=== PATIENT | female | born 1955 | race Caucasian/White ===

== ENCOUNTER 2024-11-28 19:37 | Emergency (ER) | payer MEDICARE, SELFPAY ==
--- OUTSIDE RECORDS SUMMARY | 2024-11-08 14:30 | XMS_ITS | Encounter Summary ---
Author Organization [place] Address [facility] [place] [address] Care Team Providers Care Factory Assembler Name Role Phone Clinic, [place] [facility] Primary Care Provider David Nelson MD Unavailable [phone] Reason for Referral * Consultation (Routine: Next available opening) - Pending Review Specialty Diagnoses / Procedures Referred By Anne polanco Referred To Contact Gastroenterology Diagnoses Epigastric pain Therese Harrington PA-C [address] [place] [address] Phone: tel: fax: Referral ID Status Reason Start Date Expiration Date V isits Requested Visits Authorized [id number] Pending Review 11/08/2024 11/08/2025 1 1 Question Answer Service: Upper Endoscopy Upper Endoscopy Type: EGD Sedation Concerns: No medical conditions affecting sedation Sedation Type: Moderate/Conscious Sedation Reason for Upper Endoscopy: severe epigastric pain Preferred Location: [facility] Patient Scheduling Instructions: [facility] will call you to coordinate your care as prescribed by the provider. If you don t hear from a employee representative within 2 business days, please call . Comments Please be aware that coverage of these services is subject to the terms and limitations of your health insurance plan. Call member services at your health plan with any benefit or coverage questions. [employer] will call you to coordinate your care as prescribed by the provider. If you don t hear from a employee representative within 2 business days, please call . Reason for Visit * Reason Comments Gastrointestinal Problem Encounter Details Date Type Department Care Team ([place] st Contact Info) Description 11/08/2024 2:30 PM CDT Office Visit [facility] [id number] [place] [id number] Therese Harrington PA-C [address] [place] [address] Epigastric pain (Primary Dx) Social History Tobacco Use Types Packs/Day Years Used Date Smoking Tobacco: Some Days Cigarettes 0.5 52.5 Started: 1971 Smokeless Tobacco: Never Tobacco Cessation:Ready to Q uit: Not Asked; Counseling Given: Not Answered Comments:09/23/24 have cut back to about 2 cigarettes a day/ Less than half a pack lately Alcohol Use Standard Drinks/Week Comments No 0 (1 standard drink = 0.6 oz pur e alcohol) PHQ-2 Answer Date Recorded PHQ-2 Score 1 07/22/2024 Adolescent Education Answer Date Record ed Getting School Help Needed Not on file 03/08 Food Insecurity Answer Date Recorded Within the past 12 months, d id you worry that your food would run out before you got money to buy more? No 11/08/2024 Within the past 12 months, d id the food you bought just not last and you didn t have money to get more? No 11/08/2024 Housing Stability Answer Date Recorded Do you have housing? (Negarin g is defined as stable permanent housing and does not include staying outside in a car, in a tent, in an abandoned building, in an overnight correction, or couch-surfing.) No 11/08/2024 Are you worried about losing your housing? No 11/08/2024 Financial Resource Strain Answer Date R ecorded Within the past 12 months, h ave you or your family members you live with been unable to get utilities (heat, electricity) when it was really needed? No 11/08/2024 Transportation Needs Answer Date Record ed Within the past 12 months, h as lack of transportation kept you from medical appointments, getting your medicines, non-medical meetings or appointments, work, or from getting things that you need? No 11/08/2024 Interpersonal Safety Answer Date Record ed Do you feel physically and e motionally safe where you currently live? Yes 11/08/2024 Within the past 12 months, h ave you been hit, slapped, kicked or otherwise physically hurt by someone? No 11/08/2024 Within the past 12 months, h ave you been humiliated or emotionally abused in other ways by your partner or ex-partner? 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 Gender Identity Not on file Sexual Orientation Not on file documented as of this encounter Last Filed Vital Signs Vital Sign Reading Time Taken Comments Blood Pressure 102/68 11/08/2024 2:14 PM CDT Pulse 54 11/08/2024 2:14 PM CDT Temperature 36.4 C (97.6 F) 11/08/2024 2:14 PM CDT Respiratory Rate 16 11/08/2024 2:14 PM CDT Oxygen Saturation 95% 11/08/2024 2:14 PM CDT Inhaled Oxygen Concentration - - Weight 62.4 kg (137 lb 9.6 oz) 11/08/2024 2:14 P M CDT Height 156.8 cm (5' 1.75) 11/08/2024 2:14 PM CD T Body Mass Index 25.37 11/08/2024 2:14 PM CDT documented in this encounter Progress Notes * Therese Harrington PA-C - 11/08/2024 2:30 PM CDT Assessment & Plan Will get h pylori and the following labs. Advised omeprazole 40 mg daily Risks, benefits, side effects and intended purposes discussed. Advised upper GI. Will contact patient with results when known and determine plan Epigastric pain - Helicobacter pylori Antigen Stool; Future - omeprazole (PRILOSEC) [address] capsule; Take 1 capsule (40 mg) by mouth daily. - Comprehensive metabolic panel - Lipase - Adult GI Piledriver Carpenter Referral - Procedure Only; Future - Helicobacter pylori Antigen Stool Nicotine/Tobacco Cessation She reports that she has been smoking cigarettes. She started smoking about 52 years ago. She has a26.2 pack-year smoking history. She has never used smokeless tobacco. Nicotine/Tobacco Cessation Plan Information offered: Patient not interested at this time BMI Estimated body mass index is 25.37 kg/m?? as calculated from the following: Height as of this encounter: 1.568 m (5' 1.75). Weight as of this encounter: 62.4 kg (137 lb 9.6 oz). Messi Chu is a 69 year old, presenting for the following health issues: Gastrointestinal Problem 11/08/2024 1:59 PM Additional Questions Roomed by Lance Accompanied by self History of Present Illness Reason for visit: Really bad stomach pain Symptom onset: More than a month Symptoms include: Pain Symptom intensity: Severe Symptom progression: Staying the same Had these symptoms before: No What makes it worse: Eating and walking What makes it better: Not really laying on my side mostly She is taking medications regularly. Stomach pain Onset/Duration: one month Description: pain all the time mid epigastric, harder to breath, after eating if walks stomach feels hard, low appetite Intensity: severe, 9/10 Progression of Symptoms: same Accompanying Signs & Symptoms: Does it feel like food gets stuck or trouble swallowing: YES feels food is stuck Nausea: No Vomiting (bloody?): No Abdominal Pain: YES mid epigastric Black-Tarry stools: No Bloody stools: No History: Previous similar episodes: No Previous ulcers: YES bleeding ulcer around 2018 Precipitating factors: Caffeine use: YES 10 cups a day Alcohol use: No NSAID/Aspirin use: Yes baby Aspirin Tobacco use: YES little now Worse with toast makes stomach feel hard, walking Alleviating factors: lay on her sides Therapies tried and outcome: Lifestyle changes: None Medications: none Review of Systems Constitutional, HEENT, cardiovascular, pulmonary, GI, , musculoskeletal, neuro, skin, endocrine and psych systems are negative, except as otherwise noted. Objective BP 102/68 (BP Location: Right arm, Patient Position: Sitting, Cuff Size: Adult Regular) Pulse 54 Temp 97.6 ??F (36.4 ??C) (Oral) Resp 16 Ht 1.568 m (5' 1.75) Wt 62.4 kg (137 lb 9.6 oz) LMP (LMP Unknown) SpO2 95% BMI 25.37 kg/m?? Body mass index is 25.37 kg/m??. Physical Exam GENERAL: alert and no distress RESP: lungs clear to auscultation - no rales, rhonchi or wheezes CV: regular rate and rhythm, normal S1 S2, no S3 or S4, no murmur, click or rub, no peripheral edema ABDOMEN: tenderness epigastric and no organomegaly or masses Signed Electronically by: Therese Harrington PA-C documented in this encounter Plan of Treatment Upcoming Encounters Date Type Department Care Team (Latest Contact Info) Description 12/22/2024 10:30 AM CDT Hospital Encounter [facility] Endoscopy [address] [phone] Curtis Riggins [facility] [place] [address] 12/22/2024 10:30 AM CDT - 12/22/2024 11:00 AM CDT Surgery [facility] Endoscopy [address] [phone] Curtis Riggins MD [facility] [place] [address] [address] Esophagoscopy, gastroscopy, duodenoscopy (EGD), combined 01/16/2025 Ancillary Procedure [facility] Heart Care [address] [facility] [address] [place] [phone] Montrell Mckinley MD [address] [place] [address] Scheduled Orders Name Type Priority Associated Diagnoses Orde r Schedule Helicobacter pylori Antigen Stool Lab Routine Epigastric pain Expected: 11/08/2024 (Approximate), Expires: 12/08/2024 Scheduled Procedures Name Priority Associated Diagnoses Date/Ti me ESOPHAGOGASTRODUODENOSCOPY Epigastric pain 12/22/2024 10:30 AM CDT Scheduled Referrals Name Type Priority Associated Diagnoses Orde r Schedule Adult GI Piledriver Carpenter Referral - Procedure Only Referral Routine: Next available opening Epigastric pain Expected: 11/08/2024 (Approximate), Expires: 11/08/2025 documented as of this encounter Procedures Procedure Name Priority Date/Time Associated Diagnosis Comments LIPASE Routine 11/08/2024 2:47 PM CDT Epigastric pain COMPREHENSIVE METABOLIC PANEL Routine 11/08/2024 2:47 PM CDT Epigastric pain documented in this encounter Results * Lipase (11/08/2024 2:47 PM CDT) Lipase 21 13 - 60 U/L 11/09/2024 12:43 AM CDT [facility] Blood BLOOD SPECIMEN / Unknown Venipuncture / Unknown 11/08/2024 2:47 PM CDT 11/08/2024 2:47 PM CDT Therese Harrington PA-C LAB - BLOOD MELODY GARCIA Final Result [facility] Core Lab [address] [facility], [address] [place] [address] * (ABNORMAL) Comprehensive metabolic panel (11/08/2024 2:47 PM CDT) Sodium 139 135 - 145 mmol/L 11/09/2024 12:43 AM CDT [facility] Potassium 4.2 3.4 - 5.3 mmol/L 11/09/2024 12:43 AM CDT [facility] Carbon Dioxide (CO2) 24 22 - 29 mmol/L 11/09/2024 12:43 AM CDT [facility] Anion Gap 9 7 - 15 mmol/L 11/09/2024 12:43 AM CDT [facility] Urea Nitrogen 9.3 8.0 - 23.0 mg/dL 11/09/2024 12:43 AM CDT [facility] Creatinine 1.04(H) 0.51 - 0.95 mg/dL 11/09/2024 12:43 AM CDT [facility] GFR Estimate 58(L) >60 mL/min/1.7 3m2 11/09/2024 12:43 AM CDT [facility] Comment:eGFR calculated us2020 CKD-EPI equation. Calcium 9.2 8.8 - 10.4 mg/dL 11/09/2024 12:43 AM CDT [facility] Chloride 106 98 - 107 mmol/L 11/09/2024 12:43 AM CDT [facility] Glucose 98 70 - 99 mg/dL 11/09/2024 12:43 AM CDT [facility] Alkaline Phosphatase 48 40 - 150 U/L 11/09/2024 12:43 AM CDT [facility] AST 15 0 - 45 U/L 11/09/2024 12:43 AM CDT [facility] ALT 8 0 - 50 U/L 11/09/2024 12:43 AM CDT [facility] Protein Total 6.4 6.4 - 8.3 g/dL 11/09/2024 12:43 AM CDT [facility] Albumin 3.8 3.5 - 5.2 g/dL 11/09/2024 12:43 AM CDT [facility] Bilirubin Total 0.7 <=1.2 mg/dL 11/09/2024 12:43 AM CDT [facility] Blood BLOOD SPECIMEN / Unknown Venipuncture / Unknown 11/08/2024 2:47 PM CDT 11/08/2024 2:47 PM CDT Therese Harrington PA-C LAB - BLOOD MELODY GARCIA Final Result [facility] Core Lab [address] [facility], [address] [place] [address] documented in this encounter Visit Diagnoses Diagnosis Epigastric pain- Primary Abdominal pain, epigastric Epigastric pain Abdominal pain, epigastric documented in this encounter Care Teams Factory Assembler Relationship Specialty Start Date End Date Clinic, [place] [facility] [address] [place] [address] PCP - General 04/22/17 David Nelson MD [address] [place] [address] Assigned Heart and Vascular Provider 08/14/24 documented as of this encounter
[2024-11-28] VITALS (12 sets, daily range): BP systolic 101–116; BP diastolic 58–71; PULSE 49–64; RESP 11–32; TEMP 36.8; O2SAT 93–99; BMI 26.5
--- OUTSIDE RECORDS SUMMARY | 2024-11-28 19:39 | XMS_ITS | Encounter Summary ---
Author Organization [place] Address [address] [place] [address] Care Team Providers Care Plate Maker Name Role Phone Hal Wilson MD Primary Care Provider [phone] Aracelis Montgomery MD [facility] Sarah Hdz MD Primary Care Provider + [phone] Bunny Vera MD Primary Care Provider [phone] [facility] Primary Care Provider David Nleson MD Unavailable [phone] Berna Dorantes-C Unavailable David Nelson MD Unavailable [phone] David Nelson MD Unavailable [phone] Therese Harrington-C Unavailable Encounter Details Date Type Department Care Team (Late st Contact Info) Description 07/08/2005 Office Visit-[facility] Clinic [address] [place] [address] Unknown, MD Valentina Social History Tobacco Use Types Packs/Day Years Used Date Smoking Tobacco: Never Assessed Comments Unknown Sex and Gender Information Value Date Recorded Sex Assigned at Not on file 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 - Congestive Heart Failure, 428.0 2. - Cardiomyopathy Ischemic PHASE 3, 414.8 3. NV-Acute Anterior, 410.11 4. - Cardiac Arrest, 427.5 5. - Hyperlipidemia, 272.4 ALLERGIES NKA MEDICATIONS (including any changes made today) 1. Aspirin 81 mg, 1 p.o. q.d. 2. Combivent 103 mcg-18 mcg/inh, Two puffs p.o. QID 3. Coreg 12.5 mg, 1 p.o. b.i.d. 4. Plavix 75 mg, 1 p.o. q.d. 5. Eplerenone 25 mg, 1 p.o. q.d. 6. Nitroglycerin 0.4 mg, Take as Directed 7. Lipitor 20 mg, 1 p.o. q.d. 8. Altace 5 mg, 1 p.o. q.d. CHIEF COMPLAINTS Followup of - Congestive Heart Failure HISTORY OF PRESENT ILLNESS Kimberley is a 50-year-old female who presents today in the [facility] clinic for follow-up regarding cardiomyopathy. You may recall that she had a very complicated course in the hospital. She was admitted at [facility] following a cardiac arrest and was discharged approximately one month later.She underwent emergent angioplasty and stenting to her proximal LAD and was resuscitated from the cardiac arrest. She initially had an EF estimated at 5% but upon discharge this came up to 25%. 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 She had one 4-5 beat run of nonsustained ventricular tachycardia which was noted on incidental monitoring. She underwent hypothermic protocol and was intubated as stated for 24 hours post cardiac catheterization. She also hadan intra-aortic balloon pump placed and seemed to recover quite well. She is currently wearing a Life Vest which she will wear until July when she has her repeat echocardiogram to determine if ICD therapy is necessary. When I last saw Kimberley, she was actually feeling quite well. We went over a lot of education and looked over her medications. Her blood pressure was very low and therefore we were unable to increase any of her cardiomyopathy meds. In reviewing her diet with her today, she has not been very diligentabout watching sodium. She had fish sticks and pizza yesterday. She was unaware of the fact that foods that are prepared would be high in sodium. We did discuss this last time but apparently she didnot recall this. I referred her back to the C.O.R.E. clinic booklet that she was given at our last office visit and discussed with her that everything she eats she must look at the labels prior. I also told her that in general canned foods and frozen prepared dishes are very high in sodium. Kimberley denies any chest discomfort, no neck, jaw or arm pain. She has not had dizziness or light-headedness, no episodes of syncope or presyncope, no PND, orthopnea or pedal edema. PAST HISTORY Past Medical Illnesses: no previous history of significant medical illnesses. Past Cardiac Illnesses: no previous history of cardiac disease. Infectious Diseases: no previous history of significant infectious diseases. Surgical Procedures: no previous surgical procedures. Trauma History: no previous history of significant trauma. Cardiology Procedures-Invasive: no previous interventional or invasive cardiology procedures. Cardiology Procedures-Noninvasive: no previous non-invasive cardiovascular testing. 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, EF 5-10%, cypher stent placed in LAD Left Ventricular Ejection Fraction: EF 30-35% PMHx Echo Results: EF 25-30%, Akinesis of the mid and distal anterior apical mid and distal septal coley, distal inferior wall hypokinetic, trace pericardial effusion, left-sided mod pleural effusion FAMILY HISTORY: Father - Age 87, ; Mother - alive and well; Brother 1 - alive and well; Brother 2 - alive and well; Brother 3 - alive and well; Sister 1 - alive and well; Sister 2 - alive and well; CARDIAC RISK FACTORS Tobacco Abuse: used to smoke, but quit; Family History of Heart Disease: negative; Hyperlipidemia: positive; Diabetes Mellitus: negative; Prior History of Heart Disease: negative; Sedentary Life Style:positive; Menopausal:no hormonal replacement SOCIAL HISTORY Alcohol Use - denies drinking and stopped 05/20/05; Smoking - used to smoke but quit and on 05/20/05; Diet - low sodium (less than 2 grams); Lifestyle - single; Exercise - walking; Seat Belt Use - always; 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 EYES denies diplopia, history of glaucoma or visual field defects. EARS, NOSE, THROAT, MOUTH hoarseness RESPIRATORY snoring CARDIOVASCULAR negative for palpitations, chest pain, orthopnea, PND, peripheral edema, syncope or claudication. ABDOMINAL denies change in bowel habits, dyspepsia, ulcer disease, hematochezia or melena. GENITOURINARY-FEMALE post menopausal without hormonal replacement MUSCULOSKELETAL denies any history of arthritic symptoms or back problems. NEUROLOGICAL denies any history of recurrent headaches, strokes, TIA, or seizure disorder. PSYCHIATRIC denies any history of depression, substance abuse or change in cognitive functions. ENDOCRINE hyperlipidemia HEMATOLOGICAL/IMMUNOLOGIC denies any food allergies, seasonal allergies, bleeding disorders or lymphadenopathy. PHYSICAL EXAMINATION VITAL SIGNS: Blood Pressure: 100/78 Sitting, Left arm, regular cuff 100/76 Sitting, Right arm, regular cuff Pulse- 64.00/min. Weight- 156.00 lbs. Height- 61.00 Temperature- .00 CONSTITUTIONAL cooperative, alert and oriented,well developed, well nourished, in no acute distress. SKIN warm and dry to touch, no apparent skin lesions, or masses noted. HEAD normocephalic, atraumatic EYES Pupils equal and round, conjunctivae and lids unremarkable, sclera white, no xanthalasma ENT no pallor or cyanosis, dentition good NECK carotid pulses are full and equal bilaterally, JVP normal, no carotid bruit, no thyromegaly CHEST clear to auscultation CARDIAC regular rhythm, S1 normal, S2 normal, No S3 or S4, Apical impulse not displaced, no murmurs, gallops or rubs detected., frequent ectopy ABDOMEN abdomen soft, bowel sounds normoactive, no masses, no hepatosplenomegaly, non- tender, no bruits PERIPHERAL PULSES pulses full and equal in all extremities, no bruits auscultated. EXTREMITIES & BACK no deformities, clubbing, cyanosis, erythema or edema observed. There are no spinal abnormalities noted. Normal muscle strength and tone. NEUROLOGICAL no gross motor deficits noted, affect appropriate, oriented to time, person and place. MEDICATIONS UPDATED TODAY: Lipitor 20 mg, 1 p.o. q.d., 0 Altace 5 mg, 1 p.o. q.d., #60 MEDICATION STOPPED TODAY: Altace 2.5 mg IMPRESSIONS/PLAN 1. Cardiomyopathy with her EF last estimated at 25%. She is currently stage C, Class II heart failure patient. She is not optimized on medical therapy and given her blood pressure we are going to have a difficult time getting up to optimal doses. Today I would like to increase her Altace to 5mg. She has a mildly elevated SVR at 1200 and this may help to bring that down. I am hesitant to further increase the Coreg at this time but may consider that next time if her blood pressure allows. She will be following up with Dr. Estrada in July with an echocardiogram and office visit to reevaluate her heart function. At that time, further visits in the C.O.R.E. clinic can be scheduled as necessary. For now, Kimberley will continue to weigh herself daily and call me should her weight go up greater than2 pounds overnight or greater than 5 pounds in a week as well as if she has any symptoms, problems or concerns. Thank you very much for allowing me to participate in her care and I would be happy to see her again in the future. TODAYS ORDERS 1. Basic Metabolic Panel Today 2. Cholesterol Fasting 1 month Isis Vergara documented in this encounter Plan of Treatment Upcoming Encounters Date Type Department Care Team (Latest Contact Info) Description 12/22/2024 10:30 AM CDT Hospital Encounter [facility] Endoscopy [address] [phone] Curtis Riggins MD [facility] [address] [id number] 12/22/2024 10:30 AM CDT - 12/22/2024 11:00 AM CDT Surgery [facility] Endoscopy [address] [phone] Curtis Riggins MD [facility] [address] [id number] Esophagoscopy, gastroscopy, duodenoscopy (EGD), combined 01/16/2025 Ancillary Procedure [facility] Heart Care [address] [facility] [address] [address] [phone] Montrell Mckinley MD [address] [place] [address] Scheduled Procedures Name Priority Associated Diagnoses Date/Ti ia ESOPHAGOGASTRODUODENOSCOPY Epigastric pain 12/22/2024 10:30 AM CDT documented as of this encounter Visit Diagnoses Not on filedocumented in this encounter Care Teams Plate Maker Relationship Specialty Start Date End Date Hal Wilson MD [address] [place] [address] PCP - General 04/19/08 02/22/12 Aracelis Montgomery MD PCP - General 02/23/12 04/27/13 Sarah Isabel MD PCP - General Internal Medicine 04/28/13 10/30/14 Bunny Vera MD PCP - General Internal Medicine 10/31/14 04/21/[address] [address] PCP - General 04/22/17 David Nelson MD [address] [address] [address] Assigned Heart and Vascular Provider 03/16/20 09/15/20 Berna Dorantes PAJaelC [address] [place] [address] Assigned Heart and Vascular Provider 09/16/20 08/10/21 David Nelson MD [address] [address] [address] Assigned Heart and Vascular Provider 08/11/21 05/15/24 David Nelson MD [address] [facility] [address] [address] Assigned Heart and Vascular Provider 08/14/24 Therese Harrington PA-C [address] [place] [address] Assigned PCP 11/14/24 documented as of this encounter
--- OUTSIDE RECORDS SUMMARY | 2024-11-28 19:39 | XMS_ITS | Encounter Summary ---
Author Organization [facility] Address [address] [place] [address] Care Team Providers Care Repair Department Manager Name Role Phone Hal Wilson MD Primary Care Provider [phone] Aracelis Montgomery MD Primary Care Provider [facility] Sarah Hdz MD Primary Care Provider + [phone] Bunny Vera MD Primary Care Provider [phone] [facility] Primary Care Provider David Nelson MD Unavailable [phone] Berna Dorantes-C Unavailable David Nelson MD Unavailable [phone] David Nelson MD Unavailable [phone] Therese Harrington-C Unavailable Encounter Details Date Type Department Care Team (Late st Contact Info) Description 08/22/2005 Office Visit-[facility] [address] [place] [address] Unknown, MD Valentina Social History Tobacco Use Types Packs/Day Years Used Date Smoking Tobacco: Never Assessed Comments Unknown Sex and Gender Information Value Date Recorded Sex Assigned at Not on file 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 DATE: 08/22/2005 KMIBERLEY CONTRERAS DATE OF : 1955 AGE: [age] years old Referring Physician: NONE,NO Referring Clinic: 1 CURRENT DIAGNOSES 1. - Congestive Heart Failure, 428.0 2. - Cardiomyopathy Ischemic PHASE 3, 414.8 3. [place]-Acute Anterior, 410.11 4. - Cardiac Arrest, 427.5 5. - Hyperlipidemia, 272.4 ALLERGIES NKA MEDICATIONS (including any changes made today) 1. Aspirin 81 mg, 1 p.o. q.d. 2. Combivent 103 mcg-18 mcg/inh, Two puffs p.o. QID 3. Coreg 12.5 mg, 1 p.o. b.i.d. 4. Nitroglycerin 0.4 mg, Take as Directed 5. Lipitor 20 mg, 1 p.o. q.d. 6. Inspra 25 mg, 1 p.o. q.d. 7. Prednisone 20 Mg, 1 p.o. bidx4 days,then qd until done 8. Altace 5 Mg, 1 p.o. q.d. 9. Plavix 75 Mg, 1 p.o. q.d. CHIEF COMPLAINTS F/u HISTORY OF PRESENT ILLNESS Mrs. Contreras is here with her daughter present. Her daughter continues to smoke but Kimberley has stopped. Kimberley had an acute anterior myocardial infarction associated with cardiac arrest in May. Herleft ventricular function by echo just done this week shows left ventricular ejection fraction of 25% still with extensive anterior wall infarct. She has had no angina. She has had no clinical heart failure. She denies any arrhythmic sensations but she is wearing a LifeVest because she had a lot ofpost [place] arrhythmias. Today I took this opportunity to talk to her about the indications for prophylactic ICD. She is nowat least 60 days post event. I talked to the patient and her daughter about the MADIT II study which showed a statistically important decrease in mortality with prophylactic ICD therapy. We went overthe procedure itself, talked about the implant, procedural risks including infection, bleeding, pneumothorax, and cardiac perforation at roughly 1% or less. We also talked about ICD testing at the time of the implant. She I think has a good understanding of the rationale for the procedure since she is willing to wear the LifeVest. Today her lipid profile is still a little high, but I chose not to discuss the issue, to try to notconfuse the problems with the ICD therapy. In addition today, she complained of a rash when she was put on spironolactone instead of Inspra. She was seen in the Emergency Room and given 50 mg of prednisone which she said greatly made the rashgo away, but as soon as she ran out of prednisone the rash has returned. She is not really itching but she asked today for more prednisone. Her exam shows that she is not in heart failure. Her lungs are clear. Her blood pressure is a little bit soft, systolic roughly 100. Heart rate is regular. PAST HISTORY Past Medical Illnesses: hyperlipidemia Past Cardiac Illnesses: cardiomyopathy(ischemic), coronary artery disease, S/P myocardial infarction- anterior, resuscitatedcardiac arrest outside of hospital Cardiology Procedures-Invasive: PTCA with intracoronary stent placement of proximal LAD May 2005 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, EF 5-10%, cypher stent placed in LAD Left Ventricular Ejection Fraction: EF 30-35%, 25% by echo 07/28 PMHx Echo Results: EF 25-30%, Akinesis of [...] History of Heart Disease: negative; Hyperlipidemia: positive; Hypertension: negative; Diabetes Mellitus: negative; Prior History of Heart Disease: negative; Obesity:negative; Sedentary Life Style:positive; Age:positive; Menopausal:no hormonal replacement SOCIAL HISTORY Alcohol Use - denies drinking and stopped 05/20/05; Smoking - used to smoke but quit and on 05/20/05; Diet - low sodium (less than 2 grams); Lifestyle - single; Exercise - walking; Seat Belt Use - always; 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 EYES denies diplopia, history of glaucoma or visual field defects. EARS, NOSE, THROAT, MOUTH hoarseness RESPIRATORY snoring, denies dyspnea, snoring, cough, wheezing or hemoptysis. CARDIOVASCULAR negative for palpitations, chest pain, orthopnea, [...] lymphadenopathy. PHYSICAL EXAMINATION VITAL SIGNS: Blood Pressure: 94/62 Sitting, Left arm, regular cuff Pulse- 70.00/min. Weight- 154.00 lbs. Height- 61.00 Temperature- .00 CONSTITUTIONAL in no acute distress, stocky SKIN petchial rash all over body HEAD normocephalic, atraumatic EYES PERRL, EOMS intact without nystagmus ENT no pallor or cyanosis, dentition good NECK carotid pulses are full and equal bilaterally, JVP normal, no carotid bruit, no thyromegaly CHEST clear to auscultation CARDIAC no murmurs, gallops or rubs detected ABDOMEN no hepatosplenomegaly, mildly obese PERIPHERAL PULSES pulses full and equal in all extremities, no bruits auscultated. EXTREMITIES & BACK no clubbing, cyanosis or edema NEUROLOGICAL no gross motor deficits noted, affect appropriate, oriented to time, person and place. MEDICATIONS UPDATED TODAY: Prednisone 20 mg, 1 p.o. q.d., 10 Prednisone 20 Mg, 1 p.o. bidx4 days,then qd until done, 14 Altace 5 Mg, 1 p.o. q.d., #30 Plavix 75 Mg, 1 p.o. q.d., #30 IMPRESSIONS/PLAN 1. Severe ischemic cardiomyopathy now roughly two months post event. 2. Widespread rash throughout her body, likely urticarial rash due to drug reaction. 3. History of smoking. At the current time she is not smoking. RECOMMENDATIONS: 1. She wants to think about having an ICD this weekend. I gave her a pamphlet describing ICD, goingover what we talked about today. I have asked her to call us as soon as she is able to make a decision, in which case we can go ahead and proceed. She just needs to have a prophylactic device put in.2. I gave her another course of prednisone 20 mg b.i.d. for the next four days, then to go to 20 mgq.d. for the next six days, and then stop. I have asked her to see Dr. Phelan if this rash continues. 3. She will continue on all of her current cardiac medications including Plavix. I told her thather risk of superficial bleeding might be a little bit greater since she will be on Plavix when herICD is implanted. 4. I briefly talked about the problems that all of the vendors have had with their ICDs, and at this point in time the patient has not expressed any vendor preference. TODAYS ORDERS 1. ICD Initial Implant HICD anytime she wants 2. F/U with Vanita Ba, MSN, ANP routine, discuss lipids Ba Estrada M.D. cc:Yvette Phelan M.D. documented in this encounter Plan of Treatment Upcoming Encounters Date Type Department Care Team (Latest Contact Info) Description 12/22/2024 10:30 AM CDT Hospital Encounter [facility] [address] [id number] Curtis Riggins MD [facility] [address] [id number] 12/22/2024 10:30 AM CDT - 12/22/2024 11:00 AM CDT Surgery [facility] [address] [id number] Curtis Riggins MD [facility] [place] [address] Esophagoscopy, gastroscopy, duodenoscopy (EGD), combined 01/16/2025 Ancillary Procedure [facility] [address] [facility] [address] [place] [phone] Montrell Mckinley MD [address] [place] [address] Scheduled Procedures Name Priority Associated Diagnoses Date/Ti me ESOPHAGOGASTRODUODENOSCOPY Epigastric pain 12/22/2024 10:30 AM CDT documented as of this encounter Visit Diagnoses Not on filedocumented in this encounter Care Teams Repair Department Manager Relationship Specialty Start Date End Date Hal Wilson MD [address] [place] [address] PCP - General 04/19/08 02/22/12 Aracelis Montgomery MD PCP - General 02/23/12 04/27/13 Sarah Isabel MD PCP - General Internal Medicine 04/28/13 10/30/14 Bunny Vera MD PCP - General Internal Medicine 10/31/14 04/21/[address] [address] PCP - General 04/22/17 David Nelson MD [address] [place] [address] Assigned Heart and Vascular Provider 03/16/20 09/15/20 Berna Dorantes PA-C [address] [place] [address] Assigned Heart and Vascular Provider 09/16/20 08/10/21 David Nelson MD [address] [place] [address] Assigned Heart and Vascular Provider 08/11/21 05/15/24 David Nelson MD [address] [place] [address] Assigned Heart and Vascular Provider 08/14/24 Therese Harrington PA-C [address] [place] [address] Assigned PCP 11/14/24 documented as of this encounter
--- OUTSIDE RECORDS SUMMARY | 2024-11-28 19:39 | XMS_ITS | Encounter Summary ---
Author Organization [facility] Address [address] [place] [address] Care Team Providers Care Fiberglass Quality Technician Name Role Phone Hal Wilson MD Primary Care Provider [phone] Aracelis Montgomery MD Primary Care Provider Unavailabl Sarah Hdz MD Primary Care Provider + [phone] Bunny Vera MD Primary Care Provider [phone] [facility] Primary Care Provider David Nelson MD Unavailable [phone] Berna Dorantes-C Unavailable David Nelson MD Unavailable [phone] David Nelson MD Unavailable [phone] Therese Harrington-C Unavailable Encounter Details Date Type Department Care Team (Late st Contact Info) Description 04/07/2008 Office Visit-[facility] [address] [place] [address] Unknown, DoctorMD Social History Tobacco Use Types Packs/Day Years Used Date Smoking Tobacco: Every Day Comments:less than 1/2 ppd Alcohol Use Standard Drinks/Week Comments Not Asked 0 (1 standard drink = 0.6 oz pur e alcohol) Comments No Sex and Gender Information Value Date Recorded Sex Assigned at Not on file 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 Hepatomegaly, 789.1 2. - Hyperlipidemia, 272.4 3. ICD-[id number], V45.02 4. - Cardiac Arrest, 427.5 5. - Congestive Heart Failure, 428.0 6. - Cardiomyopathy Ischemic PHASE 3, 414.[address]-Acute Anterior, 410.11 ALLERGIES NKA MEDICATIONS (prior to changes made today) 1. Diovan 80 Mg, 1 p.o. q.d. 2. Inspra 25 Mg, 1 p.o. q.d. 3. Coreg 12.5 Mg, 1 p.o. b.i.d. 4. Nitroglycerin 0.4 mg, Take as Directed 5. Aspirin 81 mg, 1 p.o. q.d. 6. Simvastatin 40 Mg, NONE SINCE 2007 CHIEF COMPLAINTS f/u lipids HISTORY OF PRESENT ILLNESS Ms. Contreras is a 52-year-old female coming in for routine follow-up appointment. She had last seen Dr. Gonzalez in the office in June of this year. Her history includes previous anterior myocardial infarction associated with a cardiac arrest in May of 2005. Echo at that time showed ejection fraction of 25% with extensive anterior wall infarct. Patient had been wearing a life vest secondary to post infarct arrhythmias and underwent defibrillator implant in August of 2005 with a Guidant device. The patient unfortunately continues to smoke cigarettes. She does not exercise regularly. She was previously given a prescription for Chantix but never utilized this. She has not had any firings of her ICD. Unfortunately despite recurrent requests she has not established with a primary physician jigar. The patient comes in today and did have a fasting lipid panel. She does tell me, however, her simvastatin was discontinued roughly two months ago when it was not filled secondary to her absence in follow-up. When asked the patient states she has been feeling well without significant issues. However, upon review of lab work below she does admit to belly pain for approximately 4-5 months. She states that she has diarrhea after she eats just about anything. She denies any nausea or vomiting. She states that her appetite is somewhat reduced. She denies any chest pain, dyspnea, or lower extremity edema. She has no syncope though occasional dizziness. She does comment that she admits to a couple of mixeddrinks every night. Lab work today shows triglycerides at 131, total cholesterol 203, HDL 74, LDL 103, ALT 138. Of note, she has had an elevated ALT in the past though only mildly so. In 2005, her ALT peaked at 56. Other checks most recently in June were actually normal with a normal AST at 40. Given the abnormality of her ALT, I did draw a full hepatic panel off this lab work as well as requested amylase and lipase. These labs are pending. Please see below for remaining history and physical exam. PAST HISTORY Past Medical Illnesses: hyperlipidemia Past Cardiac Illnesses: cardiomyopathy(ischemic), coronary artery disease, S/P myocardial infarction- anterior, resuscitatedcardiac arrest outside of hospital Cardiology Procedures-Invasive: PTCA with intracoronary stent placement of proximal LAD May 2005, ICD 09/01/05 Cardiology Procedures-Noninvasive: echocardiogram March 2007 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, EF 5-10%, cypher stent placed in LAD PMHx Echo Results: EF 25-30%, Akinesis of the mid and distal anterior apical mid and distal septal cloey, distal inferior wall hypokinetic, trace pericardial effusion, left-sided mod pleural effusion, 03/31 no significant change Left Ventricular Ejection Fraction: EF 30-35%, 25% by echo 07/28, 03/31 20-25% per echo FAMILY HISTORY: Father - Age 87, ; Mother - alive and well; Brother 1 - alive and well; Brother 2 - alive and well; Brother 3 - alive and well; Sister 1 - alive and well; Sister 2 - alive and well; CARDIAC RISK FACTORS Tobacco Abuse: currently smoking, 6-8 cig's per day; Family History of Heart Disease: negative; Hyperlipidemia: positive; Hypertension: negative; Diabetes Mellitus: negative; Prior History of Heart Disease: negative; Obesity:negative; Sedentary Life Style:positive; Age:positive; Menopausal:no hormonal replacement SOCIAL HISTORY Alcohol Use - drinks daily; Smoking - smokes cigarettes, and 6-8 per day; Diet - low sodium (less than 2 grams) and caffeine use-3-4 per day; Lifestyle - single; Exercise - walking; Seat Belt Use - always; 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 EARS, NOSE, THROAT, MOUTH denies any hearing loss, epistaxis, hoarseness or difficulty speaking. RESPIRATORY cough CARDIOVASCULAR dizziness, light headedness, when getting up ABDOMINAL abdominal disomfort 4-5 month, worse after eating, diarrhea after eating, no N/V. GENITOURINARY-FEMALE post menopausal without hormonal replacement MUSCULOSKELETAL chronic back pain NEUROLOGICAL denies any history of recurrent headaches, strokes, TIA, or seizure disorder. PSYCHIATRIC stress ENDOCRINE hyperlipidemia HEMATOLOGICAL/IMMUNOLOGIC denies any food allergies, seasonal allergies, bleeding disorders or lymphadenopathy. PHYSICAL EXAMINATION VITAL SIGNS: Blood Pressure: 100/60 Sitting, Left arm, large cuff Pulse- 68.00/min. Weight- 176.00 lbs. Height- 61.00 Temperature- .00 CONSTITUTIONAL cooperative, alert, in no acute distress SKIN palmar erythema, spider angiomas HEAD normocephalic EYES conjunctivae and lids unremarkable, Pupils equal and round, EOMS intact ENT ears, nose and throat unremarkable NECK no thyromegaly, carotid pulses are full and equal bilaterally without bruits CHEST clear to auscultation, increased A-P diameter, normal symmetry CARDIAC RRR without murmur/lift/trhill ABDOMEN non-tender, moderately obese PERIPHERAL PULSES pulses full and equal in all extremities EXTREMITIES & BACK no edema PSYCHIATRIC appropriate NEUROLOGICAL moves extremities equally MEDICATIONS UPDATED/STARTED TODAY: Simvastatin 40 Mg, NONE SINCE 2007, #30 MEDICATIONS REFILLED/STOPPED TODAY: Simvastatin 40 Mg 1 p.o. q.d. NONE SINCE 2007 #30 Refill and Simvastatin 40 mg 1 p.o. q.d. #30 Refill IMPRESSION AND PLAN: Ms. Contreras is a 52-year-old female coming in for follow-up with above history. 1. Cardiac status reviewed with patient without a significant abnormality. Of note, she is not on statin but given the abnormal liver function this would not be added at present. We will follow-up toassure that this can be restarted if her liver status stabilizes. 2. ICD will be checked per routine today. 3. Concerning findings given markedly elevated ALT, palmar erythema, spider angiomas, telangiectasias, and alcohol use. Interestingly though she has actually been off of her simvastatin which might have actually been beneficial for her given her liver status. Hepatic panel, amylase, lipase pending.She has been having some other problems with diarrhea after eating and belly pain. Given these symptoms it is of up most importance that she follow-up in the very near future with an drug inspector and may require referral to potentially GI as well. She has been told on multiple occasions to establish with an drug inspector. I did discuss this case with Dr. Benavidez with recommendation to refer her to [facility] for further work-up. She was given the name of the clinic to follow-up and she is encouraged should this does not work with her insurance to follow-up with other general practitioner though again she states she has not routinely followed up with anyone. I did discuss with her the possibility of hepatic failure if this is not dealt with in a timely manner. She is encouraged to discontinue alcohol use. 4. We did discuss the importance of discontinuing tobacco use as well. Thank you for the opportunity to see Kimberley Kvtroy today. I would like her to follow-up again with Dr. Gonzalez. She is encouraged again the importance of following up with an drug inspector. TODAYS ORDERS 1. Lipid profile/ALT 1 day 2. Hepatic Profile Today- please use sample drawn this AM 3. Amylase Today- if possible off sample from this AM 4. (Define) Lipase - if possible off today's blood sample 5. F/U with Jose Alejandro Gonzalez MD 3 months 6. Return Visit 1 week - ESTABLISH WITH GALLEY STRIPPER; recommended JANAY Parada documented in this encounter Plan of Treatment Upcoming Encounters Date Type Department Care Team (Latest Contact Info) Description 12/22/2024 10:30 AM CDT Hospital Encounter [facility] [address] [phone] Curtis Riggins MD [facility] [address] [id number] 12/22/2024 10:30 AM CDT - 12/22/2024 11:00 AM CDT Surgery [facility] [address] [id number] Curtis Riggins MD [facility] [address] [place] [address] Esophagoscopy, gastroscopy, duodenoscopy (EGD), combined 01/16/2025 Ancillary Procedure [facility] [address] [place] [phone] Montrell Mckinley MD [address] [place] [address] Scheduled Procedures Name Priority Associated Diagnoses Date/Ti me ESOPHAGOGASTRODUODENOSCOPY Epigastric pain 12/22/2024 10:30 AM CDT documented as of this encounter Visit Diagnoses Not on filedocumented in this encounter Care Teams Fiberglass Quality Technician Relationship Specialty Start Date End Date Hal Wilson MD [address] [place] [address] PCP - General 04/19/08 02/22/12 Aracelis Montgomery MD PCP - General 02/23/12 04/27/13 Sarah Isabel MD PCP - General Internal Medicine 04/28/13 10/30/14 Bunny Vera MD PCP - General Internal Medicine 10/31/14 04/21/[address] [address] PCP - General 04/22/17 David Nelson MD [address] [place] [address] Assigned Heart and Vascular Provider 03/16/20 09/15/20 Berna Dorantes PA-C [address] [place] [address] Assigned Heart and Vascular Provider 09/16/20 08/10/21 David Nelson MD [address] [place] [address] Assigned Heart and Vascular Provider 08/11/21 05/15/24 David Nelson MD [address] [place] [address] Assigned Heart and Vascular Provider 08/14/24 Therese Harrington PA-C [address] [place] [address] Assigned PCP 11/14/24 documented as of this encounter
--- OUTSIDE RECORDS SUMMARY | 2024-11-28 19:39 | XMS_ITS | Encounter Summary ---
Author Organization [facility] Address [address] [place] [address] Care Team Providers Care Transition Rn Name Role Phone Hal Wilson MD Primary Care Provider [phone] Aracelis Montgomery MD Primary Care Provider [facility] Sarah Hdz MD Primary Care Provider + [phone] Bunny Vera MD Primary Care Provider [phone] [facility] Primary Care Provider David Nelson MD Unavailable [phone] Berna Dorantes-C Unavailable David Nelson MD Unavailable [phone] David Nelson MD Unavailable [phone] Therese Harrington-C Unavailable Encounter Details Date Type Department Care Team (Late st Contact Info) Description 06/17/2005 Office Visit-[facility] [address] [place] [address] Unknown, MD Valentina Social History Tobacco Use Types Packs/Day Years Used Date Smoking Tobacco: Never Assessed Comments Unknown Sex and Gender Information Value Date Recorded Sex Assigned at Not on file 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 - Congestive Heart Failure, 428.0 2. [place]-Acute Anterior, 410.11 3. - Cardiac Arrest, 427.5 4. - Hyperlipidemia, 272.4 ALLERGIES NKA MEDICATIONS (including any changes made today) 1. Aspirin 81 mg, 1 p.o. q.d. 2. Combivent 103 mcg-18 mcg/inh, Two puffs p.o. QID 3. Coreg 12.5 mg, 1 p.o. b.i.d. 4. Plavix 75 mg, 1 p.o. q.d. 5. Eplerenone 25 mg, 1 p.o. q.d. 6. Altace 2.5 mg, 1 p.o. q.d. 7. Nitroglycerin 0.4 mg, Take as Directed CHIEF COMPLAINTS Hospital Follow up HISTORY OF PRESENT ILLNESS Kimberley is a 50-year-old female who presents today as a new patient in the [facility] regarding hercardiomyopathy. You may recall that she had a very complicated course in the hospital. She was admitted at [facility] following a cardiac arrest and discharged about a month later. She underwent emergent angioplasty and stenting to her proximal LAD and was resuscitated out of the cardiac arrest. She had a severe reduction in her left ventricular function estimated at 5% initially, but prior to discharge it had come up to 25%. She also had anoxic encephalopathy, which resolved following the cardiac arrest. She had one 4 to 5 beat run of asymptomatic, nonsustained ventricular tachycardia, which was noted on incidental monitoring. She underwent the hypothermic protocol and was intubated and sedated for 24 hours post cardiac catheterization. She also had an intraaortic balloon pump placed and seemed to recover quite well. She is currently wearing a Life-Vest, which she will wear until her heart function is reevaluated in July of this year. Today, I do not have any lab work to review but I did review her EKG and bioimpedance test with her. The EKG shows sinus rhythm with a heart rate of 67 beats a minute. Her bioimpedance test shows mildly elevated SVR at 1210 standing and 1243 sitting. Thoracic fluid content is low at 22. Cardiac output is 3.6 standing and 4.2 sitting. Blood pressure is very low. It was very difficult to hear her blood pressure. My nurse was unable to hear it. I was able to hear 68/40 and I was able to palpate 70systolic. The patient denies any dizziness or lightheadedness. She did not bring in a medication list, but will call us later today with her medication as she is taking it. She currently feels well. She is not having any symptoms of dyspnea at rest or on exertion. she hasstopped smoking and drinking, although I do note that I smell smoke on her today. She has not had any further chest discomfort. She does report some sternal soreness due to chest compressions. No PND, orthopnea or pedal edema. PAST HISTORY [...] Cardiology Procedures-Noninvasive: no previous non-invasive cardiovascular testing. 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 PHYSICAL EXAMINATION VITAL SIGNS: Blood Pressure: / Sitting, Left arm, regular cuff 70/ Palpated Pulse- 76.00/min. Weight- 157.00 lbs. Height- 61.00 Temperature- .00 CONSTITUTIONAL cooperative, [...] time, person and place. MEDICATIONS UPDATED TODAY: IMPRESSIONS/PLAN 1. Cardiomyopathy with an EF of 25% following cardiac arrest. This is a 50-year-old female who has recovered quite nicely from an anoxic encephalopathy following her cardiac arrest and acute anteriorwall myocardial infarction. She is a Stage C Class 2 heart failure patient, currently not optimizedon medications. Given her blood pressure today or what we think is her blood pressure, we are unable to further titrate medications. I would like to see how she does over the next few weeks and see if it would be possible to at least try going up on the Altace. Ideally, we will switch this to lisinopril due to cost reasons and since her SVR is mildly elevated, we may be able to safely increase the medicine to 7.5 mg of lisinopril. I will obtain a basic metabolic panel today as spironolactone dk new medication for her. In addition, we will check a TSH and ferratin level as those were not done in the hospital. She did have a basic metabolic panel done and that was quite good with renal function of 12 and 0.96. We are currently working on titrating medications to see if she qualifies for device therapy. She does have a Life-Vest in place for the time being. In addition, she will have a follow up echocardiogram done in July and a visit with Dr. Estrada to review those results. Thank you very much for allowing me to participate in her care. I would be happy to see her again in the future. TODAYS ORDERS 1. T3, Thyroxine, TSH Profile Today 2. Ferritin Today 3. Basic Metabolic Panel Today 4. [facility] F/U Isis Vergara documented in this encounter Plan of Treatment Upcoming Encounters Date Type Department Care Team (Latest Contact Info) Description 12/22/2024 10:30 AM CDT Hospital Encounter [facility] [address] [phone] Curtis Riggins MD [facility] [place] [address] [address] [place] [address] 12/22/2024 10:30 AM CDT - 12/22/2024 11:00 AM CDT Surgery [facility] [address] [phone] Curtis Riggins MD [facility] [place] [address] [address] [place] [address] Esophagoscopy, gastroscopy, duodenoscopy (EGD), combined 01/16/2025 Ancillary Procedure [facility] [address] [facility] [address] [place] [phone] Montrell Mckinley MD [address] [place] [address] Scheduled Procedures Name Priority Associated Diagnoses Date/Ti va ESOPHAGOGASTRODUODENOSCOPY Epigastric pain 12/22/2024 10:30 AM CDT documented as of this encounter Visit Diagnoses Not on filedocumented in this encounter Care Teams Transition Rn Relationship Specialty Start Date End Date Hal Wilson MD [address] [address] PCP - General 04/19/08 02/22/12 Aracelis Montgomery, PCP - General 02/23/12 04/27/13 Sarah Isabel MD PCP - General Internal Medicine 04/28/13 10/30/14 Bunny Vera MD PCP - General Internal Medicine 10/31/14 04/21/[address] [address] PCP - General 04/22/17 David Nelson MD [address] [place] [address] Assigned Heart and Vascular Provider 03/16/20 09/15/20 Berna Dorantes PA-C [address] [place] [address] Assigned Heart and Vascular Provider 09/16/20 08/10/21 David Nelson MD [address] [place] [address] Assigned Heart and Vascular Provider 08/11/21 05/15/24 David Nelson MD [address] [place] [address] Assigned Heart and Vascular Provider 08/14/24 Therese Harrington PA-C [address] [place] [address] Assigned PCP 11/14/24 documented as of this encounter
--- OUTSIDE RECORDS SUMMARY | 2024-11-28 19:39 | XMS_ITS | Encounter Summary ---
Author Organization [facility] Address [facility] [place] [address] Care Team Providers Care Multimedia Production Assistant Name Role Phone Hal Wilson MD Primary Care Provider [phone] Aracelis Montgomery MD Primary Care Provider Unavailabl Sarah Isabel MD Primary Care Provider + [phone] Bunny Vera MD Primary Care Provider [phone] [facility] Primary Care Provider David Nelson MD Unavailable [phone] Berna Dorantes PA-C Unavailable David Nelson MD Unavailable [phone] David Nelson MD Unavailable [phone] Therese Harrington PA-C Unavailable Encounter Details Date Type Department Care Team (Late st Contact Info) Description 01/08/2007 Office Visit-[facility] [place] [address] [facility] [address] [place] [phone] Maryse Rodriguez PA-C XXX RESIGNED XXX [address] [facility] [address] [place] [address] Social History Tobacco Use Types Packs/Day Years Used Date Smoking Tobacco: Never Assessed Comments Unknown Sex and Gender Information Value Date Recorded Sex Assigned at Not on file 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 ICD-[id number], V45.02 2. [place]-Acute Anterior, 410.11 3. - Cardiac Arrest, 427.5 4. - Hyperlipidemia, 272.4 5. - Congestive Heart Failure, 428.0 6. Cardiomyopathy, 425.4 7. - Cardiomyopathy Ischemic PHASE 3, 414.8 ALLERGIES NKA MEDICATIONS (prior to changes made today) 1. Inspra 25 Mg, 1 p.o. q.d. 2. Aspirin 81 mg, 1 p.o. q.d. 3. Nitroglycerin 0.4 mg, Take as Directed 4. Altace 5 Mg, 1 p.o. q.d. 5. Coreg 12.5 Mg, 1 p.o. b.i.d. CHIEF COMPLAINTS Annual HISTORY OF PRESENT ILLNESS Ms. Contreras is a pleasant 51-year-old female coming in for follow-up office visit. This patient experienced acute anterior myocardial infarction, associated with cardiac arrest in May of 2005. Echocardiogram in July of 2005 had shown a 25% ejection fraction, with extensive anterior wall infarct.She previously had been wearing a LifeVest, secondary to post myocardial infarction arrhythmias. She underwent defibrillator implant in August of 2005 with a Guidant device. DFT tests had been performed last year. The patient overall has been feeling well recently. She does admit to approximately 15 pound weightgain. She states that her exercise was somewhat limited after fracturing her left ankle last year. She also admits to some dietary indiscretion. She has restarted smoking, and smokes approximately eight cigarettes daily. The patient denies chest pain, pressure. She has had no episodes of dyspnea, presyncope, syncope, palpitations or lower extremity edema, except for some swelling at the end of the day of her left ankle, which was the fractured site. PAST HISTORY Past Medical Illnesses: hyperlipidemia Past Cardiac Illnesses: cardiomyopathy(ischemic), coronary artery disease, S/P myocardial infarction- anterior, resuscitatedcardiac arrest outside of hospital Cardiology Procedures-Invasive: PTCA with intracoronary stent placement of proximal LAD May 2005, ICD 09/01/05 Cardiac Cath Results: single vessel CAD with [...] replacement SOCIAL HISTORY Alcohol Use - drinks occasionally; Smoking - used to smoke but quit and on 05/20/05; Diet - low sodium (less than 2 grams) and caffeine use-3-4 per day; Lifestyle - single; Exercise - walking; Seat Belt Use - always; 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 EYES denies diplopia, history of glaucoma or visual field defects. EARS, NOSE, THROAT, MOUTH hoarseness RESPIRATORY cough CARDIOVASCULAR negative for palpitations, chest pain, orthopnea, [...] Pressure: 100/78 Sitting, Left arm, regular cuff Pulse- 64.00/min. Weight- 171.00 lbs. Height- 61.00 Temperature- .00 CONSTITUTIONAL in no acute distress, stocky SKIN warm and dry to touch, mottled appearance of arms bilaterally HEAD normocephalic, atraumatic EYES conjunctivae and lids unremarkable, Pupils equal and round, EOMS intact ENT no pallor or cyanosis, dentition good NECK carotid pulses are full and equal bilaterally, JVP normal, no carotid bruit, no thyromegaly CHEST expiratory wheezes upper lung carrillo, otherwise clear to auscultation, the ICD incision in the leftinfraclavicular area was well-healed CARDIAC no murmurs, gallops or rubs detected ABDOMEN no hepatosplenomegaly, mildly obese PERIPHERAL PULSES pulses full and equal in all extremities, no bruits auscultated. EXTREMITIES & BACK clubbing of fingers, no edema or cyanosis NEUROLOGICAL no gross motor deficits noted, affect appropriate, oriented to time, person and place. IMPRESSION/PLAN: Ms. Contreras is a 51-year-old female coming in for follow-up, with above history. 1. History of coronary artery disease. Stable. No anginal symptoms. Continuing medical management. 2. Of note, after the patient left today I noted that she is not on a statin. I will contact this patient in regards to this, as it appears she previously was on Lipitor, and I do not see why this medication was discontinued. I will contact the patient and determine course of action with this, as certainly this patient has indication to be on lifelong statin therapy, with aggressive LDL goal less than70. 3. Ischemic cardiomyopathy. We will recheck echocardiogram in the near future to reassess ejection fraction status. 4. Blood pressure is stable. 5. Weight gain. I have encouraged increased exercise and dietary changes for weight loss. 6. She was encouraged to discontinue smoking. 7. The patient is in-between primary providers, and needs to reestablish secondary to insurance change. She was encouraged to do so. Thank you for the opportunity to see this pleasant patient in the office today. She will be scheduled for six-month follow-up with Dr. Estrada or recommended to come in sooner should symptoms dictate. TODAYS ORDERS 1. 2D, color flow, doppler 3 months 2. F/U with Ba Estrada MD 6 months JANAY Moyer documented in this encounter Plan of Treatment Upcoming Encounters Date Type Department Care Team (Latest Contact Info) Description 12/22/2024 10:30 AM CDT Hospital Encounter [facility] [address] [phone] Curtis Riggins MD [facility] [address] [place] [address] 12/22/2024 10:30 AM CDT - 12/22/2024 11:00 AM CDT Surgery [facility] [address] [phone] Curtis [facility]iggins [facility] [place] [address] Esophagoscopy, gastroscopy, duodenoscopy (EGD), combined 01/16/2025 Ancillary Procedure [facility] [address] [facility] [address] [phone] Montrell Mckinley MD [address] [address] Scheduled Procedures Name Priority Associated Diagnoses Date/Ti me ESOPHAGOGASTRODUODENOSCOPY Epigastric pain 12/22/2024 10:30 AM CDT documented as of this encounter Visit Diagnoses Not on filedocumented in this encounter Care Teams Multimedia Production Assistant Relationship Specialty Start Date End Date Hal Wilson MD [address] [address] PCP - General 04/19/08 02/22/12 Aracelis Montgomery MD PCP - General 02/23/12 04/27/13 Sarah Isabel MD PCP - General Internal Medicine 04/28/13 10/30/14 Bunny Vera MD PCP - General Internal Medicine 10/31/14 04/21/17 [facility] [address] [place] [address] PCP - General 04/22/17 David Nelson MD [address] [address] [id number] Assigned Heart and Vascular Provider 03/16/20 09/15/20 Berna Dorantes PA-C [address] [place] [address] Assigned Heart and Vascular Provider 09/16/20 08/10/21 David Nelson MD [address] [place] [address] Assigned Heart and Vascular Provider 08/11/21 05/15/24 David Nelson MD [address] [place] [id number] Assigned Heart and Vascular Provider 08/14/24 Therese Harrington PA-C [address] [place] [address] Assigned PCP 11/14/24 documented as of this encounter
--- OUTSIDE RECORDS SUMMARY | 2024-11-28 19:39 | XMS_ITS | Encounter Summary ---
Author Organization [place] Address [address] [facility] [place] [address] Care Team Providers Care Admission Nurse Coordinator Name Role Phone Doctor, Aracelis ANN Primary Care Provider Unavailabl e Dewayne Miranda MD Primary Care Provider [phone] Bunny Vera MD Primary Care Provider [phone] [facility] Primary Care Provider David Nelson MD Unavailable [phone] Berna Dorantes PA-C Unavailable David Nelson MD Unavailable [phone] David Nelson MD Unavailable [phone] Therese Harrington PA-C Unavailable Encounter Details Date Type Department Care Team (Late st Contact Info) Description 04/19/2013 Office Visit-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 [id number] DATE: 04/19/2013 KIMBERLEY CONTRERAS DATE OF : 1955 AGE: [age] years old Referring Physician: DEWAYNE MIRANDA Referring Clinic: [facility] CURRENT DIAGNOSES 1. AICD in in situ - BS Teligen, V45.02 2. - Hypertension, 401.1 3. - CAD, 414.00 4. - Hyperlipidemia, 272.4 5. [place]-Acute Anterior, 410.11 6. - Congestive Heart Failure, 428.0 7. - Cardiomyopathy Ischemic PHASE 3, 414.8 ALLERGIES NKA MEDICATIONS (prior to changes made today) 1. Aspirin 81 mg Tablet, 1 p.o. daily 2. carvedilol 12.5 mg tablet, 1 p.o. twice daily 3. eplerenone 25 mg tablet, 1 p.o. daily 4. losartan 25 mg tablet, 1 p.o. daily 5. Nitroglycerin 0.4 mg Tablet, Sublingual, Take as Directed 6. pantoprazole 40 mg tablet,delayed release (DR/EC), 1 p.o. daily 7. simvastatin 20 mg tablet, one tablet nightly CHIEF COMPLAINTS Hypertension HISTORY OF PRESENT ILLNESS Thank you for allowing me to participate in the care of this very delightful patient. As you know, Kimberley is a 57-year-old female with a history of premature coronary disease status post acute cardiac arrest in the setting of an ST elevation anterior myocardial infarction. She had a prolonged hospitalization with complications of cardiogenic shock. Her LV function failed to improve with ejection fraction less than 20%, therefore, an ICD was implanted. I last saw her about a year ago. In Februaryof last year she was hospitalized for an episode of chest discomfort, which was somewhat different from her previous myocardial infarction and it was felt due to her acid reflux disease. She has beenon a proton pump inhibitor ever since with resolution of her symptoms. She did undergo a stress test at that time, which showed a large fixed anterior/intraseptal/apical defect consistent with a transmural infarct without significant ischemia. Ejection fraction was estimated to be about 37%. The pat jacobo continues to smoke cigarettes. She has tried to quit in the past and currently she is not motivated at this time. Her simvastatin was discontinued at the last hospitalization because of her insurance. The patient used to have elevated transaminase, but the last check was only in the 50s. The patient otherwise denies any chest pain or chest discomfort, orthopnea or PND. Her device was checkedtoday showing no evidence of any ventricular tachyarrhythmias. EXAMINATION: In general the patient appears friendly and healthy in no acute distress. Blood pressure is 110/60, heart rate 68. Lungs were clear, but diminished breath sounds. Cardiovascular examination: Normal S1 and S2, it was regular without any murmurs. PAST HISTORY Past Medical Illnesses: hyperlipidemia, HTN, smokes Past Cardiac Illnesses: cardiomyopathy(ischemic), coronary artery disease, S/P myocardial infarction- anterior, resuscitatedcardiac arrest outside of hospital 2004 Cardiac and Vascular Surgeries: ICD insertion 2065, generator change Oct 2010 Cardiac/Vasc Procedures-Invasive: PTCA with intracoronary stent placement of proximal LAD May 2005, ICD 09/01/05 Cardiology Procedures-NonInvasive: echocardiogram 04/28, 07/28, 03/31, myocardial perfusion (Nuc) Feb 2012 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, EF 5-10%, cypher stent placed in LAD PMHx Echo Results: Akinesis of the mid and distal anterior apical mid and distal septal coley, distal inferior wall hypokinetic, trace pericardial effusion, left-sided mod pleural effusion, 03/31 no significant change Left Ventricular Ejection Fraction: EF 30-35%, 25% by echo 07/28, 03/31 20-25% per echo, EF 37% by nuc 02/2012 LVEF of 37% documented via on 02/24/2012 PHYSICAL EXAMINATION VITAL SIGNS: Blood Pressure: 110/60Sitting, Left arm, large cuff Pulse- 68.00/min. Weight- 174.80 lbs. Height- 61 BMI Measurement: 33 CONSTITUTIONAL well developed, well nourished, in no acute distress SKIN palmar erythema, spider angiomas HEAD atraumatic EYES Pupils equal and round ENT speech normal NECK no JVD CHEST clear to auscultation CARDIAC normal 1st and 2nd heart sounds without murmur or gallop EXTREMITIES & BACK no edema PSYCHIATRIC appropriate NEUROLOGICAL moves extremities equally MEDICATIONS UPDATED/STARTED TODAY: simvastatin 20 mg tablet, one tablet nightly, #90 (Ninety) MEDICATIONS REFILLED/STOPPED TODAY: Simvastatin 20 Mg Tablet 1 p.o. qHS #30 (Thirty) Patient Terminated IMPRESSIONS/PLAN IMPRESSION: 1. CAD, status post stenting of the LAD in the past, stable. 2. History of cardiac arrest, no evidence of ventricular tachyarrhythmias. 3. Hyperlipidemia, not on statin currently. 4. Hypertension. 5. Tobacco abuse. RECOMMENDATIONS: The patient is doing well from a cardiac perspective. I will have her restart on her simvastatin at 20 mg by mouth at bedtime and have her recheck her fasting lipid profile along ALTin four to six weeks. I would like to obtain an echocardiogram to reassess her LV function as it has been six years since the last echocardiogram. If ejection fraction improved her prognosis overall will also improve as well. I encouraged the patient to consider stopping smoking, but the patient isnot motivated to quit at this time. For convenience and the fact that the patient does not have anyactive cardiac rhythm issues I would like her to see Myran Phipps, who has been the patient in the past in one year and after that see one of our cardiologists down in the [place] area for convenience. TODAYS ORDERS 1. 2D, color flow, doppler Today 2. F/U with Myrna Phipps, MSN, OPERATING ENGINEER 1 year 3. Lipid profile/ALT 1 month in [place] Montrell Mckinley M.D. documented in this encounter Plan of Treatment Upcoming Encounters Date Type Department Care Team (Latest Contact Info) Description 12/22/2024 10:30 AM CDT Hospital Encounter [facility] Endoscopy [address] [phone] Curtis Riggins MD [facility] [address] [id number] 12/22/2024 10:30 AM CDT - 12/22/2024 11:00 AM CDT Surgery [facility] Endoscopy [address] [id number] Curtis Riggins MD [facility] [place] [id number] Esophagoscopy, gastroscopy, duodenoscopy (EGD), combined 01/16/2025 Ancillary Procedure [facility] [address] [facility] [address] [phone] Montrell Mckinley MD [address] [place] [address] Scheduled Procedures Name Priority Associated Diagnoses Date/Ti me ESOPHAGOGASTRODUODENOSCOPY Epigastric pain 12/22/2024 10:30 AM CDT documented as of this encounter Visit Diagnoses Not on filedocumented in this encounter Care Teams Admission Nurse Coordinator Relationship Specialty Start Date End Date Aracelis Montgomery MD PCP - General 10/1/12 12/4/13 Dewayne Miranda MD PCP - General Internal Medicine 04/28/13 10/30/14 Bunny Vera MD PCP - General Internal Medicine 10/31/14 04/21/[address] [id number] PCP - General 04/22/17 David Nelson MD [address] [place] [address] Assigned Heart and Vascular Provider 03/16/20 09/15/20 Berna Dorantes PA-C [address] [place] [address] Assigned Heart and Vascular Provider 09/16/20 08/10/21 David Nelson MD [address] [place] [address] Assigned Heart and Vascular Provider 08/11/21 05/15/24 David Nelson MD [address] [place] [address] Assigned Heart and Vascular Provider 08/14/24 Therese Harrington PA-C [address] [place] [address] Assigned PCP 11/14/24 documented as of this encounter
--- OUTSIDE RECORDS SUMMARY | 2024-11-28 19:39 | XMS_ITS | Encounter Summary ---
Author Organization [place] Address [facility] [place] [address] Care Team Providers Care User Interface Developer Name Role Phone Hal Wilson MD Primary Care Provider [phone] Aracelis Montgomery MD Primary Care Provider Unavailabl Sarah Isabel MD Primary Care Provider + [phone] Bunny Vera MD Primary Care Provider [phone] [facility] Primary Care Provider David Nelson MD Unavailable [phone] Berna Dorantes-C Unavailable David Nelson MD Unavailable [phone] David Nelson MD Unavailable [phone] Therese Harrington-C Unavailable Encounter Details Date Type Department Care Team (Late st Contact Info) Description 07/07/2007 Office Visit-[facility] [place] [address] [facility] [address] [place] [phone] Jose Alejandro Gonzalez MD XXX XXX [address] [facility] [address] [place] [address] Social History Tobacco Use Types Packs/Day Years Used Date Smoking Tobacco: Every Day Comments:less than 1/2 ppd Alcohol Use Standard Drinks/Week Comments Not Asked 0 (1 standard drink = 0.6 oz pur e alcohol) Comments No Sex and Gender Information Value Date Recorded Sex Assigned at Not on file 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 DATE: 07/07/2007 KIMBERLEY CONTRERAS DATE OF : 1955 AGE: [age] years old Referring Physician: GLEN AGUAYO CURRENT DIAGNOSES 1. ICD-[id number], V45.02 2. [place]-Acute Anterior, 410.11 3. - Cardiac Arrest, 427.5 4. - Hyperlipidemia, 272.4 5. - Congestive Heart Failure, 428.0 6. - Cardiomyopathy Ischemic PHASE 3, 414.8 ALLERGIES NKA MEDICATIONS (prior to changes made today) 1. Aspirin 81 mg, 1 p.o. q.d. 2. Chantix 0.5mg, Take as Directed 3. Nitroglycerin 0.4 mg, Take as Directed 4. Diovan 80 Mg, 1 p.o. q.d. 5. Inspra 25 Mg, 1 p.o. q.d. 6. Coreg 12.5 Mg, 1 p.o. b.i.d. 7. Simvastatin 40 mg, 1 p.o. q.d. CHIEF COMPLAINTS ischemic cardiomyopathyt HISTORY OF PRESENT ILLNESS The patient is a 52-year-old female who presented several years ago with an out of hospital cardiacarrest with a large anterior myocardial infarction. She did undergo stenting of the left anterior descending artery and has a large wall motion abnormality but that did not improve to any significantdegree. She subsequently underwent AICD placement and has been followed by Dr. Estrada as well as JANAY Moyer, in our group. The patient comes for followup today. She states that she feels well. She unfortunately has continued to smoke. She has not sought a primary care yet. In the past she was given a prescription for Chantix but did not take it. She apparently has not had any lipid levels drawn recently. Symptomatically, she is doing well without any chest pain, chest pressure, or chest heaviness. She denies any shortness of breath, PND, or orthopnea. There has been no firing of her AICD by history or by interrogation. PAST HISTORY Past Medical Illnesses: hyperlipidemia Past [...] by echo 07/28, 03/31 20-25% per echo PMHx Echo Results: EF 25-30%, Akinesis of the mid and distal anterior apical mid and distal septal coley, distal inferior wall hypokinetic, trace pericardial effusion, left-sided mod pleural effusion, 03/31 no significant change FAMILY HISTORY: Father - Age 87, ; Mother - alive and well; Brother 1 - alive and well; Brother 2 - alive and well; Brother 3 - alive and well; Sister 1 - alive and well; Sister 2 - alive and well; SOCIAL HISTORY Alcohol Use - drinks occasionally; Smoking - smokes cigarettes, and 6-8 per day; Diet - low sodium (less than 2 grams) and caffeine use-3-4 per day; Lifestyle - single; Exercise - walking; Seat Belt Use - always; 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 EYES denies diplopia, history of glaucoma or visual field defects. EARS, NOSE, THROAT, MOUTH denies any hearing loss, epistaxis, hoarseness or difficulty speaking. RESPIRATORY cough CARDIOVASCULAR negative for palpitations, chest [...] lymphadenopathy. PHYSICAL EXAMINATION VITAL SIGNS: Blood Pressure: 100/62 Sitting, Left arm, large cuff Pulse- 66.00/min. Weight- 179.60 lbs. Height- 61.00 Temperature- .00 CONSTITUTIONAL obese, NAD, alert and oriented, ambulates youssef without difficulty SKIN warm and dry to touch HEAD atraumatic EYES Pupils equal and round, EOMS intact ENT tongue midline NECK supple without bruit CHEST clear CARDIAC RRR without murmur/lift/trhill ABDOMEN obese without tenderness PERIPHERAL PULSES good ankle EXTREMITIES & BACK no edema PSYCHIATRIC appropriate NEUROLOGICAL moves extremities equally MEDICATIONS UPDATED/STARTED TODAY: Chantix 0.5mg, Take as Directed, DIRECTED IMPRESSIONS/PLAN 1. The patient has an ischemic cardiomyopathy but is symptomatically class I-II without evidence ofcongestive heart failure by exam or symptoms. Plans are continued medical treatment. 2. I did review her medications and she is on appropriate ARB, beta benson therapy with Coreg, as well as Inspra because of her LV dysfunction. 3. I have ordered lipid levels to be drawn as she has not had this done recently. Currently she is on simvastatin at 40 mg q.d. Adjustment of her simvastatin will be done according to her lipid levels after they return. 4. I strongly encouraged the patient to stop smoking. I have given her a prescription for Chantix starter dose. 5. Although she is not on the maximumdose of Coreg, her blood pressure is low and therefore I will leave her at the current dosing. TODAYS ORDERS 1. F/U with Ba Estrada MD 1 year 2. F/U with ELBA Moyer, PA-C 3 months 3. Lipid profile/ALT 1 week Jose Alejandro Gonzalez M.D. documented in this encounter Plan of Treatment Upcoming Encounters Date Type Department Care Team (Latest Contact Info) Description 12/22/2024 10:30 AM CDT Hospital Encounter [facility] Endoscopy [address] [phone] Curtis Riggins MD [facility] [id number] 12/22/2024 10:30 AM CDT - 12/22/2024 11:00 AM CDT Surgery [facility] Endoscopy [address] [phone] Curtis Riggins MD [facility] [place] [address] [id number] Esophagoscopy, gastroscopy, duodenoscopy (EGD), combined 01/16/2025 Ancillary Procedure [facility] Care [address] [facility] [address] [place] [phone] Montrell Mckinley MD [address] [place] [address] Scheduled Procedures Name Priority Associated Diagnoses Date/Ti me ESOPHAGOGASTRODUODENOSCOPY Epigastric pain 12/22/2024 10:30 AM CDT documented as of this encounter Visit Diagnoses Not on filedocumented in this encounter Care Teams User Interface Developer Relationship Specialty Start Date End Date Hal Wilson MD [address] [address] PCP - General 04/19/08 02/22/12 Aracelis Montgomery MD PCP - General 02/23/12 04/27/13 Sarah Isabel MD PCP - General Internal Medicine 04/28/13 10/30/14 Bunny Vera MD PCP - General Internal Medicine 10/31/14 04/21/[address] [address] PCP - General 04/22/17 David Nelson MD [address] [facility] [address] [place] [address] Assigned Heart and Vascular Provider 03/16/20 09/15/20 Berna Dorantes, PA-C [address] [place] [address] Assigned Heart and Vascular Provider 09/16/20 08/10/21 David Nelson MD [address] [address] Assigned Heart and Vascular Provider 08/11/21 05/15/24 David Nelson MD [address] [id number] Assigned Heart and Vascular Provider 08/14/24 Therese Harrington PA-C [address] [place] [address] Assigned PCP 11/14/24 documented as of this encounter
--- OUTSIDE RECORDS SUMMARY | 2024-11-28 19:39 | XMS_ITS | Encounter Summary ---
Author Organization [place] Address [address] [place] [address] Care Team Providers Care Associate Project Manager Name Role Phone Hal Wilson MD Primary Care Provider [phone] Aracelis Montgomery MD Primary Care Provider [facility] Sarah Hdz MD Primary Care Provider + [phone] Bunny Vera MD Primary Care Provider [phone] [facility] Primary Care Provider David Nelson MD Unavailable [phone] Berna Dorantes-C Unavailable David Nelson MD Unavailable [phone] David Nelson MD Unavailable [phone] Therese Harrington-C Unavailable Encounter Details Date Type Department Care Team (Late st Contact Info) Description 12/11/2005 Office Visit-[facility] Clinic [address] [place] [address] Unknown, MD Valentina Social History Tobacco Use Types Packs/Day Years Used Date Smoking Tobacco: Never Assessed Comments Unknown Sex and Gender Information Value Date Recorded Sex Assigned at Not on file 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 ICD-[id number], V45.02 2. [place]-Acute Anterior, 410.11 3. - Cardiac Arrest, 427.5 4. - Hyperlipidemia, 272.4 5. - Congestive Heart Failure, 428.0 6. - Cardiomyopathy Ischemic PHASE 3, 414.8 ALLERGIES NKA MEDICATIONS (including any changes made today) 1. Nitroglycerin 0.4 mg, Take as Directed 2. Lipitor 20 mg, 1 p.o. q.d. 3. Inspra 25 mg, 1 p.o. q.d. 4. Coreg 12.5 Mg, 1 p.o. b.i.d. 5. Altace 5 Mg, 1 p.o. q.d. 6. Plavix 75 Mg, 1 p.o. q.d. 7. Omeprazole 20mg, 1 p.o. b.i.d. 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 EYES denies diplopia, history of glaucoma or visual field defects. EARS, NOSE, THROAT, MOUTH hoarseness RESPIRATORY cough CARDIOVASCULAR dizziness ABDOMINAL nausea GENITOURINARY-FEMALE post menopausal without hormonal replacement MUSCULOSKELETAL fractured left ankle NEUROLOGICAL denies any history of recurrent headaches, strokes, TIA, or seizure disorder. PSYCHIATRIC denies any history of depression, substance abuse or change in cognitive functions. ENDOCRINE hyperlipidemia HEMATOLOGICAL/IMMUNOLOGIC denies any food allergies, seasonal allergies, bleeding disorders or lymphadenopathy. PHYSICAL EXAMINATION VITAL SIGNS: Blood Pressure: 90/60 Sitting, Left arm, regular cuff Pulse- 82.00/min. Weight- 155.00 lbs. Height- 61.00 Temperature- .00 CONSTITUTIONAL in no acute distress, stocky SKIN warm and dry to touch, no apparent skin lesions HEAD normocephalic, atraumatic EYES conjunctivae and lids [...] extremities, no bruits auscultated. EXTREMITIES & BACK left ankle in support boot, no edema right lower extremity NEUROLOGICAL no gross motor deficits noted, affect appropriate, oriented to time, person and place. MEDICATIONS UPDATED TODAY: Omeprazole 20mg, 1 p.o. b.i.d., DIRECTED MEDICATION STOPPED TODAY: Aspirin 81 mg and Combivent 103 mcg-18 mcg/inh IMPRESSIONS/PLAN (Enter Doctor Dictated Impressions Here) JANAY Burnett documented in this encounter Plan of Treatment Upcoming Encounters Date Type Department Care Team (Latest Contact Info) Description 12/22/2024 10:30 AM CDT Hospital Encounter [facility] Endoscopy [address] [phone] Curtis [facility]iggins [facility] [place] [id number] 12/22/2024 10:30 AM CDT - 12/22/2024 11:00 AM CDT Surgery [facility] Endoscopy [address] [phone] Curtis Riggins MD [facility] [place] [address] [address] [place] [id number] Esophagoscopy, gastroscopy, duodenoscopy (EGD), combined 01/16/[address] [facility] Care [address] [facility] [address] [place] [phone] Montrell Mckinley MD [address] [place] [address] Scheduled Procedures Name Priority Associated Diagnoses Date/Ti me ESOPHAGOGASTRODUODENOSCOPY Epigastric pain 12/22/2024 10:30 AM CDT documented as of this encounter Visit Diagnoses Not on filedocumented in this encounter Care Teams Associate Project Manager Relationship Specialty Start Date End Date Hal Wilson MD [address] [address] PCP - General 04/19/08 02/22/12 Aracelis Montgomery MD PCP - General 02/23/12 04/27/13 Sarah Isabel MD PCP - General Internal Medicine 04/28/13 10/30/14 Bunny Vera MD PCP - General Internal Medicine 10/31/14 04/21/[address] [address] PCP - General 04/22/17 David Nelson MD [address] [place] [address] Assigned Heart and Vascular Provider 03/16/20 09/15/20 Berna Dorantes PA-C [address] [place] [address] Assigned Heart and Vascular Provider 09/16/20 08/10/21 David Nelson MD [address] [place] [address] Assigned Heart and Vascular Provider 08/11/21 05/15/24 David Nelson MD [address] [place] [address] Assigned Heart and Vascular Provider 08/14/24 Therese Harrington PA-C [address] [place] [address] Assigned PCP 11/14/24 documented as of this encounter
--- OUTSIDE RECORDS SUMMARY | 2024-11-28 19:39 | XMS_ITS | Encounter Summary ---
Author Organization [place] Address [id number] [place] [address] Care Team Providers Care Mining Plant Operator Name Role Phone Ines Wilson MD Primary Care Provider [phone] Aracelis Montgomery MD Primary Care Provider Unavailabl Sarah Isabel MD Primary Care Provider + [phone] Bunny Vera MD Primary Care Provider [phone] [facility] Primary Care Provider David Nelson MD Unavailable [phone] Berna Dorantes-C Unavailable David Nelson MD Unavailable [phone] David Nelson MD Unavailable [phone] Therese Harrington-C Unavailable Encounter Details Date Type Department Care Team (Late st Contact Info) Description 07/26/2009 Office Visit-[facility] [place] [address] [facility] [address] [place] [phone] Jose Alejandro Gonzalez MD XXX XXX [address] [facility] [address] [place] [address] Social History Tobacco Use Types Packs/Day Years Used Date Smoking Tobacco: Every Day Comments:less than 1/2 ppd Alcohol Use Standard Drinks/Week Comments Not Asked 0 (1 standard drink = 0.6 oz pur e alcohol) Comments No Sex and Gender Information Value Date Recorded Sex Assigned at Not on file 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 DATE: 07/26/2009 KIMBERLEY CONTRERAS DATE OF : 1955 AGE: [age] years old Referring Physician: INES WILSON Referring Clinic: [facility] CURRENT DIAGNOSES 1. ICD-[id number], V45.02 2. Hepatomegaly, 789.1 3. MT-Acute Anterior, 410.11 4. - Cardiac Arrest, 427.5 5. - Hyperlipidemia, 272.4 6. - Congestive Heart Failure, 428.0 7. - Cardiomyopathy Ischemic PHASE 3, 414.8 ALLERGIES NKA MEDICATIONS (prior to changes made today) 1. Coreg 12.5 Mg Tablet, 1 p.o. twice daily 2. Diovan 80 Mg Tablet, 1 p.o. daily 3. Inspra 25 Mg Tablet, 1 p.o. daily 4. Aspirin 81 mg Tablet, 1 p.o. daily 5. Nitroglycerin 0.4 mg Tablet, Sublingual, Take as Directed CHIEF COMPLAINTS CAD HISTORY OF PRESENT ILLNESS Kimberley Contreras was seen in our office today for followup of her ischemic cardiomyopathy. As you probably remember, the patient is a 54-year-old female who suffered a large anterior myocardial infarction approximately four years ago. At the time of angiography she was found to have single-vessel coronary artery disease. She had a protracted course in the hospital but was able to recover. She did have severe LV dysfunction and does have an AICD placement. The patient had previously been seen by Dr. Ky Estrada in our group. After his the patient has been followed by me. Since her last visit she continues to feel well. She denies any chest pain, chest pressure, or chest heaviness. There has been no PND or orthopnea. She has had no firing of her AICD. She apparently was on Altace in the past but was switched to an ARB for what sounds like a cough. She otherwise has been tolerating her medications. Physical exam is as listed below. PHYSICAL EXAMINATION VITAL SIGNS: Blood Pressure: 92/60Sitting, Right arm, regular cuff Pulse- 66.00/min. Weight- 170.00 lbs. Height- 61.00 Temperature- .00 CONSTITUTIONAL ambulating halls without difiiculty SKIN palmar erythema, spider angiomas HEAD atraumatic EYES EOMI, pupils round and equal ENT speech normal NECK no thyromegaly, carotid pulses are full and equal bilaterally without bruits CHEST supple without bruit CARDIAC RRR without murmur/lift/trhill ABDOMEN no guarding PERIPHERAL PULSES ankle 2- bilateral EXTREMITIES & BACK no edema PSYCHIATRIC appropriate NEUROLOGICAL moves extremities equally MEDICATIONS UPDATED/STARTED TODAY: Aspirin 81 mg Tablet, 1 p.o. daily Coreg 12.5 Mg Tablet, 1 p.o. twice daily, #0 Diovan 80 Mg Tablet, 1 p.o. daily, #30 Inspra 25 Mg Tablet, 1 p.o. daily, #0 MEDICATIONS REFILLED/STOPPED TODAY: Aspirin 81 mg Tablet 1 p.o. q.d. 0 Directions Changed-No Abbrvs, Simvastatin 40 mg Tablet NONE SINCE 2007 #30 Patient Terminated, Aspirin 81 Mg Tablet 1 p.o. daily 0 Substitution, Coreg 12.5 Mg Tablet 1 p.o. twice daily #0 Refill, Diovan 80 Mg Tablet 1 p.o. daily #0 Refill, Inspra 25 Mg Tablet 1 p.o. daily #0 Refill, Inspra 25 Mg Tablet 1 p.o. q.d. #30 Directions Changed-No Abbrvs, Diovan 80 Mg Tablet 1 p.o. q.d. #30 Directions Changed-No Abbrvs and Coreg 12.5 Mg Tablet 1 p.o. b.i.d. #60 Directions Changed-No Abbrvs IMPRESSIONS/PLAN 1. Remote anterior myocardial infarction with residual LV dysfunction requiring AICD placement. 2. Clinically she is doing well with no symptoms of congestive heart failure or angina. 3. I would continue with the Coreg she is taking. She is on Diovan at this time and I suggested we switch her to candesartan as it may have some better indication for LV dysfunction. The patient states that she has been tolerating the Diovan and wishes to remain on Diovan. 4. She has not been taking an aspirin a day and I have asked her to take an aspirin 81 mg q.d. 5. As noted in the past, she is not on any statins. I did advise her that she should have her lipids drawn and treat it accordingly. Basically, the patient was in the office today to get refills and she does not want to have her blood work done today as she is not fasting. She states that she will contact you to have this done [facility] of the [facility]. 6. The patient is hypotensive today but is tolerating this well. As long as she is tolerating it, we will continue with the current medications. 7. The patient will be seen back in approximately one year's time. If she should have problems prior to that, earlier followup could be arranged. As mentioned above, the patient is supposed to contact you to get her lipids drawn. I would aim for an LDL cholesterol of less than 70 if at all possible. TODAYS ORDERS 1. Return Visit 1 year Jose Alejandro Gonzalez M.D. documented in this encounter Plan of Treatment Upcoming Encounters Date Type Department Care Team (Latest Contact Info) Description 12/22/2024 10:30 AM CDT Hospital Encounter [facility] [address] [phone] Curtis Riggins MD [facility] [address] [place] [address] 12/22/2024 10:30 AM CDT - 12/22/2024 11:00 AM CDT Surgery [facility] [address] [id number] Curtis [facility]iggins [facility] [place] [address] Esophagoscopy, gastroscopy, duodenoscopy (EGD), combined 01/16/2025 Ancillary Procedure [facility] [address] [facility] [address] [place] [phone] Montrell Mckinley MD [address] [place] [address] Scheduled Procedures Name Priority Associated Diagnoses Date/Ti me ESOPHAGOGASTRODUODENOSCOPY Epigastric pain 12/22/2024 10:30 AM CDT documented as of this encounter Visit Diagnoses Not on filedocumented in this encounter Care Teams Mining Plant Operator Relationship Specialty Start Date End Date Ines Wilson MD [address] [address] PCP - General 04/19/08 02/22/12 Aracelis Montgomery MD PCP - General 02/23/12 04/27/13 Sarah Isabel MD PCP - General Internal Medicine 04/28/13 10/30/14 Bunny Vera MD PCP - General Internal Medicine 10/31/14 04/21/17 [facility] [address] [place] [address] PCP - General 04/22/17 David Nelson MD [address] [place] [address] Assigned Heart and Vascular Provider 03/16/20 09/15/20 Berna Dorantes PA-C [address] [place] [address] Assigned Heart and Vascular Provider 09/16/20 08/10/21 David Nelson MD [address] [place] [address] Assigned Heart and Vascular Provider 08/11/21 05/15/24 David Nelson MD [address] [place] [address] Assigned Heart and Vascular Provider 08/14/24 Therese Harrington PA-C [address] [place] [address] Assigned PCP 11/14/24 documented as of this encounter
--- OUTSIDE RECORDS SUMMARY | 2024-11-28 19:40 | XMS_ITS | Clinical Summary ---
Author Organization [facility] Address [address] [place] [address] Care Team Providers Care Drawbench Operator Name Role Phone Unavailable Primary Care Provider Unavailabl e Source Comments You are receiving this document as you are listed as the primary care provider,follow-up provider, or the patient has been referred to you for consultation.This is in compliance with the Medicare and[facility] Cent[facility] EHR Incentive Program,which states Providers who transition their patient to another setting of careor provider of care or refers their patient to another provider of care shouldprovide summary care record for each transition of care or referral. [facility] All[facility] No known active allergies Medications eplerenone (AKA INSPRA) 25 MG tablet Take 1 tablet by mouth daily (every 24 hours). 90 3 6 Active carvedilol (AKA COREG) 12.5 MG tablet Take 1 Tablet (12.5 mg) by mouth two times a day. 180 3 6 Active losartan (AKA COZAAR) 25 MG tablet Take 1 Tablet (25 mg) by mouth daily. 90 3 0 Active HYDROcodone-zhane taminophen (VICODIN) 5-500 MG tablet Take 1-2 tablets by mouth every 6 hours as needed. LW Comment:nighttim e use only 20 0 Active Additional Information Patient not taking.Reported on 09/19/2024 unknown medication Indications: PN: 0 Active simvastatin (ZOCOR) 20 MG tablet Take 1 Tablet (20 mg) by mouth daily at bedtime. 5 Active Active Problems Problem Noted Date Diagnosed Date Coronary atherosclerosis 09/19/2024 Nuclear senile cataract of both eyes 12/25/2021 Presbyopia 12/25/2021 Hyperopia of both eyes 12/25/2021 CHF (congestive heart failure) 10/02/2020 Hypertension 10/02/2020 Ischemic cardiomyopathy 10/02/2020 Overview (09/19/2024): Phase 3 04-28-13 ECHO EF 20-25% GIB (gastrointestinal bleeding) 03/02/2018 Hyperlipidemia LDL goal <70 10/10/2012 Acute myocardial infarction 08/27/2006 Overview (09/19/2024): PR in 2004 Tobacco use disorder 08/27/2006 Encounters Date Type Department Care Team Description 09/19/2024 8:10 AM CDT Ancillary Procedure [facility] [address] [place] [address] Bentley Espinal, LUPILLO, MAINTENANCE SUPERVISOR MECHANICAL Cough, unspecified type 09/19/2024 8:00 AM CDT Office Visit [facility] [address] [place] [address] Bentley Espinal, OBSTETRICS GYNECOLOGY PHYSICIAN, MAINTENANCE SUPERVISOR MECHANICAL Cough, unspecified type; SOB (shortness of breath); Pulmonary infiltrate from Last 3 Months Social History Tobacco Use Types Packs/Day Years Used Date Smoking Tobacco: Every Day Cigarettes Tobacco Cessation:Ready to Q uit: Not Asked; Counseling Given: Not Answered Comments Unknown Sex and Gender Information Value Date Recorded Sex Assigned at Not on file Legal Sex Female 10:39 PM CDT Gender Identity Not on file Sexual Orientation Not on file Last Filed Vital Signs Vital Sign Reading Time Taken Comments Blood Pressure 105/72 09/19/2024 8:04 AM CDT Pulse 58 09/19/2024 8:04 AM CDT Temperature 36.4 C (97.6 F) 09/19/2024 8:04 AM CDT Respiratory Rate 18 09/19/2024 8:04 AM CDT Oxygen Saturation 98% 09/19/2024 8:04 AM CDT Inhaled Oxygen Concentration - - Weight - - Height - - Body Mass Index - - Plan of Treatment Health Maintenance Due Date Last Done Comments Colon Cancer Screening Plan Due 1955 Hep C Screening (Preventive Services) 1955 Medicare Welcome Visit 1955 Cholesterol 2001 Zoster/Shingles Vaccine (1 of 2) 2006 Pneumococcal Vaccine 50+ Yrs (2 of 2 - PCV) 04/23/2007 04/23/2006 Mammogram 04/06/2013 04/06/2012 RSV Vaccine (1 - Risk 60-74 years 1-dose series) 2016 DTaP/Tdap/Td Vaccine (2 - Tdap) 06/08/2016 7 Dexa 2021 COVID-19 Vaccine (1 - 2023-2 5 season) 2024 Influenza Vaccine (#1) 2025 04/19/2008 HepA Vaccine Aged Out No longer eligi ble based on patient's age to complete this topic HepB Vaccine Aged Out No longer eligi ble based on patient's age to complete this topic Hib Vaccine Aged Out No longer eligi ble based on patient's age to complete this topic IPV (Polio) Vaccine Aged Out No longe r eligible based on patient's age to complete this topic MCV4 Vaccine Aged Out No longer eligi ble based on patient's age to complete this topic Meningococcal B Vaccine Aged Out No l onger eligible based on patient's age to complete this topic Procedures Procedure Name Priority Date/Time Associated Diagnosis Comments XR CHEST 2 VIEWS STAT 09/19/2024 8:24 AM CDT Cough, unspecified type ECG 12 LEAD OUTPATIENT STAT 09/19/2024 8:11 AM CDT SOB (shortness of breath) from Last 3 Months Results * XR Chest 2 Views (09/19/2024 8:24 AM CDT) Anatomical Region Laterality Modality Chest, Lung Digital Radiogra phy 09/19/2024 8:08 AM CDT Narrative 09/19/2024 8:28 AM CDT COMPARISON: 01/16/2006 FINDINGS: 2 views. Left chest wall cardiac device with single lead. Mild cardiomegaly. No pneumothorax or pleural effusion. Mild bibasilar streaky opacities, differential considerations include mild interstitial edema, infiltrate, and/or atelectasis. No acute bony abnormality. Procedure Note Lizzie Schultz MD - 09/19/2024 COMPARISON: 01/16/2006 FINDINGS: 2 views. Left chest wall cardiac device with single lead. Mildcardiomegaly. No pneumothorax or pleural effusion. Mild bibasilar streakyopacities, differential considerations include mild interstitial edema,infiltrate, and/or atelectasis. No acute bony abnormality. us Bentley Espinal APRN, MAINTENANCE SUPERVISOR MECHANICAL RAD GD Final Re sult * ECG 12-LEAD ROUTINE (Non Lab to perform-Today)-STAT (09/19/2024 8:11 AM CDT) Ventricular Rate 53 BPM MUSE GHP Atrial Rate 53 BPM MUSE GHP P-R Interval 224 ms MUSE GHP QRS Duration 166 ms MUSE GHP QT 508 ms MUSE GHP QTC 476 ms MUSE GHP P [place] 60 degrees MUSE GHP R [place] -61 degrees MUSE GHP T [place] 150 degrees MUSE GHP 09/19/2024 8:11 AM CDT Narrative MUSE GHP - 09/19/2024 8:33 AM CDT Sinus bradycardia with 1st degree A-V block Left axis deviation Non-specific intra-ventricular conduction block Nonspecific ST and T wave abnormality Abnormal ECG No previous ECGs available Confirmed by Nico De Leon ([id number]) on 09/19/2024 8:33:16 AM Procedure Note Nico De Leon MD - 09/19/2024 Sinus bradycardia with 1st degree A-V block Left axis deviation Non-specific intra-ventricular conduction block Nonspecific ST and T wave abnormality Abnormal ECG No previous ECGs available Confirmed by Nico De Leon ([id number]) on 09/19/2024 8:33:16 AM us Bentley Espinal APRN, KATY PN ECG ORDERABLES Final Result MUSE [facility] [address] [place] [address] from Last 3 Months Insurance [facility] MEDICARE ADVANTAGE
--- OUTSIDE RECORDS SUMMARY | 2024-11-28 19:40 | XMS_ITS | Encounter Summary ---
Author Organization [place] Address [address] [facility] [place] [address] Care Team Providers Care Tax Technician Name Role Phone [facility], [facility] Primary Care Provider David Nelson MD Unavailable [phone] Encounter Details Date Type Department Care Team (Late st Contact Info) Description 11/09/2024 Results Follow-Up [facility] [id number] [place] [phone] Therese Harrington PA-C [address] [place] [address] Social History Tobacco Use Types Packs/Day Years Used Date Smoking Tobacco: Some Days Cigarettes 0.5 52.5 Started: 1971 Smokeless Tobacco: Never Comments:09/23/24 have cut lizzy k to about 2 cigarettes a day/ Less [...] Answer Date Recorded Do you have housing? 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 Gender Identity Not on file Sexual Orientation Not on file documented as of this encounter Plan of Treatment Upcoming Encounters Date Type Department Care Team (Latest Contact Info) Description 12/22/2024 10:30 AM CDT Hospital Encounter [facility] Endoscopy [address] [phone] Curtis Riggins MD [facility] [address] [id number] 12/22/2024 10:30 AM CDT - 12/22/2024 11:00 AM CDT Surgery [facility] [address] [id number] GilsonCurtis guadalupe MD [facility] [address] [place] [address] [place] [address] Esophagoscopy, gastroscopy, duodenoscopy (EGD), combined 01/16/2025 Ancillary Procedure [facility] [address] [facility] [place] [phone] Montrell Mckinley MD [address] [place] [address] Scheduled Procedures Name Priority Associated Diagnoses Date/Ti me ESOPHAGOGASTRODUODENOSCOPY Epigastric pain 12/22/2024 10:30 AM CDT documented as of this encounter Visit Diagnoses Not on filedocumented in this encounter Care Teams Tax Technician Relationship Specialty Start Date End Date [facility], [address] [address] PCP - General 04/22/17 David Nelson MD [address] [place] [id number] Assigned Heart and Vascular Provider 08/14/24 documented as of this encounter
--- OUTSIDE RECORDS SUMMARY | 2024-11-28 19:40 | XMS_ITS | Encounter Summary ---
Author Organization [place] Address [address] [facility] [place] [address] Care Team Providers Care Kelp Cutter Name Role Phone Doctor, Aracelis ANN Primary Care Provider Unavailabl e Sarah Isabel MD Primary Care Provider [phone] Bunny Vera MD Primary Care Provider [phone] [facility] Primary Care Provider David Nelson MD Unavailable Berna Dorantes PA-C Unavailable David Nelson MD Unavailable [phone] David Nelson MD Unavailable Therese Harrington PA-C Unavailable Encounter Details Date Type Department Care Team (Late st Contact Info) Description 03/09/2012 Office Visit-[facility] [place] [id number] 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 DATE: 03/09/2012 KIMBERLEY CONTRERAS DATE OF : 1955 AGE: [age] years old Referring Physician: INES DALE Referring Clinic: [facility] CURRENT DIAGNOSES 1. - Cardiomyopathy Ischemic PHASE 3, 414.8 2. AICD in in situ - BS Teligen, V45.02 3. Hepatomegaly, 789.1 4. - Hyperlipidemia, 272.4 5. VA-Acute Anterior, 410.11 6. - Cardiac Arrest, 427.5 7. - Congestive Heart Failure, 428.0 ALLERGIES NKA MEDICATIONS (prior to changes made today) 1. Aspirin 81 mg Tablet, 1 p.o. daily 2. carvedilol 12.5 mg tablet, 1 p.o. twice daily 3. eplerenone 25 mg tablet, 1 p.o. daily 4. losartan 25 mg tablet, 1 p.o. daily 5. Nitroglycerin 0.4 mg Tablet, Sublingual, Take as Directed 6. Protonix 40 mg tablet,delayed release (DR/EC), 1 p.o. daily 7. Simvastatin 20 Mg Tablet, 1 p.o. qHS CHIEF COMPLAINTS HISTORY OF PRESENT ILLNESS Thank you for allowing me to participate in the care of this delightful patient. As you know, Kimberley is a 56-year-old lady with a history of cardiac arrest in the setting of acute anterior myocardialinfarction. She had a protracted hospital course due to cardiogenic shock and was put on oxygen briefly. After revascularization her LV function did improve but was less than 30% and therefore an ICDwas implanted. Fortunately, she has not had any VT or VF over the past several years. Recently she was hospitalized for an episode of sudden onset of chest tightness as if someone was squeezing her heart. Because of her previous episode she did not want to take any chance and therefore came to the ospital. She underwent a stress test which showed no new ischemia. She has a large defect consistent with her prior transmural infarction from the LAD. The ejection fraction was estimated at about 37%. It was felt that her pain was probably due to noncardiac origin. She was given a PPI for acid reflux with improvement in her symptoms. Her device was checked today by me and showed no evidence of ventricular tachyarrhythmia during that episode. The patient otherwise has no concerns at today's visit except for a complaint of gaining weight. She was wondering if any of the medications she is taking could be contributing to it. I reviewed all of them and I told her it is probably unlikely. I told her that unfortunately as we age our metabolism slows down and therefore we can gain weight quite easily. She does admit to eating a lot of frozen ready-made food and therefore has a lot of calories. I encouraged the patient to eat healthier foods and fresh food if possible. On examination, in general the patient appears friendly, healthy, in no acute distress. Blood pressure today was 98/68, heart rate 62. Lungs were clear. Cardiovascular exam: Normal S1 and s2, no S3 or S4. Rhythm was regular. PAST HISTORY Past Medical Illnesses: hyperlipidemia, HTN, 04/01 elevated LFTs Past Cardiac Illnesses: cardiomyopathy(ischemic), coronary artery disease, S/P myocardial infarction- anterior, resuscitatedcardiac arrest outside of hospital Cardiac and Vascular Surgeries: ICD insertion Oct 2010 Cardiac/Vasc Procedures-Invasive: PTCA with intracoronary [...] 02/24/2012 PHYSICAL EXAMINATION VITAL SIGNS: Blood Pressure: 98/68Sitting, Right arm, regular cuff Pulse- 62.00/min. Weight- 177.00 lbs. Height- 61 BMI Measurement: 33 CONSTITUTIONAL well developed, well nourished, in no acute distress SKIN palmar erythema, spider angiomas HEAD atraumatic EYES Pupils equal and round ENT speech normal NECK no JVD CHEST clear to auscultation CARDIAC normal 1st and 2nd heart sounds without murmur or gallop EXTREMITIES & BACK no edema PSYCHIATRIC appropriate NEUROLOGICAL moves extremities equally MEDICATIONS UPDATED/STARTED TODAY: Protonix 40 mg tablet,delayed release (DR/EC), 1 p.o. daily, #0 (Zero) IMPRESSION/RECOMMENDATIONS: Kimberley is a delightful 56-year-old lady with a history of V fib at restin the setting of acute myocardial infarction. She has an AICD implanted and fortunately so far hasnot had any VT or VF for the past several years. She was hospitalized for an episode of atypical chest discomfort, probably due to GI spasm. I would agree with continuation of PPI. I reassured the patient that none of her medications are contributing to her weight gain. I encouraged the patient to eat a healthier diet and increase her exercise level as she can. The patient will continue to followin the [facility]. I will see her back in one year's time, or sooner should circumstances dictate. TODAYS ORDERS 1. Return Visit 1 year Montrell Mciknley M.D. documented in this encounter Plan of Treatment Upcoming Encounters Date Type Department Care Team (Latest Contact Info) Description 12/22/2024 10:30 AM CDT Hospital Encounter [facility] Endoscopy [address] [phone] Curtis Riggins MD [facility] [place] [address] 12/22/2024 10:30 AM CDT - 12/22/2024 11:00 AM CDT Surgery [facility] Endoscopy [address] [address] Curtis Riggins MD [facility] [place] [address] [address] [address] Esophagoscopy, gastroscopy, duodenoscopy (EGD), combined 01/16/2025 Ancillary Procedure [facility] Heart Care [address] [facility] [address] [place] [address] Montrell Mckinley MD [address] [place] [address] Scheduled Procedures Name Priority Associated Diagnoses Date/Ti me ESOPHAGOGASTRODUODENOSCOPY Epigastric pain 12/22/2024 10:30 AM CDT documented as of this encounter Visit Diagnoses Not on filedocumented in this encounter Care Teams Kelp Cutter Relationship Specialty Start Date End Date Aracelis Montgomery MD PCP - General 02/23/12 04/27/13 Sarah Isabel MD PCP - General Internal Medicine 04/28/13 10/30/14 Bunny Vera MD PCP - General Internal Medicine 10/31/14 04/21/[address] [address] PCP - General 04/22/17 David Nelson MD [address] [place] [address] Assigned Heart and Vascular Provider 03/16/20 09/15/20 Berna Dorantes PA-C [address] [place] [address] Assigned Heart and Vascular Provider 09/16/20 08/10/21 David Nelson MD [address] [place] [address] Assigned Heart and Vascular Provider 08/11/21 05/15/24 David Nelson MD [address] [place] [address] Assigned Heart and Vascular Provider 08/14/24 Therese Harrington PA-C [address] [place] [address] Assigned PCP 11/14/24 documented as of this encounter
--- OUTSIDE RECORDS SUMMARY | 2024-11-28 19:40 | XMS_ITS | Encounter Summary ---
Author Organization [place] Address [facility] [address] Care Team Providers Care Roller Shop Supervisor Name Role Phone Ines Wilson MD Primary Care Provider [phone] Aracelis Montgomery MD Primary Care Provider Unavailabl Sarah Isabel MD Primary Care Provider + [phone] Bunny Vera MD Primary Care Provider [phone] [facility] Primary Care Provider David Nelson MD Unavailable [phone] Berna Dorantes-C Unavailable David Nelson MD Unavailable [phone] David Nelson MD Unavailable [phone] Therese Harrington-C Unavailable Encounter Details Date Type Department Care Team (Late st Contact Info) Description 08/15/2010 Office Visit-[facility] Heart Clinic [place] [address] [facility] [address] [place] [address] Montrell Mckinley MD [address] [facility] [address] [place] [id number] Social History Tobacco Use Types Packs/Day Years Used Date Smoking Tobacco: Every Day Comments:less than 1/2 ppd Alcohol Use Standard Drinks/Week Comments Yes 0 (1 standard drink = 0.6 oz pur e alcohol) social Comments No Sex and Gender Information Value Date Recorded Sex Assigned at Not on file 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 DATE: 08/15/2010 KIMBERLEY CONTRERAS DATE OF : 1955 AGE: [age] years old Referring Physician: INES WILSON Referring Clinic: [facility] CURRENT DIAGNOSES 1. - Cardiac Arrest, 427.5 2. - Hyperlipidemia, 272.4 3. ICD-[id number], V45.02 4. Hepatomegaly, 789.1 5. MO-Acute Anterior, 410.11 6. - Congestive Heart Failure, 428.0 7. - Cardiomyopathy Ischemic PHASE 3, 414.8 ALLERGIES NKA MEDICATIONS (prior to changes made today) 1. Aspirin 81 mg Tablet, 1 p.o. daily 2. Coreg 12.5 Mg Tablet, 1 p.o. twice daily 3. Inspra 25 Mg Tablet, 1 p.o. daily 4. Losartan 25 Mg Tablet, 1 p.o. daily 5. Nitroglycerin 0.4 mg Tablet, Sublingual, Take as Directed CHIEF COMPLAINTS HISTORY OF PRESENT ILLNESS Thank you for allowing me to participate in the care of this very delightful patient. As you know, Mrs. Contreras is a 55-year-old lady with a history of severe ischemic cardiomyopathy, cardiac arrest inthe setting of acute anterior myocardial infarction. This took place in April 2005. The patient had a protracted hospital course due to cardiogenic shock and was put on [place] briefly. Unfortunately despite revascularization of her proximal LAD total occlusion, her ejection fraction remains reduced less than 30% therefore an ICD was implanted a few months later. Fortunately since then she has not had any ICD therapy for ventricular tachyarrhythmias. She is continuing well somewhat without any frequent MO since then. The patient has been on excellent medical therapy including Coreg, ARB and Inspra. She has been taking aspirin intermittently and has not been on statin for unclear reason perhaps because of the elevated transaminase that was noted in 2007. She had been followed by Dr. Estrada who unfortunately . Her device was interrogated today that showed no evidence of ventricular tachyarrhythmias. On examination, in general the patient appears friendly, healthy in on acute distress. Her blood pressure is 92/60, which is her baseline. Heart rate 66. Her lungs were clear but diminished. Cardiovascular exam normal S1, S2, no S3, S4 there was no murmur. PAST HISTORY Past Medical Illnesses: hyperlipidemia, HTN, 04/01 elevated LFTs Past Cardiac Illnesses: cardiomyopathy(ischemic), coronary artery disease, S/P myocardial infarction- anterior, resuscitatedcardiac arrest outside of hospital Cardiac/Vasc Procedures-Invasive: PTCA with intracoronary stent placement of proximal LAD May 2005, ICD 09/01/05 Cardiology Procedures-NonInvasive: echocardiogram March 2007 Cardiac Cath Results: single [...] by echo 07/28, 03/31 20-25% per echo PHYSICAL EXAMINATION VITAL SIGNS: Blood Pressure: Pulse- .00/min. Weight- 171.00 lbs. Height- .00 Temperature- .00 CONSTITUTIONAL well developed, well nourished, in no acute distress SKIN palmar erythema, spider angiomas HEAD atraumatic EYES Pupils equal and round ENT speech normal NECK no JVD CHEST clear to auscultation CARDIAC normal 1st and 2nd heart sounds without murmur or gallop ABDOMEN no guarding PERIPHERAL PULSES ankle 2- bilateral EXTREMITIES & BACK no edema PSYCHIATRIC appropriate NEUROLOGICAL moves extremities equally MEDICATIONS UPDATED/STARTED TODAY: Coreg 12.5 Mg Tablet, 1 p.o. twice daily, #60 Inspra 25 Mg Tablet, 1 p.o. daily, #30 (Thirty) Losartan 25 Mg Tablet, 1 p.o. daily, #30 (Thirty) MEDICATIONS REFILLED/STOPPED TODAY: Coreg 12.5 Mg Tablet 1 p.o. twice daily #60 Refill, Losartan 25 Mg Tablet 1 p.o. daily #90 Refill, Inspra 25 Mg Tablet 1 p.o. daily #30 (Thirty) Refill and Losartan 25 mg Tablet 1 p.o. daily #90 Refill IMPRESSIONS/PLAN 1.Severe ischemic cardiomyopathy. 2.Status post [employer] ICD implantation. 3.Hyperlipidemia not treated. 4.Ongoing tobacco use. RECOMMENDATIONS: The patient requested to check her device less frequently which is reasonable given that she is quite stable from the arrhythmia perspective. The ICD generator probably will need to be replaced in the next few years. Her blood pressure is always on the low side at 90-100 with orthostatic hypotension. I suggested the patient to stagger her medications. In the past she would take Coreg, losartan and Inspra in the morning and the Coreg at night. I suggested the patient take the Coreg along with the Inspra in the morning but leave the losartan at night. I would like to obtain a fasting lipid profile today along with an ALT. In the past, it was somewhat elevated for unclear reason. I am hoping that it will not be elevated at this time. If her LDL is above 70 we should have it treated to have it remain less than 70 for her. If for some reason her transaminase is quit elevated further evaluation may be required before starting a statin. Thank you for allowing me to participate in the care of this very delightful patient. I would like to see her back in one year sooner should the circumstance dictate. TODAYS ORDERS 1. ICD Interogation 6 months 2. Lipid profile/ALT Today 3. Return Visit 1 year Montrell Mckinley M.D. documented in this encounter Plan of Treatment Upcoming Encounters Date Type Department Care Team (Latest Contact Info) Description 12/22/2024 10:30 AM CDT Hospital Encounter [facility] Endoscopy [address] [phone] Curtis Riggins MD [facility] [place] [address] 12/22/2024 10:30 AM CDT - 12/22/2024 11:00 AM CDT Surgery [facility] Endoscopy [address] [address] Curtis Riggins MD [facility] [place] [address] Esophagoscopy, gastroscopy, duodenoscopy (EGD), combined 01/16/2025 Ancillary Procedure [facility] Heart Care [address] [facility] [address] [place] [address] Montrell Mckinley MD [address] [place] [address] Scheduled Procedures Name Priority Associated Diagnoses Date/Ti me ESOPHAGOGASTRODUODENOSCOPY Epigastric pain 12/22/2024 10:30 AM CDT documented as of this encounter Visit Diagnoses Not on filedocumented in this encounter Care Teams Roller Shop Supervisor Relationship Specialty Start Date End Date Ines Wilson MD [address] [place] [address] PCP - General 04/19/08 02/22/12 Aracelis Montgomery MD PCP - General 02/23/12 04/27/13 Sarah Isabel MD PCP - General Internal Medicine 04/28/13 10/30/14 Bunny Vera MD PCP - General Internal Medicine 10/31/14 04/21/[address] [address] PCP - General 04/22/17 David Nelson MD [address] [place] [address] Assigned Heart and Vascular Provider 03/16/20 09/15/20 Berna Dorantes PA-C [address] [place] [address] Assigned Heart and Vascular Provider 09/16/20 08/10/21 David Nelson MD [address] [place] [address] Assigned Heart and Vascular Provider 08/11/21 05/15/24 David Nelson MD [address] [place] [address] Assigned Heart and Vascular Provider 08/14/24 Therese Harrington PA-C [address] [place] [address] Assigned PCP 11/14/24 documented as of this encounter
--- OUTSIDE RECORDS SUMMARY | 2024-11-28 19:40 | XMS_ITS | Encounter Summary ---
Author Organization [place] Address [facility] [place] [address] Care Team Providers Care Limousine Rental Clerk Name Role Phone Clinic, [facility] Primary Care Provider David Nelson MD Unavailable [phone] Reason for Visit * Reason Onset Date Comments Procedure 11/09/2024 EGD SCHEDULING Encounter Details Date Type Department Care Team (Late st Contact Info) Description 11/09/2024 Telephone [facility] [address] [place] [address] None Procedure (EGD SCHEDULING) Social History Tobacco Use Types Packs/Day Years [...] Answer Date Recorded Do you have housing? 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 Location SH PACEMAKER/ICD Sedation MAC/Deep Sedation PULMONARY HYPERTENSION Patient Reminders: You will receive a call from a Nurse to review instructions and health history. This assessment must be completed prior to your procedure. Failure to complete the Nurse assessment may result in the procedure being cancelled. On the day of your procedure, please designate an adult(s) who can drive you home stay with you forthe next 24 hours. The medicines used in the exam will make you sleepy. You will not be able to drive. You cannot take public transportation, ride share services, or non-medical taxi service without a responsible caregiver. Medical transport services are allowed with the requirement that a responsiblecaregiver will receive you at your destination. We require that drivers and caregivers are confirmed prior to your procedure. * Telephone Encounter - Juan Carlos Amos - 11/09/2024 12:42 PM CDT Endoscopy Scheduling Screen Caller: patient Have you had any respiratory illness or flu-like symptoms in the last 10 days? No What is your communication preference for Instructions and/or Bowel Prep? Mail/USPS What insurance is in the chart? Other: /MEDICARE Ordering/Referring Provider: CAS DOMINIQUE (If ordering provider performs procedure, schedule with ordering provider unless otherwise instructed. ) BMI: Estimated body mass index is 25.37 kg/m?? as calculated from the following: Height as of 11/08/24: 1.568 m (5' 1.75). Weight as of 11/08/24: 62.4 kg (137 lb 9.6 oz). Sedation Ordered moderate sedation. If patient BMI > 50 do not schedule in [facility]. If patient BMI > 45 do not schedule at [facility]. Are you taking methadone or Suboxone? NO, No commercial review appraiser required. Have you been diagnosed and are being treated for severe PTSD or severe anxiety? NO, No commercial review appraiser required. Are you taking any prescription medications for pain 3 or more times per week? NO, No commercial review appraiser required. Do you have a history of malignant hyperthermia? No (Females) Are you currently ? No Have you been diagnosed or told you have pulmonary hypertension? Yes MAC required in hospital setting only. PAC evaluation required if scheduled at [facility]. - MILD Do you have an LVAD? No Have you been told you have moderate to severe sleep apnea? No. Have you been told you have COPD, asthma, or any other lung disease? No Has your doctor ordered any cardiac tests like echo, angiogram, stress test, ablation, or EKG, thatyou have not completed yet? No Do you have a history of any heart conditions? Yes Have you had any hospitalizations in the last year for heart related issues, for example a stent placement, heart attack, or cardiomyopathy? No Do you have any implantable devices in your body (pacemaker, ICD)? Pacemaker (schedule colonoscopy in Hospital Only) and ICD (schedule colonoscopy in Hospital Only) Do you take nitroglycerine? No Have you ever had or are you waiting for an organ transplant? No. Continue scheduling, no site restrictions. Have you had a stroke or transient ischemic attack (TIA aka mini stroke) in the last 2 years? No. Have you been diagnosed with or been told you have cirrhosis of the liver? No. Are you currently on dialysis? No Do you need assistance transferring? No BMI: Estimated body mass index is 25.37 kg/m?? as calculated from the following: Height as of 11/08/24: 1.568 m (5' 1.75). Weight as of 11/08/24: 62.4 kg (137 lb 9.6 oz). Is patients BMI > 40 and scheduling location [facility]? No Do you take an injectable or oral medication for weight loss or diabetes (excluding insulin)? No Do you take the medication Naltrexone? No Do you take blood thinners? No Prep Are you currently on dialysis or do you have chronic kidney disease? No Do you have a diagnosis of diabetes? No Do you have a diagnosis of cystic fibrosis (CF)? No On a regular basis do you go 3 -5 days between bowel movements? No BMI > 40? No Preferred Pharmacy: [id number] - [place] [address] Final Scheduling Details Procedure scheduled Upper endoscopy (EGD) Verifying slot availability. Will call pt back to schedule once slot is verified. Slot: 12/22/2024 peter LUDWIG documented in this encounter Plan of Treatment Upcoming Encounters Date Type Department Care Team (Latest Contact Info) Description 12/22/2024 10:30 AM CDT Hospital Encounter [facility] Endoscopy [address] [address] Curtis Riggins MD [facility] [address] [address] 12/22/2024 10:30 AM CDT - 12/22/2024 11:00 AM CDT Surgery [facility] Endoscopy [address] [place] [address] Curtis Riggins MD [facility] [place] [address] Esophagoscopy, gastroscopy, duodenoscopy (EGD), combined 01/16/2025 Ancillary Procedure [facility] Heart Care [address] [place] [address] Montrell Mckinley MD [address] [place] [address] Scheduled Procedures Name Priority Associated Diagnoses Date/Ti me ESOPHAGOGASTRODUODENOSCOPY Epigastric pain 12/22/2024 10:30 AM CDT documented as of this encounter Visit Diagnoses Not on filedocumented in this encounter Care Teams Limousine Rental Clerk Relationship Specialty Start Date End Date [facility], [address] [address] PCP - General 04/22/17 David Nelson MD [address] [place] [address] [id number] Assigned Heart and Vascular Provider 08/14/24 documented as of this encounter
--- OUTSIDE RECORDS SUMMARY | 2024-11-28 19:40 | XMS_ITS | Encounter Summary ---
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 Gender Identity Not on file Sexual Orientation Not on file documented as of this encounter Plan of Treatment Upcoming Encounters Date Type Department Care Team (Latest Contact Info) Description 12/22/2024 10:30 AM CDT Hospital Encounter [facility] [address] [phone] Curtis Riggins MD [facility] [place] [address] [id number] 12/22/2024 10:30 AM CDT - 12/22/2024 11:00 AM CDT Surgery [facility] [address] [id number] Curtis Riggins MD [facility] [place] [address] [id number] Esophagoscopy, gastroscopy, duodenoscopy (EGD), combined 01/16/2025 Ancillary Procedure [facility] [address] [facility] [address] [place] [phone] Montrell Mckinley MD [address] [place] [id number] Scheduled Procedures Name Priority Associated Diagnoses Date/Ti me ESOPHAGOGASTRODUODENOSCOPY Epigastric pain 12/22/2024 10:30 AM CDT documented as of this encounter Visit Diagnoses Not on filedocumented in this encounter Care Teams Hat Blocker Relationship Specialty Start Date End Date [facility], [address] [address] PCP - General 04/22/17 David Nelson MD [address] [facility] [address] [place] [address] Assigned Heart and Vascular Provider 08/14/24 documented as of this encounter
--- OUTSIDE RECORDS SUMMARY | 2024-11-28 19:40 | XMS_ITS | Clinical Summary ---
Author Organization [facility] Address [address] [place] [address] Care Team Providers Care Carbon Sequestration Plant Operator Name Role Phone Pcp, No Primary Care Provider Unavailabl e Allergies No known active allergies Medications aspirin (ECOTRIN) 81 mg enteric coated tablet Take 81 mg by mouth. 11/12/2018 Active carvediloL (COREG) 12.5 mg tablet Take 12.5 mg by mouth. 01/24/2020 Active simvastatin (ZOCOR) 20 mg tablet Take 20 mg by mouth. 01/23/2020 Active eplerenone (INSPRA) 25 mg tablet Take 1 Tablet (25 mg) by mouth once daily. 0 10/02/2020 Active predniSONE (DELTASONE) 20 mg tabletIndicatio ns:Lip swelling 2 in the morning for two days, then 1 a day for for 5 days. 9 Tablet 10/02/2020 Active Active Problems Problem Noted Date Diagnosed Date Nuclear senile cataract of both eyes 12/25/2021 Presbyopia 12/25/2021 Hyperopia of both eyes 12/25/2021 CHF (congestive heart failure) 10/02/2020 Hypertension 10/02/2020 Ischemic cardiomyopathy 10/02/2020 Overview (10/02/2020): Phase 3 04-28-13 ECHO EF 20-25% GIB (gastrointestinal bleeding) 03/02/2018 Hyperlipidemia LDL goal <70 10/10/2012 Automatic implantable cardioverter-defibrillator in situ 02/22/2007 Overview (10/02/2020): Placed in September [id number] Problem list name updated by automated process. Provider to review Tobacco use disorder 02/22/2007 Tobacco use disorder 08/27/2006 Acute myocardial infarction, unspecified site, episode of care unspecified 08/27/2006 Overview (08/27/2006): OK in 2005 Immunizations Immunization Administration Dates Next Due Influenza, IIV3 (Age >=3 years) 04/19/2008 Pneumococcal Poly,23-Valent (Pneumovax) 04/23/20 06 Tdap 06/08/2006 Social History Tobacco Use Types Packs/Day Years Used Date Smoking Tobacco: Every Day Cigarettes Smokeless Tobacco: Never Tobacco Cessation:Ready to Q uit: No; Counseling Given: Yes Alcohol Use Standard Drinks/Week Comments Not Asked 0 (1 standard drink = 0.6 oz pur e alcohol) Social Connections Answer Date Recorded Frequency of Communication with Friends and Fami ly Not on file 08/13/2023 Financial Resource Strain Answer Date R ecorded Difficulty of Paying Living Expenses Not on file 2021 Difficulty of Paying Living Expenses Not on file 2021 Comments No Sex and Gender Information Value Date Recorded Sex Assigned at Not on file Legal Sex Female 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 Gender Identity Not on file Sexual Orientation Not on file Obstetrics History Last Filed Vital Signs Vital Sign Reading Time Taken Comments Blood Pressure 110/60 10/02/2020 4:27 PM CDT Pulse 64 10/02/2020 4:27 PM CDT Temperature 36.8 C (98.3 F) 08/27/2006 4:00 PM CDT Respiratory Rate - - Oxygen Saturation - - Inhaled Oxygen Concentration - - Weight 55.8 kg (123 lb) 10/02/2020 4:27 PM CDT Height - - Body Mass Index - - Plan of Treatment Health Maintenance Due Date Last Done Comments Depression screening for age 12+ 1968 BMI (ht and wt on same day) for age 18+ 1974 Hepatitis C screening for ag e 18-79 1974 Colonoscopy through age 75 2001 Lipids for age 45-75 2001 Mammogram for age 45-75 2001 Zoster (shingles) series for age 50+ (1 of 2) 2006 Pneumococcal series for age 50+ (2 of 2 - PCV) 04/23/2007 04/23/2006 RSV vaccine for adults or (1 - Risk 60-74 years 1-dose series) 2016 Tetanus booster 06/08/2016 06/08/2006 DEXA/DXA scan for age 65+ 2021 Medicare Wellness for age 65+ 2021 COVID-19 vaccine series ( - 2023- season) 2024 Influenza Vaccine (#1) 2025 04/19/2008 Hepatitis B series for 19+ Aged Out N o longer eligible based on patient's age to complete this topic Insurance [facility] Care Teams Carbon Sequestration Plant Operator Relationship Specialty Start Date End Date Pcp, No . PCP - General 06/25/16
--- OUTSIDE RECORDS SUMMARY | 2024-11-28 19:40 | XMS_ITS | Encounter Summary ---
Author Organization [place] Address [facility] [address] Care Team Providers Care Service Counter Cashier Name Role Phone Ines Wilson MD Primary Care Provider [phone] Aracelis Montgomery MD Primary Care Provider Unavailabl e Sarah Isabel MD Primary Care Provider + [phone] Bunny Vera MD Primary Care Provider [phone] [facility] Primary Care Provider David Nelson MD Unavailable [phone] Berna Dorantes PA-C Unavailable David Nelson MD Unavailable [phone] David Nelson MD Unavailable [phone] Therese Harrington-C Unavailable Encounter Details Date Type Department Care Team (Late st Contact Info) Description 11/05/2010 Office Visit-[facility] [place] [address] [facility] [address] [place] [phone] Myrna Phipps APRN [facility] [address] [facility] [address] [place] [id number] Social History Tobacco Use Types Packs/Day Years Used Date Smoking Tobacco: Every Day Comments:less than 1/2 ppd Alcohol Use Standard Drinks/Week Comments Yes 0 (1 standard drink = 0.6 oz pur e alcohol) social Comments No Sex and Gender Information Value Date Recorded Sex Assigned at Not on file Legal Sex Female 3:20 AM MATE FIRST Gender Identity Not on file Sexual Orientation Not on file documented as of this encounter Progress Notes * Myrna Phipps NP - 12/24/2011 2:35 PM CDT Progress Note Created by: Myrna Phipps N.P. [id number] DATE: 11/05/2010 KIMBERLEY CONTRERAS DATE OF : 1955 AGE: [age] years old Referring Physician: INES WILSON Referring Clinic: [facility] CURRENT DIAGNOSES 1. - Hyperlipidemia, 272.4 2. - Cardiac Arrest, 427.5 3. [id number], V45.02 4. Hepatomegaly, 789.1 5. - Congestive Heart Failure, 428.0 6. - Cardiomyopathy Ischemic PHASE 3, 414.8 7. PA-Acute Anterior, 410.11 ALLERGIES NKA MEDICATIONS (prior to changes made today) 1. Aspirin 81 mg Tablet, 1 p.o. daily 2. simvastatin 20 mg Tablet, 1 p.o. qHS 3. Nitroglycerin 0.4 mg Tablet, Sublingual, Take as Directed 4. carvedilol 12.5 mg Tablet, 1 p.o. twice daily 5. eplerenone 25 mg Tablet, 1 p.o. daily CHIEF COMPLAINTS Followup of cardiomyopathy HISTORY OF PRESENT ILLNESS: This is a delightful 55-year-old female who presents to the [facility] today for a follow up visit. She is a patient of Dr. Cobian and Dr. May who is seen in our clinic for a past medical history of: 1. Cardiomyopathy. 2. Status post AICD. 3. Coronary artery disease. 4. Hyperlipidemia. 5. Tobacco abuse. Kimberley has a history of coronary artery disease. She suffered a large anterior wall myocardial infarction and cardiac arrest in 2004. She was shown to have an ischemic cardiomyopathy with an initial left ventricular ejection fraction of 25%. Despite beta-blockade and ARB therapy, her left ventricular function remained diminished. She underwent ICD implantation with a Guidant AICD that was implanted in August 2005. She continues to smoke despite our urging to quit. There has been a history of elevated liver enzymes. Therefore, statins had not been started in the past. However recently, her liver enzymes normalized and she was started on simvastatin in July 2010. A follow up lipid panel did reveal an LDL level of less than 70. She was seen in our clinic last week as she heard a beeping fromher device. The Device Clinic did document that the device has reached DIETER. There was no evidence of any ventricular tachycardia or ventricular fibrillation. She was noted to be 100% sensed. She is planning to undergo an upcoming generator change. Kimberley tells me that she has been doing well. She denies any chest discomfort or neck, arm, or jaw pain with activity or at rest. She has not been short of breath. She denies any orthopnea, paroxysmal nocturnal dyspnea, or peripheral edema. She also denies any palpitations, lightheadedness, dizziness, or near syncope. Her blood pressure today was 115/74. Heart rate was 64 beats per minute. Her lungs were clear. There was no evidence of any jugular venous distention or peripheral edema. She denies any muscle aches or darkened urine. Further review of systems and physical exam are as noted below. 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 EYES wears eye glasses/contact lenses, readers EARS, NOSE, THROAT, MOUTH denies any hearing loss, epistaxis, hoarseness or difficulty speaking. RESPIRATORY denies dyspnea, snoring, cough, wheezing or hemoptysis. CARDIOVASCULAR dizziness, somestimes ABDOMINAL denies change in bowel habits, dyspepsia, ulcer disease, hematochezia or melena. GENITOURINARY-FEMALE post menopausal without hormonal replacement MUSCULOSKELETAL body aches NEUROLOGICAL denies any history of recurrent headaches, strokes, TIA, or seizure disorder. PSYCHIATRIC stress, - work ENDOCRINE hyperlipidemia, denies any history of thyroid disease or diabetes mellitus. HEMATOLOGICAL/IMMUNOLOGIC denies any food allergies, seasonal allergies, bleeding disorders or lymphadenopathy. PHYSICAL EXAMINATION VITAL SIGNS: Blood Pressure: 115/74Sitting, Left arm, regular cuff Pulse- 64.00/min. Weight- 168.00 lbs. Height- 61.00 Temperature- .00 CONSTITUTIONAL well developed, well nourished, [...] NEUROLOGICAL moves extremities equally MEDICATIONS UPDATED/STARTED TODAY: carvedilol 12.5 mg Tablet, 1 p.o. twice daily, #-1 eplerenone 25 mg Tablet, 1 p.o. daily, #-1 MEDICATIONS REFILLED/STOPPED TODAY: Coreg 12.5 Mg Tablet 1 p.o. twice daily #60 Substitution, Inspra 25 Mg Tablet 1 p.o. daily #30 (Thirty) Substitution and Losartan 25 Mg Tablet 1 p.o. daily #30 (Thirty) Substitution IMPRESSION/PLAN: 1. Coronary artery disease. She has a history of a large anterior wall myocardial infarction and cardiac arrest in 2004. There have not been any follow up nuclear stress testing. However, she has been free from any anginal symptoms. She continues on aspirin and beta-blockade. 2. Ischemic cardiomyopathy. Left ventricular ejection fraction was estimated at 25%. I see no signs or symptoms of fluid overload on today's examination. She has undergone an AICD implantation in 2005. Her device has reached DIETER. She is awaiting an upcoming generator change. I have discussed this procedure as well as therisks and benefits involved, which are to include (but are not limited to) bleeding, infection, and reaction to sedation. The patient is in agreement and is willing to proceed. Consent has been signed. 3. Hyperlipidemia. LDL level was at goal on simvastatin. 4. Tobacco abuse. I encouraged cessation. However, she is continuing to smoke. Thank you for allowing me to participate in this patient's care. TODAYS ORDERS Myrna Phipps N.P. documented in this encounter Plan of Treatment Upcoming Encounters Date Type Department Care Team (Latest Contact Info) Description 12/22/2024 10:30 AM CDT Hospital Encounter [facility] [address] [id number] Curtis [facility]iggins [facility] [place] [id number] 12/22/2024 10:30 AM CDT - 12/22/2024 11:00 AM CDT Surgery [facility] [address] [id number] Curtis Riggins MD [facility] [address] [id number] Esophagoscopy, gastroscopy, duodenoscopy (EGD), combined 01/16/2025 Ancillary Procedure [facility] [address] [facility] [address] [place] [phone] Montrell Mckinley MD [address] [address] [address] Scheduled Procedures Name Priority Associated Diagnoses Date/Ti me ESOPHAGOGASTRODUODENOSCOPY Epigastric pain 12/22/2024 10:30 AM CDT documented as of this encounter Visit Diagnoses Not on filedocumented in this encounter Care Teams Service Counter Cashier Relationship Specialty Start Date End Date Ines Wilson MD [address] [id number] PCP - General 04/19/08 02/22/12 Aracelis Montgomery MD PCP - General 02/23/12 04/27/13 Sarah Isabel MD PCP - General Internal Medicine 04/28/13 10/30/14 Bunny Vera MD PCP - General Internal Medicine 10/31/14 04/21/[address] [id number] PCP - General 04/22/17 David Nelson MD [address] [place], [place] [id number] Assigned Heart and Vascular Provider 03/16/20 09/15/20 Berna Dorantes PA-C [address] [place], [place] [id number] Assigned Heart and Vascular Provider 09/16/20 08/10/21 David Nelson MD [address] [place] [address] Assigned Heart and Vascular Provider 08/11/21 05/15/24 David Nelson MD [address] [place], [place] [id number] Assigned Heart and Vascular Provider 08/14/24 Therese Harrington PA-C [address] [place] [address] Assigned PCP 11/14/24 documented as of this encounter
--- OUTSIDE RECORDS SUMMARY | 2024-11-28 19:40 | XMS_ITS | Clinical Summary ---
Author Organization [place] Address [facility] [address] [place] [address] Care Team Providers Care Screw Machine Set Up Operator Name Role Phone Clinic, [facility] Primary Care Provider David Nelson MD Unavailable [phone] Therese Harrington PA-C Unavailable Allergies No known active allergies Medications aspirin (ASA) 81 MG EC tablet Take 1 tablet (81 mg) by mouth daily 9 Active simvastatin (ZOCOR) 20 MG tabletIndications:H yperlipidemia LDL goal <70 Take 1 tablet (20 mg) by mouth at bedtime. 90 tablet 3 5 Active carvedilol (COREG) 12.5 MG tabletIndications:I schemic cardiomyopathy Take 1 tablet (12.5 mg) by mouth 2 times daily (with meals). 180 tablet 3 5 Active losartan (COZAAR) 25 MG tabletIndications:C hronic systolic congestive heart failure (H) Take 1 tablet (25 mg) by mouth daily. 90 tablet 3 5 Active omeprazole (PRILOSEC) [address] capsuleIndications: Epigastric pain Take 1 capsule (40 mg) by mouth daily. 90 capsule 1 5 Active Active Problems Problem Noted Date Diagnosed Date GIB (gastrointestinal bleeding) 03/02/2018 Neck pain 06/08/2014 Hyperlipidemia LDL goal <70 10/10/2012 Preventative health care 03/23/2012 Old myocardial infarction 02/22/2007 Overview (02/22/2007): April 2005 Automatic implantable cardioverter-defibrillator in situ 02/22/2007 Overview (02/22/2015): Placed in September 012005 Problem list name updated by automated process. Provider to review Tobacco use disorder 02/22/2007 Encounter for screening for osteoporosis 007 Overview (02/22/2015): Problem list name updated by automated process. Provider to review Hypertension CAD (coronary artery disease) CHF (congestive heart failure) Ischemic cardiomyopathy Overview (05/01/2014): Phase 3 04-28-13 ECHO EF 20-25% Resolved Problems Problem Noted Date Diagnosed Date Resolved Date Unstable angina 09/12/2015 03/02/2018 Advanced directives, counseling/discussion 03/23/2012 03/03/2018 Overview (03/23/2012): Parent voices understanding and acceptance of this advice and will call back if any further questions or concerns. Elevated LFT's (only alt result available) 04/19/2008 03/02/2018 Hyperlipidemia 02/22/2007 05/01/2014 Overview (02/22/2015): Problem list name updated by automated process. Provider to review Essential hypertension 02/22/200705/01 Overview (02/22/2015): Problem list name updated by automated process. Provider to review Encounters Date Type Department Care Team Description 11/09/2024 Results Follow-Up [address] [address] Therese Rowland PA-C 11/09/2024 Telephone [facility] Gastroenterology [address] 4th [place] [address] None Procedure (EGD SCHEDULING) 11/08/2024 2:30 PM CDT Office Visit [address] [place] [phone] Therese Rowland PA-C Epigastric pain (Primary Dx) 11/08/2024 Travel 10/12/2024 8:50 AM CDT Ancillary Procedure [facility] [address] [place] [phone] Andrea Escamilla MD Ischemic cardiomyopathy; ICD (implantable cardioverter-defib rillator) in place 10/12/2024 Travel 10/03/[address] [facility] [address] [place] [address] David Nelson MD Refill Request from Last 3 Months Immunizations Immunization Administration Dates Next Due Influenza (IIV3) PF 04/19/2008 Pneumococcal 23 valent 04/23/2006 TDAP Vaccine (Boostrix) 06/08/2006 Family History Medical History Relation Comments Diabetes Brother 1 Hypertension Brother 1 Suicide Brother 2 No Known Problems Brother 4 No Known Problems Maternal Grandmother Lung Cancer Sister 1 Alcoholism Sister 2 No Known Problems Sister 3 No Known Problems Sister 4 Coronary Artery Disease No family hx of Relation Status Comments Brother 1 Brother 2 Brother 3 Alive Brother 4 Alive Father Maternal Grandmother Mother Sister 1 Sister 2 Sister 3 Alive Sister 4 Alive Social History Tobacco Use Types Packs/Day Years [...] in an abandoned building, in an overnight fci, or couch-surfing.) No 11/08/2024 Are you worried [...] on file Legal Sex Female 3:20 AM PUBLIC RELATIONS PROFESSIONAL Gender Identity Not on file Sexual [...] Mass Index 25.37 11/08/2024 2:14 PM CDT Plan of Treatment Upcoming Encounters Date Type Department Care Team (Latest Contact Info) Description 12/22/2024 10:30 AM CDT Hospital Encounter [facility] Endoscopy [address] [phone] Curtis Riggins MD [facility] [address] [id number] 12/22/2024 10:30 AM CDT - 12/22/2024 11:00 AM CDT Surgery [facility] Endoscopy [address] [phone] Curtis Riggins MD [facility] [address] [address]608 Esophagoscopy, gastroscopy, duodenoscopy (EGD), combined 01/16/2025 Ancillary Procedure [facility] [address] [facility] [address] [place] [phone] Montrell Mckinley MD [address] [place] [address] Scheduled Procedures Name Priority Associated Diagnoses Date/Ti me ESOPHAGOGASTRODUODENOSCOPY Epigastric pain 12/22/2024 10:30 AM CDT Health Maintenance Due Date Last Done Comments CT COLONOGRAPHY 1956 FLEX SIG 1956 HF ACTION PLAN 1956 sDNA (Cologuard) 1956 COLONOSCOPY 1966 DEXA 1974 HEPATITIS C SCREENING 1974 ZOSTER VACCINE (1 of 2) 2006 LUNG CANCER SCREENING 04/10/2007 04/10/2006, 005 PNEUMOCOCCAL VACCINE 50+ YEARS (2 of 2 - PCV) 04/23/2007 04/23/2006 MAMMO SCREENING 04/06/2014 04/06/2012 RSV VACCINE (1 - Risk 60-74 years 1-dose series) 2016 DTAP/TDAP/TD VACCINE (2 - Td or Tdap) 06/08/2016 06/08/2006 COLORECTAL CANCER SCREENING 03/02/2019 FIT 03/02/2019 03/02/2018 CBC 12/04/2019 12/03/2018, 02/22, 03/02/2018, Additional history exists MEDICARE ANNUAL WELLNESS VISIT 2021 LIPID 10/10/2021 10/10/2020, 11/23, 08/31/2017, Additional history exists ADVANCE CARE PLANNING 03/03/2023 03/03/2018, 018 COVID-19 VACCINE ( season) 2024 INFLUENZA VACCINE (#1) 2025 04/19/2008 BMP 05/10/2025 11/08/2024, 07/23, 10/10/2020, Additional history exists ALT 11/08/2025 11/08/2024, 09/22, 12/20/2018, Additional history exists ANNUAL REVIEW OF HM ORDERS 11/08/2025 11/08/2024 FALL RISK ASSESSMENT 11/08/2025 11/08/2024 NICOTINE/TOBACCO CESSATION COUNSELING Q 1 YR 11/08/2025 11/08/2024 DIABETES SCREENING 11/09/2027 11/08/2024, 0 08/06/2021, 10/10/2020, Additional history exists TSH W/FREE T4 REFLEX Completed 06/09/2005, 05/24/20 05 PHQ-2 (once per calendar year) Completed 07/22/2024, 10/21/2022 HPV VACCINE Aged Out No longer eligi ble based on patient's age to complete this topic MENINGITIS VACCINE Aged Out No longer eligible based on patient's age to complete this topic Medical Devices Implanted Type Area Ditch Worker Device Identifier Shelf Expiration Date Model / Serial / Lot Phoenix Scie* E102 Teligen 100 [id number] Implanted:10/24 (Quantity not on file) ICD [employer] E102 TELIGEN 100 / [id number] / Guidant Tracie 0184 Endotak [place] G [id number] Implanted:08/23 (Quantity not on file) Leads [employer] 0184 ENDOTAK RELIANCE G / [id number] / Procedures Procedure Name Priority Date/Time Associated Diagnosis Comments LIPASE Routine 11/08/2024 2:47 PM CDT Epigastric pain COMPREHENSIVE METABOLIC PANEL Routine 11/08/2024 2:47 PM CDT Epigastric pain ICD DEVICE PROGRAMMING EVAL, SINGLE LEAD ICD Routine 10/12/2024 8:49 AM CDT Ischemic cardiomyopathy ICD (implantable cardioverter-defib rillator) in place LIPID PROFILE Routine 10/10/2020 10:31 AM CDT Coronary artery disease involving [place] coronary artery of [place] heart without angina pectoris CBC WITH PLATELETS & DIFFERENTIAL STAT 12/03/2018 9:24 PM CDT OCCULT BLOOD STOOL Routine 03/02/2018 5: 15 PM CDT Upper GI bleed MA SCREENING DIGITAL BILATERAL Routine 04/06/2012 10:14 AM PUBLIC RELATIONS PROFESSIONAL Preventative health care HC CT THORAX W/O CONT Routine 04/10/2006 1:09 PM PUBLIC RELATIONS PROFESSIONAL TSH Routine 06/09/2005 1:20 PM PUBLIC RELATIONS PROFESSIONAL from Last 3 Months or Most Recently Relevant to Health Maintenance Results * Lipase (11/08/2024 2:47 PM CDT) Lipase 21 13 - 60 U/L 11/09/2024 12:43 AM CDT [facility] Blood BLOOD SPECIMEN / Unknown Venipuncture / Unknown 11/08/2024 2:47 PM CDT 11/08/2024 2:47 PM CDT us Therese Harrington PA-C LAB - BLOOD MELODY GARCIA Final Result [facility] [address] [facility] [address], [address] [place] [address] * (ABNORMAL) Comprehensive metabolic panel (11/08/2024 2:47 [...] Therese Harrington PA-C LAB - BLOOD MELODY BRITTONHALLE Final Result [facility] [address] [facility], [address] [phone] * ICD DEVICE PROGRAMMING EVAL, SINGLE LEAD ICD (10/12/2024 8:49 AM CDT) Date Time Interrogation Session [id number] [employer] Implantable Pulse Generator Ditch Worker [employer] Implantable Pulse Generator Model E102 TELIGEN 100 [employer] Implantable Pulse Generator Serial Number [id number] [employer] Type Interrogation Session In Clinic [employer] Clinic Name [facility] [employer] Implantable Pulse Generator Type Defibrillator [employer] Implantable Pulse Generator Implant Date [id number] [employer] Implantable Lead Ditch Worker Guidant [employer]IC Implantable Lead Model 0184 Endotak [place] G [employer] Implantable Lead Serial Number [id number] [employer] Implantable Lead Implant Date 20050901 [employer] Implantable Lead Polarity Type Tripolar Lead [employer] Implantable Lead Location Detail 1 APEX [employer] Implantable Lead Location Right Ventricle [employer] Implantable Lead Connection Status Connected [employer] Magen Setting Mode (NBG Code) VVI [employer] Magen Setting Lower Rate Limit 50 {beats}/ min [employer] Lead Channel Setting Sensing Polarity Bipolar [employer] Lead Channel Setting Sensing Sensitivity 0.6 mV [employer] Lead Channel Setting Sensing Adaptation Mode Adaptive [employer] Lead Channel Setting Pacing Polarity Bipolar [employer] Lead Channel Setting Pacing Pulse Width 0.5 ms [employer] Lead Channel Setting Pacing Amplitude 1.6 V [employer] Zone Setting Type Category VF [employer]IC Zone Setting Vendor Type Category VF [employer] Zone Setting Status Active [employer] Zone Setting Detection Interval 250 ms MEDTRONIC Zone Setting Type Category VT MEDTRONIC Zone Setting Vendor Type Category VT [employer]TR[employer]IC Zone Setting Status Active [employer]IC Zone Setting Detection Interval 333 ms MEDTRONIC Zone Setting Type Category VT [employer]TR[employer]IC Zone Setting Vendor Type Category VT-1 [employer]IC Zone Setting Status Monitor [employer]IC Zone Setting Detection Interval 400 ms [employer] Lead Channel Impedance Value 512 ohm [employer] Lead Channel Pacing Threshold Amplitude 0.8 V [employer] Lead Channel Pacing Threshold Pulse Width 0.5 ms [employer] Battery Date Time of Measurements [id number] [employer] Battery Status Middle of Service MEDTRON IC Battery Remaining Longevity 11 mo [employer] Battery Remaining Percentage 12 % [employer] Capacitor Charge Type Reformation [employer] Capacitor Last Charge Date Time [id number] [employer] Capacitor Charge Time 11.5 s [employer] Magen Statistic Date Time Start [employer] Magen Statistic Date Time End [employer] Magen Statistic RV Percent Paced 14 % [employer] Therapy Statistic Recent Shocks Delivered 0 [employer] Therapy Statistic Recent Shocks Aborted 0 [employer]IC Therapy Statistic Recent ATP Delivered 0 [employer] Therapy Statistic Recent Date Time Start [employer]TR[employer]IC Therapy Statistic Recent Date Time End [employer]TR[employer]IC Therapy Statistic Total Shocks Delivered 0 [employer]IC Therapy Statistic Total Shocks Aborted 0 [employer]IC Therapy Statistic Total ATP Delivered 0 [employer]IC Therapy Statistic Total Date Time Start MEDTRONIC Therapy Statistic Total Date Time End MEDTRONIC Episode Statistic Recent Count 0 MEDTRONIC Episode Statistic Type Category Other MEDTRONIC Episode Statistic Recent Count 6 MEDTRONIC Episode Statistic Type Category VT MEDTRONIC Episode Statistic Vendor Type Category NSVT MEDTRONIC Episode Statistic Recent Count 0 MEDTRONIC Episode Statistic Type Category VT MEDTRONIC Episode Statistic Vendor Type Category VT MEDTRONIC Episode Statistic Recent Count 0 MEDTRONIC Episode Statistic Type Category VT MEDTRONIC Episode Statistic Vendor Type Category VT-1 [employer]TR[employer]IC Episode Statistic Recent Date Time Start [id number] [employer]ONIC Episode Statistic Recent Date Time End [id number] [employer]ONIC Episode Statistic Recent Date Time Start [id number] [employer] Episode Statistic Recent Date Time End [id number] [employer] Episode Statistic Recent Date Time Start [id number] [employer] Episode Statistic Recent Date Time End [id number] [employer] Episode Statistic Recent Date Time Start [id number] [employer] Episode Statistic Recent Date Time End [id number] [employer] Anatomical Region Laterality Modality Other 10/12/2024 8:54 AM CDT Narrative 10/14/2024 3:59 PM CDT [employer] App Teligen (S) ICD Device Check Patient seen in clinic for device evaluation and iterative programming. Mode: VVI 50 Underlying Rhythm: SB 40-50's Pacing/Histogram Data Since: 1/3/24 AP: NA % VOIP NETWORK ENGINEER: 14 % Heart Rate: 50-100 with good variability Sensing: WNL Pacing Threshold: WNL Impedance: WNL Battery Status: estimated at 11 months remaining until DIETER. Discussed what to expect when DIETER is reached. Device Site: well healed Arrhythmia Data Since: 07/18/24 Atrial Arrhythmia: 0 Ventricular Arrhythmia: 1 HVR episode logged. EGM shows 9 beats of NSVT at 155 bpm ATP: - Shocks: - Tachy Therapy History: implanted for primary prevention (history of cardiac arrest in the setting of acute myocardial infarction in May 2005. Unfortunately, LV function remained reduced despite revascularization and optimal medical therapy and, therefore, an ICD was implanted) -- Ozmosis Teligen (10/2010 - present): updated 10/12/24 by SB RN - no therapies logged -- Guidant Vitality (08/2005 - 10/2010): completed 03/26/23 GG RN - no therapies documented in Paceart or Epic - DFTs at implant (shock x2) Setting Change: adjusted amplitude from 2V to 1.6V based on clinic protocol of 2 x safety margin and to conserve battery. Care Plan: follow up with Dr. Nelson 06/2025. Next remote on 01/16/25. SANDIE Sarabia I have reviewed and interpreted the device interrogation, settings, programming and nurse's summary. The device is functioning within normal device parameters, unless otherwise noted above. I agree with the current findings, assessment, and plan. us Andrea Escamilla MD [facility] ORDERABLES F inal Result * Lipid Profile (10/10/2020 10:31 AM CDT) Cholesterol 146 <200 mg/dL 10/10/2020 11:56 AM T [facility] Triglycerides 81 <150 mg/dL 10/10/2020 11:56 AM T [facility] HDL Cholesterol 85 >49 mg/dL 11:56 AM T [facility] LDL Cholesterol Calculated 45 <100 mg/dL 10/10/2020 11:56 AM T [facility] Comment:Desirable: <100 mg/d l Non HDL Cholesterol 61 <130 mg/dL 10/10/2020 11:56 AM [facility] Blood 10/10/2020 10:3 1 AM CDT 10/10/2020 10:36 AM CDT us Berna Dorantes PA-C LAB - BLOOD ORDERABLE S Final Result [facility] [address] [place] [address], [facility] [phone] * (ABNORMAL) CBC with platelets differential (12/03/2018 9:24 PM CDT) WBC 6.2 4.0 - 11.0 10e9/L 12/03/2018 9:31 PM [facility] RBC Count 4.23 3.8 - 5.2 10e12/L 12/03/2018 9:31 PM [facility] Hemoglobin 13.2 11.7 - 15.7 g/dL 12/03/2018 9:31 PM [facility] Hematocrit 40.4 35.0 - 47.0 % 12/03/2018 9:31 PM [facility] MCV 96 78 - 100 fl 12/03/2018 9:31 PM [facility] MCH 31.2 26.5 - 33.0 pg 12/03/2018 9:31 PM [facility] MCHC 32.7 31.5 - 36.5 g/dL 12/03/2018 9:31 PM [facility] RDW 13.6 10.0 - 15.0 % 12/03/2018 9:31 PM [facility] Platelet Count 137(L) 150 - 450 10e9/L 12/03/2018 9:31 PM [facility] Diff Method Automated Method 12/03/2018 9:31 PM [facility] % Neutrophils 46.8 % 12/03/2018 9:31 PM [facility] % Lymphocytes 42.2 % 12/03/2018 9:31 PM [facility] % Monocytes 7.7 % 12/03/2018 9:31 PM [facility] % Eosinophils 2.3 % 12/03/2018 9:[address] [facility] % Basophils 0.8 % 12/03/2018 9:31 PM [facility] % Immature Granulocytes 0.2 % 12/03/2018 9:31 PM [facility] Nucleated RBCs 0 0 /100 12/03/2018 9:[address] [facility] Absolute Neutrophil 2.9 1.6 - 8.3 10e9/L 12/03/2018 9:[address] [facility] Absolute Lymphocytes 2.6 0.8 - 5.3 10e9/L 12/03/2018 9:31 PM [facility] Absolute Monocytes 0.5 0.0 - 1.3 10e9/L 12/03/2018 9:31 PM [facility] Absolute Eosinophils 0.1 0.0 - 0.7 10e9/L 12/03/2018 9:31 PM [facility] Absolute Basophils 0.1 0.0 - 0.2 10e9/L 12/03/2018 9:31 PM [facility] Abs Immature Granulocytes 0.0 0 - 0.4 10e9/L 12/03/2018 9:31 PM [facility] Absolute Nucleated RBC 0.0 12/03/2018 9:31 PM [facility] Blood specimen (specimen) 12/03/2018 9:24 PM CDT 12/03/2018 9:28 PM CDT Ba Kahn MD LAB - BLOOD ORDERABLES Final R esult [facility] [address] [place] [address], [facility] [phone] * (ABNORMAL) Occult blood stool (03/02/2018 5:15 PM CDT) Occult Blood Positive(A ) NEG^Negati ve 03/02/2018 5:[address] [facility] Stool specimen (specimen) 03/02/2018 5:15 PM CDT 03/02/2018 5:44 PM CDT Kvng Roman MD LAB - STOOLS ORDERABLES Edited Result - Final [facility] [place] [address], [facility] [phone] * Mammo Screening digital (bilat) (04/06/2012 10:14 AM PUBLIC RELATIONS PROFESSIONAL) Anatomical Region Laterality Modality Breast Bilateral Mammography 04/06/2012 10:1 4 AM PUBLIC RELATIONS PROFESSIONAL Impressions 04/06/2012 11:35 AM PUBLIC RELATIONS PROFESSIONAL SCREENING MAMMOGRAM, BILATERAL, DIGITAL w/CAD - 04/06/2012 10:14 AM BREAST SYMPTOMS: No current breast complaints. COMPARISON: Baseline. PARENCHYMAL PATTERN: Scattered fibroglandular densities. COMMENTS: No findings of suspicion for malignancy. Evaluation of the left axilla is limited by overlying electronic device. IMPRESSION: BIRADS 1, NEGATIVE. RECOMMENDATION: Recommend annual screening mammography. Exam results letter mailed to patient. Sarah Isabel MD IMG MAMMOGRAPHY ORDERABLES Edited * CT SCAN CHEST (04/10/2006 1:09 PM PUBLIC RELATIONS PROFESSIONAL) Anatomical Region Laterality Modality Other 04/10/2006 1:09 PM PUBLIC RELATIONS PROFESSIONAL Impressions 04/11/2006 8:[address] chest with intravenous contrast 04/10/2006 Clinical Information: Chest pain. Smoker. Evaluate for pulmonary embolism. Comparison: 05/22/2005. Procedure: Following the uneventful administration of 100 cc Optiray-300 intravenous contrast, helical sections were acquired through the lungs according to the pulmonary embolism protocol. Coronal reconstructions were generated. Findings: No visualized pulmonary embolism. This is a good quality study for the detection of pulmonary emboli. The thoracic aorta is normal in caliber without dissection. A stent is present within the left anterior descending coronary artery. Defibrillator device present within the left anterior chest wall with single lead tip within the right ventricle. Moderate dilatation of the left ventricle. Mild upper lobe predominant centrilobular and paraseptal emphysematous changes are present. There is mildly prominent peripheral intralobular septal thickening which could represent interstitial pulmonary edema. The lungs are otherwise clear. No pleural or pericardial effusion. There are a few borderline enlarged mediastinal and hilar lymph nodes. No enlarged lymph nodes within the chest. 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 Scan through the upper abdomen is unremarkable. Impression: 1. No pulmonary embolism. 2. Mild prominence of the peripheral intralobular septa could relate to interstitial pulmonary edema. 3. The lungs are otherwise clear. Findings were conveyed to Dr. Mckeon by Dr. Navarro on 04/10/2006. us Tiffany Mckeon MD SPECIAL IMAGING STUDIES Edite d * TSH (06/09/2005 1:20 PM PUBLIC RELATIONS PROFESSIONAL) TSH 3.23 0.4 - 5.0 mU/L MISYS 06/09/2005 1:20 PM PUBLIC RELATIONS PROFESSIONAL 06/09/2005 12:25 PM PUBLIC RELATIONS PROFESSIONAL us Keturah Watson MD LAB - BLOOD ORDERABLES Final R esult MISYS from Last 3 Months or Most Recently Relevant to Health Maintenance Insurance [employer] [address] [id number] [place] [id number] [employer] Advance Directives For more information, please contact: [phone] * Full Code (Latest Code Status on File) Date Activated Date Inactivated Comments 03/04/2018 8:53 AM 12/03/2018 9:11 PM Question Answer Comments Code status determined by: Discussion with patie nt/legal decision maker * Full Code Date Activated Date Inactivated Comments 03/02/2018 10:59 PM 03/04/2018 8:53 AM Question Answer Comments Code status determined by: Discussion with patie nt/legal decision maker * Full Code Date Activated Date Inactivated Comments 09/13/2015 2:18 PM 03/02/2018 10:59 PM * Full Code Date Activated Date Inactivated Comments 09/12/2015 12:49 AM 09/13/2015 2:18 PM * Full Code Date Activated Date Inactivated Comments 02/24/2012 4:42 PM 09/12/2015 12:49 AM Care Teams Screw Machine Set Up Operator Relationship Specialty Start Date End Date Clinic, [address] [address] PCP - General 04/22/17 David Nelson MD [address] [facility] [address] [place] [address] Assigned Heart and Vascular Provider 08/14/24 Therese Harrington PA-C [address] [place] [address] Assigned PCP 11/14/24
--- NOTE | 2024-11-28 20:22 | ED_ITS ---
HPI - Abdominal Pain General Time Seen by Provider: 20:22 <Zoë Scott MD - Last Filed: 11/29/24 14:36> Date Seen: 11/28/24 <Zoë Scott MD - Last Filed: 11/29/24 14:36> Chief Complaint: Abdominal Pain <Zoë Scott MD - Last Filed: 11/29/24 14:36> Stated Complaint: stomach pain <Zoë Scott MD - Last Filed: 11/29/24 14:36> Time Seen by Provider: 11/28/24 20:22 <Zoë Scott MD - Last Filed: 11/29/24 14:36> Source: patient and RN notes reviewed <Zoë Scott MD - Last Filed: 11/29/24 14:36> Mode of arrival: ambulatory <Zoë Scott MD - Last Filed: 11/29/24 14:36> Limitations: no limitations <Zoë Scott MD - Last Filed: 11/29/24 14:36> History of Present Illness HPI narrative: Kimberley is a very pleasant 69-year-old female with history of coronary artery disease, upper GI bleed, ischemic cardiomyopathy with ICD in place who comes to the emergency room for abdominal pain and shortness of breath after eating. Patient notes increasing abdominal pain over the last 3-4 months after eating. She has actually experienced a 13 lb weight gain in the last few months. She has no changes in her stools and denies any constipation or diarrhea. She has not had fever or chills. She notes over the past day just with walking she has increasing abdominal pain and chest pain with eating or any activity. Notes that she has abdominal pain all the time over the last 3-4 months and has tried omeprazole and has upper endoscopy scheduled for December 22. <Zoë Scott MD - Last Filed: 11/29/24 14:36> Related Data Home Medications: Home Medications ?Medication ?Instructions ?Recorded ?Confirmed aspirin 81 mg tablet,delayed 81 mg PO QDAY 07/09/22 release (Adult Low Dose Aspirin) carvedilol 12.5 mg tablet 12.5 mg PO 07/09/22 03/17/24 eplerenone 25 mg tablet 25 mg PO 07/09/22 03/17/24 losartan 25 mg tablet 25 mg PO 07/09/22 03/17/24 simvastatin 20 mg tablet 20 mg PO 07/09/22 03/17/24 omeprazole 40 mg capsule,delayed 40 mg PO DAILY 11/28/24 release <Zoë Scott MD - Last Filed: 11/29/24 14:36> Allergies/Adverse Reactions: Allergies Allergy/AdvReac Type Severity Reaction Status Date / Time No Known Drug Allergies Allergy Verified 11/28/24 22:27 <Zoë Scott MD - Last Filed: 11/29/24 14:36> Review of Systems Status of ROS Reports: 10 or more systems reviewed and unremarkable except as noted in History and below <Zoë Scott MD - Last Filed: 11/29/24 14:36> Const Reports: change in weight (17 lb weight gain since June); Denies: fever, chills or fatigue <Zoë Scott MD - Last Filed: 11/29/24 14:36> ENMT Denies: throat pain or nasal congestion <Zoë Scott MD - Last Filed: 11/29/24 14:36> Cardio Reports: chest pain and shortness of breath with exertion; Denies: swelling of feet/ankles <Zoë Scott MD - Last Filed: 11/29/24 14:36> Resp Reports: shortness of breath; Denies: cough <Zoë Scott MD - Last Filed: 11/29/24 14:36> GI Reports: abdominal pain, nausea and vomiting; Denies: diarrhea, constipation or blood in stool <Zoë Scott MD - Last Filed: 11/29/24 14:36> Denies: painful urination <Zoë Scott MD - Last Filed: 11/29/24 14:36> Musculo Denies: back pain <Zoë Scott MD - Last Filed: 11/29/24 14:36> Endo Denies: fatigue <Zoë Scott MD - Last Filed: 11/29/24 14:36> [facility] Medical History: Medical History ICD (implantable cardioverter-defibrillator) in place ?Z95.810 - Presence of automatic (implantable) cardiac defibrillator (ICD-10) Shoulder pain, right ?M25.511 - Pain in right shoulder (ICD-10) Upper GI bleed ?K92.2 - Gastrointestinal hemorrhage, unspecified (ICD-10) Coronary artery disease ?I25.10 - Atherosclerotic heart disease of [place] coronary artery without angina pectoris (ICD-10) Ischemic cardiomyopathy ?I25.5 - Ischemic cardiomyopathy (ICD-10) <Zoë Scott MD - Last Filed: 11/29/24 14:36> Social History: Social History Smoking Status: Current some day smoker <Zoë Scott MD - Last Filed: 11/29/24 14:36> Exam Narrative: Exam Narrative: Alert and oriented. Very pleasant woman. Does smell slightly of cigarettes. External ears eyes nose clear. Oral cavity with moist mucous membranes. Neck is supple without lymphadenopathy. Heart with a bradycardic rate normal rhythm. Lungs are clear. Abdomen shows tenderness in the epigastrium right upper quadrant and right lateral abdomen. No masses are palpated. Moving all extremities. No peritoneal signs. <Zoë Scott MD - Last Filed: 11/29/24 14:36> Const: Vital Signs, click to edit/add: Vital Signs - 24 hr 11/28/24 20:12 11/28/24 22:03 11/28/24 22:04 Temperature 98.3 F Pulse Rate Pulse Rate [Pulse Oximeter] 56 L Respiratory Rate 16 17 20 Blood Pressure 107/67 Blood Pressure [Ri ght Upper Arm] 102/71 Pulse Oximetry 99 Oxygen Delivery Me thod Room Air 11/28/24 22:36 11/28/24 22:37 11/28/24 22:45 Temperature Pulse Rate 64 52 L Pulse Rate [Pulse Oximeter] Respiratory Rate 20 11 L 18 Blood Pressure 116/60 Blood Pressure [Ri ght Upper Arm] Pulse Oximetry 93 97 Oxygen Delivery Me thod 11/28/24 23:00 11/28/24 23:02 11/28/24 23:15 Temperature Pulse Rate 50 L 50 L 53 L Pulse Rate [Pulse Oximeter] Respiratory Rate 16 Blood Pressure 115/58 L Blood Pressure [Ri ght Upper Arm] Pulse Oximetry 98 97 98 Oxygen Delivery Pr thod 11/28/24 23:30 11/28/24 23:33 11/28/24 23:45 Temperature Pulse Rate 49 L 55 L 51 L Pulse Rate [Pulse Oximeter] Respiratory Rate 21 32 H 21 Blood Pressure 101/65 Blood Pressure [Ri ght Upper Arm] Pulse Oximetry 96 99 97 Oxygen Delivery Pr thod 11/29/24 00:00 11/29/24 00:02 11/29/24 00:02 Temperature Pulse Rate 56 L 56 L 56 L Pulse Rate [Pulse Oximeter] Respiratory Rate 21 35 H 35 H Blood Pressure 118/72 118/72 Blood Pressure [Ri ght Upper Arm] Pulse Oximetry 96 94 94 [facility] 11/29/24 00:02 11/29/24 00:03 11/29/24 00:10 Temperature Pulse Rate 56 L 56 L Pulse Rate [Pulse Oximeter] Respiratory Rate 35 H 24 21 Blood Pressure 118/72 Blood Pressure [Ri ght Upper Arm] Pulse Oximetry 94 96 94 Oxygen Delivery [facility] 11/29/24 00:15 11/29/24 00:20 11/29/24 00:30 Temperature Pulse Rate 52 L 51 L Pulse Rate [Pulse Oximeter] Respiratory Rate 3 L 18 19 Blood Pressure Blood Pressure [Ri ght Upper Arm] Pulse Oximetry 95 94 Oxygen Delivery [facility] 11/29/24 00:32 11/29/24 00:40 11/29/24 00:45 Temperature Pulse Rate 50 L 50 L Pulse Rate [Pulse Oximeter] Respiratory Rate 23 25 H 12 Blood Pressure 112/62 Blood Pressure [Ri ght Upper Arm] Pulse Oximetry 94 98 96 Oxygen Delivery [facility] 11/29/24 00:50 11/29/24 01:00 11/29/24 01:02 Temperature Pulse Rate 55 L 54 L Pulse Rate [Pulse Oximeter] Respiratory Rate 22 15 17 Blood Pressure 118/73 Blood Pressure [Ri ght Upper Arm] Pulse Oximetry 97 96 97 Oxygen Delivery [facility] 11/29/24 01:02 11/29/24 01:10 11/29/24 01:15 Temperature Pulse Rate 54 L 52 L Pulse Rate [Pulse Oximeter] Respiratory Rate 17 28 H 18 Blood Pressure 118/73 Blood Pressure [Ri ght Upper Arm] Pulse Oximetry 97 96 96 Oxygen Delivery [facility] 11/29/24 01:20 11/29/24 01:30 11/29/24 01:34 Temperature Pulse Rate 53 L 56 L Pulse Rate [Pulse Oximeter] Respiratory Rate 20 21 19 Blood Pressure 110/63 Blood Pressure [Ri ght Upper Arm] Pulse Oximetry 96 95 97 Oxygen Delivery Me thod 11/29/24 01:35 11/29/24 01:40 11/29/24 01:45 Temperature Pulse Rate 57 L 58 L Pulse Rate [Pulse Oximeter] Respiratory Rate 32 H 26 H 34 H Blood Pressure Blood Pressure [Ri ght Upper Arm] Pulse Oximetry 97 98 96 Oxygen Delivery Me thod 11/29/24 01:50 11/29/24 02:00 11/29/24 02:02 Temperature Pulse Rate 56 L 55 L Pulse Rate [Pulse Oximeter] Respiratory Rate 24 22 20 Blood Pressure 122/76 Blood Pressure [Ri ght Upper Arm] Pulse Oximetry 97 97 97 Oxygen Delivery Me thod 11/29/24 02:10 11/29/24 02:15 11/29/24 02:40 Temperature Pulse Rate 66 Pulse Rate [Pulse Oximeter] Respiratory Rate 22 30 H 41 H Blood Pressure Blood Pressure [Ri ght Upper Arm] Pulse Oximetry 97 97 Oxygen Delivery Me thod 11/29/24 02:45 11/29/24 02:50 11/29/24 03:00 Temperature Pulse Rate 67 55 L Pulse Rate [Pulse Oximeter] Respiratory Rate 18 16 18 Blood Pressure Blood Pressure [Ri ght Upper Arm] Pulse Oximetry 97 97 97 Oxygen Delivery Me thod 11/29/24 03:02 11/29/24 03:10 11/29/24 03:15 Temperature Pulse Rate 56 L 53 L Pulse Rate [Pulse Oximeter] Respiratory Rate 12 9 L 22 Blood Pressure 126/75 Blood Pressure [Ri ght Upper Arm] Pulse Oximetry 98 96 97 Oxygen Delivery Me thod 11/29/24 03:20 11/29/24 03:30 11/29/24 03:40 Temperature Pulse Rate 51 L Pulse Rate [Pulse Oximeter] Respiratory Rate 22 22 22 Blood Pressure Blood Pressure [Ri ght Upper Arm] Pulse Oximetry 94 95 95 Oxygen Delivery Me thod 11/29/24 03:45 11/29/24 03:50 11/29/24 04:00 Temperature Pulse Rate 54 L 57 L Pulse Rate [Pulse Oximeter] Respiratory Rate 18 11 L 20 Blood Pressure Blood Pressure [Ri ght Upper Arm] Pulse Oximetry 94 96 96 Oxygen Delivery Me thod 11/29/24 04:10 11/29/24 04:15 11/29/24 04:20 Temperature Pulse Rate 63 Pulse Rate [Pulse Oximeter] Respiratory Rate 23 28 H 22 Blood Pressure Blood Pressure [Ri ght Upper Arm] Pulse Oximetry 97 96 97 Oxygen Delivery Me thod 11/29/24 04:30 11/29/24 04:40 11/29/24 04:50 Temperature Pulse Rate 52 L Pulse Rate [Pulse Oximeter] Respiratory Rate 20 22 Blood Pressure Blood Pressure [Ri ght Upper Arm] Pulse Oximetry 97 94 97 Oxygen Delivery Me thod 11/29/24 05:00 11/29/24 05:05 11/29/24 05:10 Temperature Pulse Rate 52 L 54 L Pulse Rate [Pulse Oximeter] Respiratory Rate 19 19 17 Blood Pressure Blood Pressure [Ri ght Upper Arm] Pulse Oximetry 97 95 97 Oxygen Delivery Me thod 11/29/24 05:15 11/29/24 05:22 11/29/24 05:30 Temperature Pulse Rate 53 L 52 L Pulse Rate [Pulse Oximeter] Respiratory Rate 18 25 H 17 Blood Pressure Blood Pressure [Ri ght Upper Arm] Pulse Oximetry 96 95 Oxygen Delivery Me thod 11/29/24 05:40 11/29/24 05:45 11/29/24 05:50 Temperature Pulse Rate 53 L Pulse Rate [Pulse Oximeter] Respiratory Rate 18 16 33 H Blood Pressure Blood Pressure [Ri ght Upper Arm] Pulse Oximetry 95 95 Oxygen Delivery Me thod 11/29/24 06:00 11/29/24 06:05 11/29/24 06:10 Temperature Pulse Rate 59 L 55 L Pulse Rate [Pulse Oximeter] Respiratory Rate 21 17 12 Blood Pressure Blood Pressure [Ri ght Upper Arm] Pulse Oximetry 96 95 95 Oxygen Delivery Me thod 11/29/24 06:15 11/29/24 06:20 11/29/24 06:30 Temperature Pulse Rate 53 L 61 Pulse Rate [Pulse Oximeter] Respiratory Rate 19 18 18 Blood Pressure Blood Pressure [Ri ght Upper Arm] Pulse Oximetry 96 97 94 Oxygen Delivery Me thod 11/29/24 06:40 11/29/24 06:45 11/29/24 06:50 Temperature Pulse Rate 57 L Pulse Rate [Pulse Oximeter] Respiratory Rate 8 L 16 19 Blood Pressure Blood Pressure [Ri ght Upper Arm] Pulse Oximetry 98 98 96 [facility] Delivery [facility] 11/29/24 07:00 11/29/24 07:05 11/29/24 07:10 Temperature Pulse Rate 63 60 Pulse Rate [Pulse Oximeter] Respiratory Rate 10 L Blood Pressure Blood Pressure [Ri ght Upper Arm] Pulse Oximetry 93 100 Oxygen Delivery [facility] 11/29/24 07:15 11/29/24 07:20 11/29/24 07:30 Temperature Pulse Rate 56 L 58 L Pulse Rate [Pulse Oximeter] Respiratory Rate 17 22 Blood Pressure Blood Pressure [Ri ght Upper Arm] Pulse Oximetry 97 96 Oxygen Delivery [facility] 11/29/24 07:40 11/29/24 07:45 11/29/24 07:50 Temperature Pulse Rate 62 Pulse Rate [Pulse Oximeter] Respiratory Rate 16 23 Blood Pressure Blood Pressure [Ri ght Upper Arm] Pulse Oximetry 96 98 Oxygen Delivery [facility] 11/29/24 08:00 11/29/24 08:04 11/29/24 08:10 Temperature Pulse Rate 55 L 57 L Pulse Rate [Pulse Oximeter] Respiratory Rate 13 Blood Pressure 120/66 Blood Pressure [Ri ght Upper Arm] Pulse Oximetry 98 97 99 Oxygen Delivery [facility] 11/29/24 08:15 11/29/24 08:20 11/29/24 08:30 Temperature Pulse Rate 55 L 54 L Pulse Rate [Pulse Oximeter] Respiratory Rate 11 L 12 Blood Pressure Blood Pressure [Ri ght Upper Arm] Pulse Oximetry 98 95 97 Oxygen Delivery [facility] 11/29/24 08:40 11/29/24 08:45 11/29/24 08:50 Temperature Pulse Rate 58 L Pulse Rate [Pulse Oximeter] Respiratory Rate 24 16 16 Blood Pressure Blood Pressure [Ri ght Upper Arm] Pulse Oximetry 93 96 Oxygen Delivery [facility] 11/29/24 09:00 11/29/24 09:10 11/29/24 09:15 Temperature Pulse Rate 51 L 51 L Pulse Rate [Pulse Oximeter] Respiratory Rate 15 16 14 Blood Pressure Blood Pressure [Ri ght Upper Arm] Pulse Oximetry 95 99 95 Oxygen Delivery [facility] 11/29/24 09:20 11/29/24 09:30 11/29/24 09:40 Temperature Pulse Rate 52 L Pulse Rate [Pulse Oximeter] Respiratory Rate 8 L 18 Blood Pressure Blood Pressure [Ri ght Upper Arm] Pulse Oximetry 96 96 98 Oxygen Delivery Me thod 11/29/24 09:45 11/29/24 09:50 11/29/24 10:12 Temperature Pulse Rate 56 L Pulse Rate [Pulse Oximeter] Respiratory Rate 16 29 H Blood Pressure Blood Pressure [Ri ght Upper Arm] Pulse Oximetry 92 93 Oxygen Delivery Me thod 11/29/24 10:15 11/29/24 10:20 11/29/24 10:30 Temperature Pulse Rate 59 L 52 L Pulse Rate [Pulse Oximeter] Respiratory Rate 24 19 16 Blood Pressure Blood Pressure [Ri ght Upper Arm] Pulse Oximetry 96 97 96 Oxygen Delivery Me thod 11/29/24 10:40 11/29/24 10:45 11/29/24 10:50 Temperature Pulse Rate 58 L Pulse Rate [Pulse Oximeter] Respiratory Rate 19 12 18 Blood Pressure Blood Pressure [Ri ght Upper Arm] Pulse Oximetry 96 96 95 Oxygen Delivery Me thod 11/29/24 11:00 11/29/24 11:10 11/29/24 11:15 Temperature Pulse Rate 53 L 56 L Pulse Rate [Pulse Oximeter] Respiratory Rate 18 15 18 Blood Pressure Blood Pressure [Ri ght Upper Arm] Pulse Oximetry 94 96 96 Oxygen Delivery Me thod 11/29/24 11:20 11/29/24 11:30 11/29/24 11:41 Temperature Pulse Rate Pulse Rate [Pulse Oximeter] Respiratory Rate 18 8 L 21 Blood Pressure Blood Pressure [Ri ght Upper Arm] Pulse Oximetry 94 93 Oxygen Delivery Me thod 11/29/24 11:50 11/29/24 11:55 11/29/24 12:00 Temperature Pulse Rate Pulse Rate [Pulse Oximeter] 56 L Respiratory Rate 20 21 23 Blood Pressure Blood Pressure [Ri ght Upper Arm] 121/79 Pulse Oximetry 96 96 97 Oxygen Delivery Me od Room Air 11/29/24 12:10 Temperature Pulse Rate Pulse Rate [Pulse Oximeter] Respiratory Rate 10 L Blood Pressure Blood Pressure [Ri ght Upper Arm] Pulse Oximetry 97 Oxygen Delivery Me thod <Zoë Scott MD - Last Filed: 11/29/24 14:36> Vital Signs, click to edit/add: Vital Signs - 24 hr 11/28/24 20:12 11/28/24 22:03 11/28/24 22:04 Temperature 98.3 F Pulse Rate Pulse Rate [Pulse Oximeter] 56 L Respiratory Rate 16 17 20 Blood Pressure 107/67 Blood Pressure [Ri ght Upper Arm] 102/71 Pulse Oximetry 99 Oxygen Delivery [facility] Room Air 11/28/24 22:36 11/28/24 22:37 11/28/24 22:45 Temperature Pulse Rate 64 52 L Pulse Rate [Pulse Oximeter] Respiratory Rate 20 11 L 18 Blood Pressure 116/60 Blood Pressure [Ri ght Upper Arm] Pulse Oximetry 93 97 Oxygen Delivery Me thod 11/28/24 23:00 11/28/24 23:02 11/28/24 23:15 Temperature Pulse Rate 50 L 50 L 53 L Pulse Rate [Pulse Oximeter] Respiratory Rate 16 Blood Pressure 115/58 L Blood Pressure [Ri ght Upper Arm] Pulse Oximetry 98 97 98 Oxygen Delivery [facility] 11/28/24 23:30 11/28/24 23:33 11/28/24 23:45 Temperature Pulse Rate 49 L 55 L 51 L Pulse Rate [Pulse Oximeter] Respiratory Rate 21 32 H 21 Blood Pressure 101/65 Blood Pressure [Ri ght Upper Arm] Pulse Oximetry 96 99 97 Oxygen Delivery Me od 11/29/24 00:00 11/29/24 00:02 11/29/24 00:02 Temperature Pulse Rate 56 L 56 L 56 L Pulse Rate [Pulse Oximeter] Respiratory Rate 21 35 H 35 H Blood Pressure 118/72 118/72 Blood Pressure [Ri ght Upper Arm] Pulse Oximetry 96 94 94 Oxygen Delivery [facility] 11/29/24 00:02 11/29/24 00:03 11/29/24 00:10 Temperature Pulse Rate 56 L 56 L Pulse Rate [Pulse Oximeter] Respiratory Rate 35 H 24 21 Blood Pressure 118/72 Blood Pressure [Ri ght Upper Arm] Pulse Oximetry 94 96 94 Oxygen Delivery [facility] 11/29/24 00:15 11/29/24 00:20 11/29/24 00:30 Temperature Pulse Rate 52 L 51 L Pulse Rate [Pulse Oximeter] Respiratory Rate 3 L 18 19 Blood Pressure Blood Pressure [Ri ght Upper Arm] Pulse Oximetry 95 94 Oxygen Delivery [facility] 11/29/24 00:32 11/29/24 00:40 11/29/24 00:45 Temperature Pulse Rate 50 L 50 L Pulse Rate [Pulse Oximeter] Respiratory Rate 23 25 H 12 Blood Pressure 112/62 Blood Pressure [Ri ght Upper Arm] Pulse Oximetry 94 98 96 Oxygen Delivery Me thod 11/29/24 00:50 11/29/24 01:00 11/29/24 01:02 Temperature Pulse Rate 55 L 54 L Pulse Rate [Pulse Oximeter] Respiratory Rate 22 15 17 Blood Pressure 118/73 Blood Pressure [Ri ght Upper Arm] Pulse Oximetry 97 96 97 Oxygen Delivery Me thod 11/29/24 01:02 11/29/24 01:10 11/29/24 01:15 Temperature Pulse Rate 54 L 52 L Pulse Rate [Pulse Oximeter] Respiratory Rate 17 28 H 18 Blood Pressure 118/73 Blood Pressure [Ri ght Upper Arm] Pulse Oximetry 97 96 96 Oxygen Delivery Me thod 11/29/24 01:20 11/29/24 01:30 11/29/24 01:34 Temperature Pulse Rate 53 L 56 L Pulse Rate [Pulse Oximeter] Respiratory Rate 20 21 19 Blood Pressure 110/63 Blood Pressure [Ri ght Upper Arm] Pulse Oximetry 96 95 97 Oxygen Delivery Me thod 11/29/24 01:35 11/29/24 01:40 11/29/24 01:45 Temperature Pulse Rate 57 L 58 L Pulse Rate [Pulse Oximeter] Respiratory Rate 32 H 26 H 34 H Blood Pressure Blood Pressure [Ri ght Upper Arm] Pulse Oximetry 97 98 96 Oxygen Delivery Me thod 11/29/24 01:50 11/29/24 02:00 11/29/24 02:02 Temperature Pulse Rate 56 L 55 L Pulse Rate [Pulse Oximeter] Respiratory Rate 24 22 20 Blood Pressure 122/76 Blood Pressure [Ri ght Upper Arm] Pulse Oximetry 97 97 97 Oxygen Delivery Me thod 11/29/24 02:10 11/29/24 02:15 11/29/24 02:40 Temperature Pulse Rate 66 Pulse Rate [Pulse Oximeter] Respiratory Rate 22 30 H 41 H Blood Pressure Blood Pressure [Ri ght Upper Arm] Pulse Oximetry 97 97 Oxygen Delivery Me thod 11/29/24 02:45 11/29/24 02:50 11/29/24 03:00 Temperature Pulse Rate 67 55 L Pulse Rate [Pulse Oximeter] Respiratory Rate 18 16 18 Blood Pressure Blood Pressure [Ri ght Upper Arm] Pulse Oximetry 97 97 97 Oxygen Delivery Pr thod 11/29/24 03:02 11/29/24 03:10 11/29/24 03:15 Temperature Pulse Rate 56 L 53 L Pulse Rate [Pulse Oximeter] Respiratory Rate 12 9 L 22 Blood Pressure 126/75 Blood Pressure [Ri ght Upper Arm] Pulse Oximetry 98 96 97 Oxygen Delivery Pr thod 11/29/24 03:20 11/29/24 03:30 11/29/24 03:40 Temperature Pulse Rate 51 L Pulse Rate [Pulse Oximeter] Respiratory Rate 22 22 22 Blood Pressure Blood Pressure [Ri ght Upper Arm] Pulse Oximetry 94 95 95 Oxygen Delivery Pr thod 11/29/24 03:45 11/29/24 03:50 11/29/24 04:00 Temperature Pulse Rate 54 L 57 L Pulse Rate [Pulse Oximeter] Respiratory Rate 18 11 L 20 Blood Pressure Blood Pressure [Ri ght Upper Arm] Pulse Oximetry 94 96 96 Oxygen Delivery [facility] 11/29/24 04:10 11/29/24 04:15 11/29/24 04:20 Temperature Pulse Rate 63 Pulse Rate [Pulse Oximeter] Respiratory Rate 23 28 H 22 Blood Pressure Blood Pressure [Ri ght Upper Arm] Pulse Oximetry 97 96 97 Oxygen Delivery [facility] 11/29/24 04:30 11/29/24 04:40 11/29/24 04:50 Temperature Pulse Rate 52 L Pulse Rate [Pulse Oximeter] Respiratory Rate 20 22 Blood Pressure Blood Pressure [Ri ght Upper Arm] Pulse Oximetry 97 94 97 Oxygen Delivery Pr thod 11/29/24 05:00 11/29/24 05:05 11/29/24 05:10 Temperature Pulse Rate 52 L 54 L Pulse Rate [Pulse Oximeter] Respiratory Rate 19 19 17 Blood Pressure Blood Pressure [Ri ght Upper Arm] Pulse Oximetry 97 95 97 Oxygen Delivery Pr thod 11/29/24 05:15 11/29/24 05:22 11/29/24 05:30 Temperature Pulse Rate 53 L 52 L Pulse Rate [Pulse Oximeter] Respiratory Rate 18 25 H 17 Blood Pressure Blood Pressure [Ri ght Upper Arm] Pulse Oximetry 96 95 Oxygen Delivery Pr thod 11/29/24 05:40 11/29/24 05:45 11/29/24 05:50 Temperature Pulse Rate 53 L Pulse Rate [Pulse Oximeter] Respiratory Rate 18 16 33 H Blood Pressure Blood Pressure [Ri ght Upper Arm] Pulse Oximetry 95 95 Oxygen Delivery Pr thod 11/29/24 06:00 11/29/24 06:05 11/29/24 06:10 Temperature Pulse Rate 59 L 55 L Pulse Rate [Pulse Oximeter] Respiratory Rate 21 17 12 Blood Pressure Blood Pressure [Ri ght Upper Arm] Pulse Oximetry 96 95 95 Oxygen Delivery Pr thod 11/29/24 06:15 11/29/24 06:20 11/29/24 06:30 Temperature Pulse Rate 53 L 61 Pulse Rate [Pulse Oximeter] Respiratory Rate 19 18 18 Blood Pressure Blood Pressure [Ri ght Upper Arm] Pulse Oximetry 96 97 94 Oxygen Delivery [facility] 11/29/24 06:40 11/29/24 06:45 11/29/24 06:50 Temperature Pulse Rate 57 L Pulse Rate [Pulse Oximeter] Respiratory Rate 8 L 16 19 Blood Pressure Blood Pressure [Ri ght Upper Arm] Pulse Oximetry 98 98 96 Oxygen Delivery [facility] 11/29/24 07:00 11/29/24 07:05 11/29/24 07:10 Temperature Pulse Rate 63 60 Pulse Rate [Pulse Oximeter] Respiratory Rate 10 L Blood Pressure Blood Pressure [Ri ght Upper Arm] Pulse Oximetry 93 100 Oxygen Delivery [facility] 11/29/24 07:15 11/29/24 07:20 11/29/24 07:30 Temperature Pulse Rate 56 L 58 L Pulse Rate [Pulse Oximeter] Respiratory Rate 17 22 Blood Pressure Blood Pressure [Ri ght Upper Arm] Pulse Oximetry 97 96 Oxygen Delivery [facility] 11/29/24 07:40 11/29/24 07:45 11/29/24 07:50 Temperature Pulse Rate 62 Pulse Rate [Pulse Oximeter] Respiratory Rate 16 23 Blood Pressure Blood Pressure [Ri ght Upper Arm] Pulse Oximetry 96 98 Oxygen Delivery Pr thod 11/29/24 08:00 11/29/24 08:04 11/29/24 08:10 Temperature Pulse Rate 55 L 57 L Pulse Rate [Pulse Oximeter] Respiratory Rate 13 Blood Pressure 120/66 Blood Pressure [Ri ght Upper Arm] Pulse Oximetry 98 97 99 Oxygen Delivery [facility] 11/29/24 08:15 11/29/24 08:20 11/29/24 08:30 Temperature Pulse Rate 55 L 54 L Pulse Rate [Pulse Oximeter] Respiratory Rate 11 L 12 Blood Pressure Blood Pressure [Ri ght Upper Arm] Pulse Oximetry 98 95 97 Oxygen Delivery Pr thod 11/29/24 08:40 11/29/24 08:45 11/29/24 08:50 Temperature Pulse Rate 58 L Pulse Rate [Pulse Oximeter] Respiratory Rate 24 16 16 Blood Pressure Blood Pressure [Ri ght Upper Arm] Pulse Oximetry 93 96 Oxygen Delivery Pr thod 11/29/24 09:00 11/29/24 09:10 11/29/24 09:15 Temperature Pulse Rate 51 L 51 L Pulse Rate [Pulse Oximeter] Respiratory Rate 15 16 14 Blood Pressure Blood Pressure [Ri ght Upper Arm] Pulse Oximetry 95 99 95 Oxygen Delivery Pr thod 11/29/24 09:20 11/29/24 09:30 11/29/24 09:40 Temperature Pulse Rate 52 L Pulse Rate [Pulse Oximeter] Respiratory Rate 8 L 18 Blood Pressure Blood Pressure [Ri ght Upper Arm] Pulse Oximetry 96 96 98 Oxygen Delivery Pr thod 11/29/24 09:45 11/29/24 09:50 11/29/24 10:12 Temperature Pulse Rate 56 L Pulse Rate [Pulse Oximeter] Respiratory Rate 16 29 H Blood Pressure Blood Pressure [Ri ght Upper Arm] Pulse Oximetry 92 93 Oxygen Delivery Pr thod 11/29/24 10:15 11/29/24 10:20 11/29/24 10:30 Temperature Pulse Rate 59 L 52 L Pulse Rate [Pulse Oximeter] Respiratory Rate 24 19 16 Blood Pressure Blood Pressure [Ri ght Upper Arm] Pulse Oximetry 96 97 96 Oxygen Delivery Pr thod 11/29/24 10:40 11/29/24 10:45 11/29/24 10:50 Temperature Pulse Rate 58 L Pulse Rate [Pulse Oximeter] Respiratory Rate 19 12 18 Blood Pressure Blood Pressure [Ri ght Upper Arm] Pulse Oximetry 96 96 95 Oxygen Delivery Pr thod 11/29/24 11:00 11/29/24 11:10 11/29/24 11:15 Temperature Pulse Rate 53 L 56 L Pulse Rate [Pulse Oximeter] Respiratory Rate 18 15 18 Blood Pressure Blood Pressure [Ri ght Upper Arm] Pulse Oximetry 94 96 96 Oxygen Delivery Pr thod 11/29/24 11:20 11/29/24 11:30 11/29/24 11:41 Temperature Pulse Rate Pulse Rate [Pulse Oximeter] Respiratory Rate 18 8 L 21 Blood Pressure Blood Pressure [Ri ght Upper Arm] Pulse Oximetry 94 93 Oxygen Delivery Me thod 11/29/24 11:50 11/29/24 11:55 11/29/24 12:00 Temperature Pulse Rate Pulse Rate [Pulse Oximeter] 56 L Respiratory Rate 20 21 23 Blood Pressure Blood Pressure [Ri ght Upper Arm] 121/79 Pulse Oximetry 96 96 97 Oxygen Delivery Me thod Room Air 11/29/24 12:10 Temperature Pulse Rate Pulse Rate [Pulse Oximeter] Respiratory Rate 10 L Blood Pressure Blood Pressure [Ri ght Upper Arm] Pulse Oximetry 97 Oxygen Delivery Me thod <Alexus Renee MD - Last Filed: 12/04/24 23:55> Documenting provider has reviewed patient's vital signs: yes <Zoë Scott MD - Last Filed: 11/29/24 14:36> Course Course ED Course: Differential diagnosis includes but is not limited to biliary colic, bowel obstruction, H pylori, gastritis, ischemic bowel. Will place patient on electrical accessories assembler and draw CBC, comprehensive, lactate, troponin, CRP, lipase. Plan on CT of the chest abdomen and pelvis with IV contrast. Have also ordered 1 L of normal saline given pending CT. Patient declines any pain medications at this time. <Zoë Scott MD - Last Filed: 11/29/24 14:36> Reevaluation(s) Time of Reevaluation #1: 07:57 <Alexus Renee MD - Last Filed: 12/04/24 23:55> Reevaluation #1: Dr. Renee: No further issues overnight. Morning troponin is trending back to normal. EKG and electrical accessories assembler remained stable. Patient remains on heparin drip. Ending care over to incoming day shift partner. We are anticipating transfer within the next couple of hours. <Alexus Renee MD - Last Filed: 12/04/24 23:55> Vital Signs Vital signs: Initial Vital Signs Temperature 98.3 F 11/28/24 20:12 Temperature Source Temporal Artery Scan 11/28/24 20:12 Pulse Rate 56 L 11/28/24 20:12 Respiratory Rate 16 11/28/24 20:12 Blood Pressure 102/71 11/28/24 20:12 Blood Pressure Mean 81 11/28/24 20:12 Blood Pressure Position Sitting 11/28/24 20:12 Pulse Oximetry 99 11/28/24 20:12 Oxygen Delivery Method Room Air 11/28/24 20:12 Vital Signs Temperature 98.3 F 11/28/24 20:12 Pulse Rate 56 L 11/28/24 20:12 Respiratory Rate 16 11/28/24 20:12 Blood Pressure 102/71 11/28/24 20:12 Pulse Oximetry 99 11/28/24 20:12 Oxygen Delivery Method Room Air 11/28/24 20:12 Temperature 98.3 F 11/28/24 20:12 Pulse Rate 56 L 11/29/24 12:00 Respiratory Rate 10 L 11/29/24 12:10 Blood Pressure 121/79 11/29/24 12:00 Pulse Oximetry 97 11/29/24 12:10 Oxygen Delivery Method Room Air 11/29/24 12:00 <Zoë Scott MD - Last Filed: 11/29/24 14:36> Initial Vital Signs Temperature 98.3 F 11/28/24 20:12 Temperature Source Temporal Artery Scan 11/28/24 20:12 Pulse Rate 56 L 11/28/24 20:12 Respiratory Rate 16 11/28/24 20:12 Blood Pressure 102/71 11/28/24 20:12 Blood Pressure Mean 81 11/28/24 20:12 Blood Pressure Position Sitting 11/28/24 20:12 Pulse Oximetry 99 11/28/24 20:12 Oxygen Delivery Method Room Air 11/28/24 20:12 Vital Signs Temperature 98.3 F 11/28/24 20:12 Pulse Rate 56 L 11/28/24 20:12 Respiratory Rate 16 11/28/24 20:12 Blood Pressure 102/71 11/28/24 20:12 Pulse Oximetry 99 11/28/24 20:12 Oxygen Delivery Method Room Air 11/28/24 20:12 Temperature 98.3 F 11/28/24 20:12 Pulse Rate 56 L 11/29/24 12:00 Respiratory Rate 10 L 11/29/24 12:10 Blood Pressure 121/79 11/29/24 12:00 Pulse Oximetry 97 11/29/24 12:10 Oxygen Delivery Method Room Air 11/29/24 12:00 <Alexus Renee MD - Last Filed: 12/04/24 23:55> Medications Administered Medications: Discontinued Medications Generic Name Dose Route Start Last Admin Trade Name Freq PRN Reason Stop Dose Admin Aspirin 324 mg 11/29/24 02:34 11/29/24 02:40 Aspirin 81 Mg Tab.Chew PO 11/29/24 02:35 324 mg ONCE ONE Administration Cephalexin HCl 500 mg 11/29/24 01:46 11/29/24 01:50 Cephalexin 500 Mg Capsule PO 11/29/24 01:47 500 mg ONCE ONE Administration Cephalexin HCl 500 mg 11/29/24 08:56 11/29/24 08:44 Cephalexin 500 Mg Capsule PO 11/29/24 08:57 500 mg ONCE ONE Administration Furosemide 40 mg 11/29/24 02:48 11/29/24 03:24 Furosemide 10 Mg/Ml Inj IVP 11/29/24 02:49 40 mg ONCE ONE Administration Heparin Sodium (Porcine) 3,800 unit 11/29/24 02:48 11/29/24 03:27 Heparin 5,000 Unit/0.5 Ml Inj 60 unit/kg (3800 unit) 11/29/24 02:49 3,800 unit IVP Administration ONCE ONE Sodium Chloride 1,000 mls @ 1,000 mls/hr 11/28/24 20:32 11/28/24 22:39 0.9 % Sodium Chloride 1000 Ml IV 11/28/24 21:31 Infused .Q1H RANDY Infusion Heparin Sodium/Dextrose 25,000 unit in 500 mls @ 0 mls/hr 11/29/24 03:00 11/29/24 11:50 Heparin IV 500 unit/hr .Q0M RANDY 10 mls/hr Protocol Infusion Per Protocol <Zoë Scott MD - Last Filed: 11/29/24 14:36> Discontinued Medications Generic Name Dose Route Start Last Admin Trade Name Freq PRN Reason Stop Dose Admin Aspirin 324 mg 11/29/24 02:34 11/29/24 02:40 Aspirin 81 Mg Tab.Chew PO 11/29/24 02:35 324 mg ONCE ONE Administration Cephalexin HCl 500 mg 11/29/24 01:46 11/29/24 01:50 Cephalexin 500 Mg Capsule PO 11/29/24 01:47 500 mg ONCE ONE Administration Cephalexin HCl 500 mg 11/29/24 08:56 11/29/24 08:44 Cephalexin 500 Mg Capsule PO 11/29/24 08:57 500 mg ONCE ONE Administration Furosemide 40 mg 11/29/24 02:48 11/29/24 03:24 Furosemide 10 Mg/Ml Inj IVP 11/29/24 02:49 40 mg ONCE ONE Administration Heparin Sodium (Porcine) 3,800 unit 11/29/24 02:48 11/29/24 03:27 Heparin 5,000 Unit/0.5 Ml Inj 60 unit/kg (3800 unit) 11/29/24 02:49 3,800 unit IVP Administration ONCE ONE Sodium Chloride 1,000 mls @ 1,000 mls/hr 11/28/24 20:32 11/28/24 22:39 0.9 % Sodium Chloride 1000 Ml IV 11/28/24 21:31 Infused .Q1H RANDY Infusion Heparin Sodium/Dextrose 25,000 unit in 500 mls @ 0 mls/hr 11/29/24 03:00 11/29/24 11:50 Heparin IV 500 unit/hr .Q0M RANDY 10 mls/hr Protocol Infusion Per Protocol <Alexus Renee MD - Last Filed: 12/04/24 23:55> MDM - Abdominal Pain MDM Narrative Medical decision making narrative: 1. Abdominal pain-thickened gallbladder wall at [address] and ultrasound confirm pericholecystic fluid mild. No evidence of gallstones. White count, liver function tests and CRP within normal limits. Abdominal pain especially postprandial likely secondary to biliary colic. 2. Pericardial effusion with cardiomegaly-likely chronic but proBNP is elevated at 7600. Also noted is a small right-sided pleural effusion. Oxygen saturations within normal limits. Patient is experiencing shortness of breath with activity. Initial troponin negative. Second troponin pending. Patient notes that she still has shortness of breath but states that this is chronic and much improved from earlier this evening. EKG with sinus rhythm with some evidence of an intraventricular block but no acute ST or T-wave changes. Unfortunately do not have EKG for comparison. 3. Pulmonary nodule-measuring 4 mm. Will need repeat CT in 12 months as she is a smoker and at higher risk. 4. Pulmonary hypertension-enlarged pulmonary artery at 3.4 cm. 5. Emphysema -patient smokes approximately 3 cigarettes daily. 6. UTI-patient declines IV Rocephin for treatment. Will treat with Keflex 500 mg b.i.d. 7. Disposition-likely transfer to tertiary care for surgical consult/biliary colic. Addendum: 2nd troponin comes back positive at 0.13. Patient has some baseline shortness of breath but no chest pain at this time. assignment manager has shown a sinus bradycardia in the mid to upper 50s. At this time will contact [facility] for transfer. Update: [facility] does not have any cardiology beds at this time but are willing to place this on their wait list. I stated that I would call them back once I had a chance to talk to the patient. I have spoken to the patient about other tertiary care and she declines. She is hoping that she can go home and then await a phone call from self daily when they have an open bed. Headed explained that unfortunately it does not work like that. Have stated that right now she is stable and certainly we could have her stay overnight, recheck cardiac enzymes and then await transfer in the morning. At this time she wants to get her phone. Prior to her leaving the department-although she plans on returning- I do talk to her about risk of departing the ER which includes worsening symptoms, heart attack, possibly . She states that she does really wants to talk to her brother. She does appear to be able to make her own decisions and is not currently under the influence of alcohol or any drugs. Given the abdominal pain for 3-4 months, worsening after any food intake and now worsened discomfort in the abdomen and shortness of breath 1 May consider that the abdominal pain has actually been angina. 0240: Patient now agrees to stay in the ED. She is given aspirin 324 mg p.o.. He was able to speak to plant electrical engineer Dr. Greenberg. Does agree with heparin and we will be doing a bolus followed by infusion. Does agree with Lasix and thus will be giving 40 mg IV. Will be contacting [facility] in the morning to see if there is any bed availability. I do feel patient is stable to remain in [facility]. Patient will also receive 2nd dose of antibiotic for UTI Keflex tomorrow morning. Will sign this patient out to my colleague Dr. Renee. Kimberley remained stable overnight per report. She has diuresed well. She is noting much improvement in her shortness of breath at rest this morning. Her troponin decreased from 0.13-0.02. She is on heparin at this time. Currently awaiting transfer to [facility]. Her daughter Daphnie is present and had many questions and thus we did discuss reasons for transfer which include cardiac consult, GI consult. We also discussed the fact that Kimberley had a UTI that we are currently treating with Keflex. Both patient and her daughter appear to be understanding of need for transfer. All questions were answered. <Zoë Scott MD - Last Filed: 11/29/24 14:36> Medical Records Attestation: I reviewed the patient's medical records. <Zoë Scott MD - Last Filed: 11/29/24 14:36> Lab Data Attestation: I reviewed the patient's lab results. <Zoë Scott MD - Last Filed: 11/29/24 14:36> Labs: Lab Results 11/28/24 11/28/24 11/28/24 Range/Units 20:30 21:15 21:21 WBC 4.94 (4.50-11.00) K/uL RBC 3.80 L (4.00-5.20) m/uL Hgb 11.2 L (12.0-16.0) gm/dL Hct 35.7 (33.0-51.0) % MCV 94 (80-100) fL MCH 30 (26-34) pg MCHC 31 L (32-36) gm/dL RDW Coeff of Kim 13.9 (11.5-15.5) % Plt Count 129 L (140-440) K/uL Neut % (Auto) 64.4 (42.0-72.0) % Lymph % (Auto) 24.5 (20-44) % [place] % (Auto) 8.7 (0.0-11.0) % Eos % (Auto) 1.6 (0.0-7.0) % Baso % (Auto) 0.6 (0.0-3.0) % Neut # (Auto) 3.18 (1.7-7.0) K/uL Lymph # (Auto) 1.21 (0.90-2.90) K/uL [place] # (Auto) 0.40 (0.00-0.90) K/UL Eos # (Auto) 0.08 (0.00-0.50) K/uL Baso # (Auto) 0.03 (0.00-0.30) K/uL Abs Immat Gran (auto) 0.01 (0.00-0.30) K/uL Imm/Tot Granulo (auto) 0.2 % APTT (23-33) Seconds Sodium 135 (135-149) mmol/L Potassium 4.0 (3.6-5.1) mmol/L Chloride 104 (96-114) mmol/L Carbon Dioxide 24 (20-32) mmol/L Anion Gap 7 (7-15) mEq/L BUN 11 (7-30) mg/dL Creatinine 1.0 (0.5-1.5) mg/dL Estimated Creat Clear 40.63 Estimated GFR 61 ml/min Glucose 110 (60-115) mg/dL Lactate 1.1 (0.5-1.9) mmol/L Calcium 8.9 (8.4-10.6) mg/dL Magnesium 2.0 (1.5-2.6) mg/dL Total Bilirubin 0.7 (0.1-1.5) mg/dL AST 21 (12-35) U/L ALT 11 (4-35) U/L Alkaline Phosphatase 47 (40-150) U/L Troponin I 0.01 (0.01-0.04) ng/mL C-Reactive Protein < 0.5 L (0.5-1.0) mg/dL NT-Pro-B Natriuret Pep 7580 H (See Note) pg/mL Total Protein 6.6 (6.0-8.3) g/dL Albumin 3.9 (3.3-5.0) g/dL Lipase 63 (23-300) U/L Urine Color Yellow (Yellow) Urine Appearance Slightly Cloudy A (Clear) Urine pH 7.0 (5.0-8.5) Ur Specific Beryl 1.010 (1.000-1.030) Urine Protein Negative (Negative) Urine Glucose (UA) Negative (Negative) Urine Ketones Negative (Negative) Urine Blood 2+ A (Negative) Urine Nitrite Positive A (Negative) Urine Bilirubin Negative (Negative) Urine Urobilinogen 1.0 (0.2-1.0) Ur Leukocyte Esterase 1+ A (Negative) Urine RBC 0-2 (0-2) Urine WBC 10-25 A (0-5) Ur Squamous Epith Cells Few (None-Few) Urine Bacteria Moderate A (None) Urine Yeast Few A (None) Lab Acknowledgement POC Creatinine 1.1 (0.6-1.3) mg/dl POC Troponin I (0.01-0.04) ng/ml 11/29/24 11/29/24 11/29/24 Range/Units 00:48 00:59 07:36 WBC (4.50-11.00) K/uL RBC (4.00-5.20) m/uL Hgb (12.0-16.0) gm/dL Hct (33.0-51.0) % MCV (80-100) fL MCH (26-34) pg MCHC (32-36) gm/dL RDW Coeff of Kim (11.5-15.5) % Plt Count (140-440) K/uL Neut % (Auto) (42.0-72.0) % Lymph % (Auto) (20-44) % [place] % (Auto) (0.0-11.0) % Eos % (Auto) (0.0-7.0) % Baso % (Auto) (0.0-3.0) % Neut # (Auto) (1.7-7.0) K/uL Lymph # (Auto) (0.90-2.90) K/uL [place] # (Auto) (0.00-0.90) K/UL Eos # (Auto) (0.00-0.50) K/uL Baso # (Auto) (0.00-0.30) K/uL Abs Immat Gran (auto) (0.00-0.30) K/uL Imm/Tot Granulo (auto) % APTT (23-33) Seconds Sodium (135-149) mmol/L Potassium (3.6-5.1) mmol/L Chloride (96-114) mmol/L Carbon Dioxide (20-32) mmol/L Anion Gap (7-15) mEq/L BUN (7-30) mg/dL Creatinine (0.5-1.5) mg/dL Estimated Creat Clear Estimated GFR ml/min Glucose (60-115) mg/dL Lactate (0.5-1.9) mmol/L Calcium (8.4-10.6) mg/dL Magnesium (1.5-2.6) mg/dL Total Bilirubin (0.1-1.5) mg/dL AST (12-35) U/L ALT (4-35) U/L Alkaline Phosphatase (40-150) U/L Troponin I (0.01-0.04) ng/mL C-Reactive Protein (0.5-1.0) mg/dL NT-Pro-B Natriuret Pep (See Note) pg/mL Total Protein (6.0-8.3) g/dL Albumin (3.3-5.0) g/dL Lipase (23-300) U/L Urine Color (Yellow) Urine Appearance (Clear) Urine pH (5.0-8.5) Ur Specific Beryl (1.000-1.030) Urine Protein (Negative) Urine Glucose (UA) (Negative) Urine Ketones (Negative) Urine Blood (Negative) Urine Nitrite (Negative) Urine Bilirubin (Negative) Urine Urobilinogen (0.2-1.0) Ur Leukocyte Esterase (Negative) Urine RBC (0-2) Urine WBC (0-5) Ur Squamous Epith Cells (None-Few) Urine Bacteria (None) Urine Yeast (None) Lab Acknowledgement Test Added POC Creatinine (0.6-1.3) mg/dl POC Troponin I 0.13 H 0.02 (0.01-0.04) ng/ml 11/29/24 11/29/24 Range/Units 10:05 14:34 WBC (4.50-11.00) K/uL RBC (4.00-5.20) m/uL Hgb (12.0-16.0) gm/dL Hct (33.0-51.0) % MCV (80-100) fL MCH (26-34) pg MCHC (32-36) gm/dL RDW Coeff of Kim (11.5-15.5) % Plt Count (140-440) K/uL Neut % (Auto) (42.0-72.0) % Lymph % (Auto) (20-44) % [place] % (Auto) (0.0-11.0) % Eos % (Auto) (0.0-7.0) % Baso % (Auto) (0.0-3.0) % Neut # (Auto) (1.7-7.0) K/uL Lymph # (Auto) (0.90-2.90) K/uL [place] # (Auto) (0.00-0.90) K/UL Eos # (Auto) (0.00-0.50) K/uL Baso # (Auto) (0.00-0.30) K/uL Abs Immat Gran (auto) (0.00-0.30) K/uL Imm/Tot Granulo (auto) % APTT 108 H* (23-33) Seconds Sodium (135-149) mmol/L Potassium (3.6-5.1) mmol/L Chloride (96-114) mmol/L Carbon Dioxide (20-32) mmol/L Anion Gap (7-15) mEq/L BUN (7-30) mg/dL Creatinine (0.5-1.5) mg/dL Estimated Creat Clear Estimated GFR ml/min Glucose (60-115) mg/dL Lactate (0.5-1.9) mmol/L Calcium (8.4-10.6) mg/dL Magnesium (1.5-2.6) mg/dL Total Bilirubin (0.1-1.5) mg/dL AST (12-35) U/L ALT (4-35) U/L Alkaline Phosphatase (40-150) U/L Troponin I (0.01-0.04) ng/mL C-Reactive Protein (0.5-1.0) mg/dL NT-Pro-B Natriuret Pep (See Note) pg/mL Total Protein (6.0-8.3) g/dL Albumin (3.3-5.0) g/dL Lipase (23-300) U/L Urine Color (Yellow) Urine Appearance (Clear) Urine pH (5.0-8.5) Ur Specific Beryl (1.000-1.030) Urine Protein (Negative) Urine Glucose (UA) (Negative) Urine Ketones (Negative) Urine Blood (Negative) Urine Nitrite (Negative) Urine Bilirubin (Negative) Urine Urobilinogen (0.2-1.0) Ur Leukocyte Esterase (Negative) Urine RBC (0-2) Urine WBC (0-5) Ur Squamous Epith Cells (None-Few) Urine Bacteria (None) Urine Yeast (None) Lab Acknowledgement Test Added POC Creatinine (0.6-1.3) mg/dl POC Troponin I (0.01-0.04) ng/ml <Zoë Scott MD - Last Filed: 11/29/24 14:36> Lab Results 11/28/24 11/28/24 11/28/24 Range/Units 20:30 21:15 21:21 WBC 4.94 (4.50-11.00) K/uL RBC 3.80 L (4.00-5.20) m/uL Hgb 11.2 L (12.0-16.0) gm/dL Hct 35.7 (33.0-51.0) % MCV 94 (80-100) fL MCH 30 (26-34) pg MCHC 31 L (32-36) gm/dL RDW Coeff of Kim 13.9 (11.5-15.5) % Plt Count 129 L (140-440) K/uL Neut % (Auto) 64.4 (42.0-72.0) % Lymph % (Auto) 24.5 (20-44) % [place] % (Auto) 8.7 (0.0-11.0) % Eos % (Auto) 1.6 (0.0-7.0) % Baso % (Auto) 0.6 (0.0-3.0) % Neut # (Auto) 3.18 (1.7-7.0) K/uL Lymph # (Auto) 1.21 (0.90-2.90) K/uL [place] # (Auto) 0.40 (0.00-0.90) K/UL Eos # (Auto) 0.08 (0.00-0.50) K/uL Baso # (Auto) 0.03 (0.00-0.30) K/uL Abs Immat Gran (auto) 0.01 (0.00-0.30) K/uL Imm/Tot Granulo (auto) 0.2 % APTT (23-33) Seconds Sodium 135 (135-149) mmol/L Potassium 4.0 (3.6-5.1) mmol/L Chloride 104 (96-114) mmol/L Carbon Dioxide 24 (20-32) mmol/L Anion Gap 7 (7-15) mEq/L BUN 11 (7-30) mg/dL Creatinine 1.0 (0.5-1.5) mg/dL Estimated Creat Clear 40.63 Estimated GFR 61 ml/min Glucose 110 (60-115) mg/dL Lactate 1.1 (0.5-1.9) mmol/L Calcium 8.9 (8.4-10.6) mg/dL Magnesium 2.0 (1.5-2.6) mg/dL Total Bilirubin 0.7 (0.1-1.5) mg/dL AST 21 (12-35) U/L ALT 11 (4-35) U/L Alkaline Phosphatase 47 (40-150) U/L Troponin I 0.01 (0.01-0.04) ng/mL C-Reactive Protein < 0.5 L (0.5-1.0) mg/dL NT-Pro-B Natriuret Pep 7580 H (See Note) pg/mL Total Protein 6.6 (6.0-8.3) g/dL Albumin 3.9 (3.3-5.0) g/dL Lipase 63 (23-300) U/L Urine Color Yellow (Yellow) Urine Appearance Slightly Cloudy A (Clear) Urine pH 7.0 (5.0-8.5) Ur Specific Beryl 1.010 (1.000-1.030) Urine Protein Negative (Negative) Urine Glucose (UA) Negative (Negative) Urine Ketones Negative (Negative) Urine Blood 2+ A (Negative) Urine Nitrite Positive A (Negative) Urine Bilirubin Negative (Negative) Urine Urobilinogen 1.0 (0.2-1.0) Ur Leukocyte Esterase 1+ A (Negative) Urine RBC 0-2 (0-2) Urine WBC 10-25 A (0-5) Ur Squamous Epith Cells Few (None-Few) Urine Bacteria Moderate A (None) Urine Yeast Few A (None) Lab Acknowledgement POC Creatinine 1.1 (0.6-1.3) mg/dl POC Troponin I (0.01-0.04) ng/ml 11/29/24 11/29/24 11/29/24 Range/Units 00:48 00:59 07:36 WBC (4.50-11.00) K/uL RBC (4.00-5.20) m/uL Hgb (12.0-16.0) gm/dL Hct (33.0-51.0) % MCV (80-100) fL MCH (26-34) pg MCHC (32-36) gm/dL RDW Coeff of Kim (11.5-15.5) % Plt Count (140-440) K/uL Neut % (Auto) (42.0-72.0) % Lymph % (Auto) (20-44) % [place] % (Auto) (0.0-11.0) % Eos % (Auto) (0.0-7.0) % Baso % (Auto) (0.0-3.0) % Neut # (Auto) (1.7-7.0) K/uL Lymph # (Auto) (0.90-2.90) K/uL [place] # (Auto) (0.00-0.90) K/UL Eos # (Auto) (0.00-0.50) K/uL Baso # (Auto) (0.00-0.30) K/uL Abs Immat Gran (auto) (0.00-0.30) K/uL Imm/Tot Granulo (auto) % APTT (23-33) Seconds Sodium (135-149) mmol/L Potassium (3.6-5.1) mmol/L Chloride (96-114) mmol/L Carbon Dioxide (20-32) mmol/L Anion Gap (7-15) mEq/L BUN (7-30) mg/dL Creatinine (0.5-1.5) mg/dL Estimated Creat Clear Estimated GFR ml/min Glucose (60-115) mg/dL Lactate (0.5-1.9) mmol/L Calcium (8.4-10.6) mg/dL Magnesium (1.5-2.6) mg/dL Total Bilirubin (0.1-1.5) mg/dL AST (12-35) U/L ALT (4-35) U/L Alkaline Phosphatase (40-150) U/L Troponin I (0.01-0.04) ng/mL C-Reactive Protein (0.5-1.0) mg/dL NT-Pro-B Natriuret Pep (See Note) pg/mL Total Protein (6.0-8.3) g/dL Albumin (3.3-5.0) g/dL Lipase (23-300) U/L Urine Color (Yellow) Urine Appearance (Clear) Urine pH (5.0-8.5) Ur Specific [place] (1.000-1.030) Urine Protein (Negative) Urine Glucose (UA) (Negative) Urine Ketones (Negative) Urine Blood (Negative) Urine Nitrite (Negative) Urine Bilirubin (Negative) Urine Urobilinogen (0.2-1.0) Ur Leukocyte Esterase (Negative) Urine RBC (0-2) Urine WBC (0-5) Ur Squamous Epith Cells (None-Few) Urine Bacteria (None) Urine Yeast (None) Lab Acknowledgement Test Added POC Creatinine (0.6-1.3) mg/dl POC Troponin I 0.13 H 0.02 (0.01-0.04) ng/ml 11/29/24 11/29/24 Range/Units 10:05 14:34 WBC (4.50-11.00) K/uL RBC (4.00-5.20) m/uL Hgb (12.0-16.0) gm/dL Hct (33.0-51.0) % MCV (80-100) fL MCH (26-34) pg MCHC (32-36) gm/dL RDW Coeff of Kim (11.5-15.5) % Plt Count (140-440) K/uL Neut % (Auto) (42.0-72.0) % Lymph % (Auto) (20-44) % [place] % (Auto) (0.0-11.0) % Eos % (Auto) (0.0-7.0) % Baso % (Auto) (0.0-3.0) % Neut # (Auto) (1.7-7.0) K/uL Lymph # (Auto) (0.90-2.90) K/uL [place] # (Auto) (0.00-0.90) K/UL Eos # (Auto) (0.00-0.50) K/uL Baso # (Auto) (0.00-0.30) K/uL Abs Immat Gran (auto) (0.00-0.30) K/uL Imm/Tot Granulo (auto) % APTT 108 H* (23-33) Seconds Sodium (135-149) mmol/L Potassium (3.6-5.1) mmol/L Chloride (96-114) mmol/L Carbon Dioxide (20-32) mmol/L Anion Gap (7-15) mEq/L BUN (7-30) mg/dL Creatinine (0.5-1.5) mg/dL Estimated Creat Clear Estimated GFR ml/min Glucose (60-115) mg/dL Lactate (0.5-1.9) mmol/L Calcium (8.4-10.6) mg/dL Magnesium (1.5-2.6) mg/dL Total Bilirubin (0.1-1.5) mg/dL AST (12-35) U/L ALT (4-35) U/L Alkaline Phosphatase (40-150) U/L Troponin I (0.01-0.04) ng/mL C-Reactive Protein (0.5-1.0) mg/dL NT-Pro-B Natriuret Pep (See Note) pg/mL Total Protein (6.0-8.3) g/dL Albumin (3.3-5.0) g/dL Lipase (23-300) U/L Urine Color (Yellow) Urine Appearance (Clear) Urine pH (5.0-8.5) Ur Specific [place] (1.000-1.030) Urine Protein (Negative) Urine Glucose (UA) (Negative) Urine Ketones (Negative) Urine Blood (Negative) Urine Nitrite (Negative) Urine Bilirubin (Negative) Urine Urobilinogen (0.2-1.0) Ur Leukocyte Esterase (Negative) Urine RBC (0-2) Urine WBC (0-5) Ur Squamous Epith Cells (None-Few) Urine Bacteria (None) Urine Yeast (None) Lab Acknowledgement Test Added POC Creatinine (0.6-1.3) mg/dl POC Troponin I (0.01-0.04) ng/ml <Alexus Renee MD - Last Filed: 12/04/24 23:55> Imaging Data CT scan - abdomen: Attestation: I have reviewed the pertinent imaging results. <Zoë Scott MD - Last Filed: 11/29/24 14:36> Radiologist's impression: Exam limited by streak artifact and motion artifact. Cardiovascular structures: Moderate cardiomegaly. Normal caliber thoracic aorta. The main pulmonary artery is enlarged measuring 3.4 cm which can be seen with pulmonary hypertension. Evaluation of the pulmonary arteries is limited by motion artifact and mixing artifact. No acute pulmonary embolism identified to the level of the segmental branches. There is reflux of contrast into the IVC. Coronary artery and aortic vascular calcifications. Mediastinum and elli: Enlarged mediastinal and bilateral hilar lymph nodes. Small pericardial effusion. Lungs and pleura: Respiratory motion artifact. Moderate upper lung predominant centrilobular emphysema. Diffuse bronchial wall thickening. Small right pleural effusion. Mild bibasilar atelectasis. No focal consolidation or pneumothorax. 4 mm noncalcified pulmonary nodule along the right major fissure (series 5 image 99). Few other tiny nodules. Chest wall: No mass or adenopathy. Left chest AICD with lead in the right ventricle. This causes streak artifact. Upper abdomen: Please refer to separate report. Bones: Mild degenerative changes of the spine. 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 Old bilateral anterior rib fractures. IMPRESSION: 1. Evaluation of the pulmonary arteries is limited by motion artifact and mixing artifact. No acute pulmonary embolism identified to the level of the segmental branches. Dilated main pulmonary artery which can be seen with pulmonary hypertension. 2. Moderate cardiomegaly with small pericardial effusion and small right pleural effusion. There is reflux of contrast into the IVC likely related to underlying right heart dysfunction. 3. Moderate emphysema with diffuse bronchial wall thickening. 4. Noncalcified pulmonary nodules measuring up to 4 mm. Please see follow-up guidelines below. 5. Mediastinal and bilateral hilar lymphadenopathy may be reactive. Follow-up is recommended. [employer] - SOLID NODULES: : MULTIPLE LOW RISK - nodule less than 6 mm: No routine follow-up. - nodule 6-8 mm: CT at 3-6 months, then consider CT at 18-24 months. - nodule greater than 8 mm: CT at 3-6 months, then consider CT at 18-24 months. MULTIPLE HIGH RISK - nodule less than 6 mm: Optional CT at 12 months. - nodule 6-8 mm: CT at 3-6 months, then at 18-24 months. - nodule greater than 8 mm: CT at 3-6 months, then at 18-24 months. <Zoë Scott MD - Last Filed: 11/29/24 14:36> CT scan - chest: Radiologist's impression: Exam limited by streak artifact and motion artifact. Cardiovascular structures: Moderate cardiomegaly. Normal caliber thoracic aorta. The main pulmonary artery is enlarged measuring 3.4 cm which can be seen with pulmonary hypertension. Evaluation of the pulmonary arteries is limited by motion artifact and mixing artifact. No acute pulmonary embolism identified to the level of the segmental branches. There is reflux of contrast into the IVC. Coronary artery and aortic vascular calcifications. Mediastinum and elli: Enlarged mediastinal and bilateral hilar lymph nodes. Small pericardial effusion. Lungs and pleura: Respiratory motion artifact. Moderate upper lung predominant centrilobular emphysema. Diffuse bronchial wall thickening. Small right pleural effusion. Mild bibasilar atelectasis. No focal consolidation or pneumothorax. 4 mm noncalcified pulmonary nodule along the right major fissure (series 5 image 99). Few other tiny nodules. Chest wall: No mass or adenopathy. Left chest AICD with lead in the right ventricle. This causes streak artifact. Upper abdomen: Please refer to separate report. Bones: Mild degenerative changes of the spine. 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 Old bilateral anterior rib fractures. IMPRESSION: 1. Evaluation of the pulmonary arteries is limited by motion artifact and mixing artifact. No acute pulmonary embolism identified to the level of the segmental branches. Dilated main pulmonary artery which can be seen with pulmonary hypertension. 2. Moderate cardiomegaly with small pericardial effusion and small right pleural effusion. There is reflux of contrast into the IVC likely related to underlying right heart dysfunction. 3. Moderate emphysema with diffuse bronchial wall thickening. 4. Noncalcified pulmonary nodules measuring up to 4 mm. Please see follow-up guidelines below. 5. Mediastinal and bilateral hilar lymphadenopathy may be reactive. Follow-up is recommended. <Zoë Scott MD - Last Filed: 11/29/24 14:36> US - abdomen: Attestation: I have reviewed the pertinent imaging results. <Zoë Scott MD - Last Filed: 11/29/24 14:36> Radiologist's impression: Liver: Cirrhotic liver with heterogeneous echotexture. No suspicious mass identified. Gallbladder: No stones or sludge. Gallbladder wall thickening measuring 6 mm. Very mild pericholecystic fluid negative sonographic Saldana`s sign. Common bile duct: Non-dilated, measuring 4 mm. Pancreas: Unremarkable. Right kidney: Normal in size. Normal cortex. Multiple simple renal cysts largest measuring 2 cm within the inferior pole. No suspicious masses, stones, or hydronephrosis. Vasculature: Proximal abdominal aorta and IVC are unremarkable. Patent main portal vein. IMPRESSION: 1. Cirrhotic liver. 2. Thickened gallbladder wall and very mild pericholecystic fluid, likely secondary to cirrhosis. No convincing evidence for cholecystitis. <Zoë Scott MD - Last Filed: 11/29/24 14:36> ECG Data Attestation: I personally reviewed and interpreted this ECG as follows: <Zoë Scott MD - Last Filed: 11/29/24 14:36> ECG interpretation date: 11/28/24 <Zoë Scott MD - Last Filed: 11/29/24 14:36> Interpretation: EKG by my read shows sinus bradycardia at a rate of 56. Prolonged VT interval it 0.214 seconds thus 1st degree block. Widened QRS complex / intraventricular block noted. Unfortunately do not have any old EKGs for comparison. <Zoë Scott MD - Last Filed: 11/29/24 14:36> Discharge Plan Discharge Clinical Impression: Elevated troponin, Pericardial effusion Abdominal pain Qualifiers: Abdominal location: right upper quadrant Qualified Code(s): R10.11 - Right upper quadrant pain Cirrhosis Qualifiers: Ascites presence: with ascites <Zoë Scott MD - Last Filed: 11/29/24 14:36> Patient Disposition: [facility] <Zoë Scott MD - Last Filed: 11/29/24 14:36> Discharge Location: [facility] <Zoë Scott MD - Last Filed: 11/29/24 14:36> Condition: Improved <Zoë Scott MD - Last Filed: 11/29/24 14:36> Additional Instructions: Proceed to [facility]. At a later visit with your physician you will need to address pulmonary nodules, cirrhosis of the liver, pulmonary hypertension, pericardial effusion. You also have a UTI and we will treat this with Keflex twice daily for 7 days. He received your 1st dose tonight. A hand written prescription is available for you to take. <Zoë Scott MD - Last Filed: 11/29/24 14:36>
--- NOTE | 2024-11-28 20:31 | CRLHL7_ITS ---
For Patients: As a result of the 21st Century Cures Act, medical imaging exams and procedure reports are released immediately into your electronic medical record. You may view this report before your referring provider. If you have questions, please contact your health care provider. INDICATION: Chest pain and abdominal pain. TECHNIQUE: CT of the abdomen and pelvis acquired with 95 cc Isovue 370 IV contrast. Coronal and sagittal reconstructions. COMPARISON: None. FINDINGS: Evaluation of the solid organs is limited by arterial phase acquisition. Lower chest: Please refer to separate report. Liver: Nodular liver contour suggesting cirrhosis. Recanalized umbilical vein with apparent periportal edema. No discrete suspicious mass. Gallbladder and bile ducts: The gallbladder is mildly distended with wall thickening and pericholecystic edema. No calcified gallstones are seen. No definite biliary dilation. Spleen: Unremarkable. Pancreas: Unremarkable. Adrenal glands: Unremarkable. Kidneys, Ureters, and Bladder: Symmetric enhancement. Multiple right renal cysts, the largest of which measures 2.0 cm in the lower pole. No hydronephrosis. No obstructing urinary calculi. Circumferential bladder wall thickening. Reproductive organs: Unremarkable. GI tract/Peritoneum: No small bowel dilation. Mild to moderate stool burden. Colonic diverticulosis without evidence of diverticulitis. Negative appendix. No intraperitoneal free air. Small amount of free fluid in the pelvis and adjacent to the liver. Vasculature: Abdominal aorta is normal in caliber. Aortoiliac vascular calcifications. Mesenteric arteries appear patent. Hepatic veins appear grossly patent. The portal veins are not well opacified likely due to phase of contrast. Lymph nodes: Multiple mildly prominent gastrohepatic, molly hepatis, and periaortic lymph nodes may be reactive. Abdominal Wall: Small umbilical hernia containing fat and vessels. Bones: Degenerative changes of the spine. IMPRESSION: 1. Cirrhotic liver morphology with findings of portal hypertension including recanalized umbilical vein and small volume abdominopelvic ascites. There appears to be periportal edema. Correlate with LFTs. 2. The gallbladder is mildly distended with wall thickening and pericholecystic edema. Findings could be due to inflammation or underlying liver disease. Consider further evaluation with right upper quadrant ultrasound. 3. Bladder wall thickening. Correlate with urinalysis. Please note that all CT scans at this facility use dose modulation, iterative reconstruction, and/or weight-based dosing when appropriate to reduce radiation dose to as low as reasonably achievable. Dictated by Kimberlee Colón MD @ 11/28/2024 11:49:53 PM (Electronically Signed)
--- NOTE | 2024-11-28 20:59 | CRLHL7_ITS ---
For Patients: As a result of the 21st Century Cures Act, medical imaging exams and procedure reports are released immediately into your electronic medical record. You may view this report before your referring provider. If you have questions, please contact your health care provider. INDICATION: Shortness of breath, chest pain. TECHNIQUE: CT chest angiogram acquired with 95 cc Isovue 370 IV contrast according to the PE protocol. Coronal and sagittal reconstructions. 3D MIPS post-processing was performed. COMPARISON: None. FINDINGS: Exam limited by streak artifact and motion artifact. Cardiovascular structures: Moderate cardiomegaly. Normal caliber thoracic aorta. The main pulmonary artery is enlarged measuring 3.4 cm which can be seen with pulmonary hypertension. Evaluation of the pulmonary arteries is limited by motion artifact and mixing artifact. No acute pulmonary embolism identified to the level of the segmental branches. There is reflux of contrast into the IVC. Coronary artery and aortic vascular calcifications. Mediastinum and elli: Enlarged mediastinal and bilateral hilar lymph nodes. Small pericardial effusion. Lungs and pleura: Respiratory motion artifact. Moderate upper lung predominant centrilobular emphysema. Diffuse bronchial wall thickening. Small right pleural effusion. Mild bibasilar atelectasis. No focal consolidation or pneumothorax. 4 mm noncalcified pulmonary nodule along the right major fissure (series 5 image 99). Few other tiny nodules. Chest wall: No mass or adenopathy. Left chest AICD with lead in the right ventricle. This causes streak artifact. Upper abdomen: Please refer to separate report. Bones: Mild degenerative changes of the spine. 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 Old bilateral anterior rib fractures. IMPRESSION: 1. Evaluation of the pulmonary arteries is limited by motion artifact and mixing artifact. No acute pulmonary embolism identified to the level of the segmental branches. Dilated main pulmonary artery which can be seen with pulmonary hypertension. 2. Moderate cardiomegaly with small pericardial effusion and small right pleural effusion. There is reflux of contrast into the IVC likely related to underlying right heart dysfunction. 3. Moderate emphysema with diffuse bronchial wall thickening. 4. Noncalcified pulmonary nodules measuring up to 4 mm. Please see follow-up guidelines below. 5. Mediastinal and bilateral hilar lymphadenopathy may be reactive. Follow-up is recommended. [employer] - SOLID NODULES: : MULTIPLE LOW RISK - nodule less than 6 mm: No routine follow-up. - nodule 6-8 mm: CT at 3-6 months, then consider CT at 18-24 months. - nodule greater than 8 mm: CT at 3-6 months, then consider CT at 18-24 months. MULTIPLE HIGH RISK - nodule less than 6 mm: Optional CT at 12 months. - nodule 6-8 mm: CT at 3-6 months, then at 18-24 months. - nodule greater than 8 mm: CT at 3-6 months, then at 18-24 months. Please note that all CT scans at this facility use dose modulation, iterative reconstruction, and/or weight-based dosing when appropriate to reduce radiation dose to as low as reasonably achievable. Dictated by Kimberele Colón MD @ 11/28/2024 11:38:23 PM (Electronically Signed)
[2024-11-28 21:24] LABS: Lactate* 1.1 mmol/L (0.5-1.9)
[2024-11-28 21:25] LABS: Hematocrit 35.7 % (33.0-51.0); Hemoglobin* 11.2 gm/dL (12.0-16.0); Immature Granulocytes Abs Auto 0.01 K/uL (0.00-0.30); Immature Granulocytes Pct Auto 0.2 %; Lymphocytes Absolute Auto 1.21 K/uL (0.90-2.90); Mean Corpuscular HGB Conc 31 gm/dL (32-36); Mean Corpuscular Hemoglobin 30 pg (26-34); Mean Corpuscular Volume 94 fL (80-100); RDW Coefficient of Variation % 13.9 % (11.5-15.5); Red Blood Count 3.80 m/uL (4.00-5.20); White Blood Count* 4.94 K/uL (4.50-11.00)
[2024-11-28 21:26] LABS: Slide Review Reflex No
[2024-11-28 21:29] LABS: Creatinine, Point-of-Care* 1.1 mg/dl (0.6-1.3)
[2024-11-28 21:43] LABS: Albumin* 3.9 g/dL (3.3-5.0); Chloride* 104 mmol/L (96-114)
[2024-11-28 21:44] LABS: Potassium* 4.0 mmol/L (3.6-5.1); Sodium* 135 mmol/L (135-149)
[2024-11-28 21:46] LABS: Blood Urea Nitrogen* 11 mg/dL (7-30); Creatinine* 1.0 mg/dL (0.5-1.5); Est. Creatinine Clearance* 40.63; Estimated Glomerular Filt Rate 61 ml/min
[2024-11-28 21:47] LABS: Alanine Aminotransferase* 11 U/L (4-35); Alkaline Phosphatase* 47 U/L (40-150); Anion Gap 7 mEq/L (7-15); Aspartate Amino Transferase* 21 U/L (12-35); Bilirubin Total* 0.7 mg/dL (0.1-1.5); Calcium* 8.9 mg/dL (8.4-10.6); Carbon Dioxide* 24 mmol/L (20-32); Glucose* 110 mg/dL (60-115); Total Protein* 6.6 g/dL (6.0-8.3)
[2024-11-28 22:01] LABS: Appearance Urine Slightly Cloudy (Clear)
[2024-11-29] VITALS (106 sets, daily range): BP systolic 110–126; BP diastolic 62–79; PULSE 50–67; RESP 3–41; O2SAT 92–100
[2024-11-29 01:19] LABS: Troponin, Point-of-Care* 0.13 ng/ml (0.01-0.04)
[2024-11-29 01:33] LABS: NT Pro B Type NatriureticPept* 7580 pg/mL (See Note)
[2024-11-29] MEDS: ASPIRIN 81 MG TAB.CHEW 324 MG PO (02:40)
[2024-11-29] MEDS: FUROSEMIDE 10 MG/ML inj 40 MG IVP (03:24)
[2024-11-29] MEDS: HEPARIN 5,000 UNIT/0.5 ML INJ 3800 UNIT IVP (03:27)
[2024-11-29] MEDS: HEPARIN 25,000 UNIT/500 ML BAG 15 UNIT IV (03:30)
[2024-11-29 07:50] LABS: Troponin, Point-of-Care* 0.02 ng/ml (0.01-0.04)
--- NOTE | 2024-11-29 23:56 | CRLHL7_ITS ---
For Patients: As a result of the Century Cures Act, medical imaging exams and procedure reports are released immediately into your electronic medical record. You may view this report before your referring provider. If you have questions, please contact your health care provider. INDICATION: Gallbladder wall thickening, periportal edema. TECHNIQUE: Ultrasound abdomen limited. Sonographic images of the right upper quadrant were obtained using be-scale and color Doppler images. COMPARISON: CT abdomen and pelvis from the same day. FINDINGS: Liver: Cirrhotic liver with heterogeneous echotexture. No suspicious mass identified. Gallbladder: No stones or sludge. Gallbladder wall thickening measuring 6 mm. Very mild pericholecystic fluid negative sonographic Saldana`s sign. Common bile duct: Non-dilated, measuring 4 mm. Pancreas: Unremarkable. Right kidney: Normal in size. Normal cortex. Multiple simple renal cysts largest measuring 2 cm within the inferior pole. No suspicious masses, stones, or hydronephrosis. Vasculature: Proximal abdominal aorta and IVC are unremarkable. Patent main portal vein. IMPRESSION: 1. Cirrhotic liver. 2. Thickened gallbladder wall and very mild pericholecystic fluid, likely secondary to cirrhosis. No convincing evidence for cholecystitis. Dictated by Ozzie Heck MD @ 11/29/2024 1:39:13 AM (Electronically Signed)
== END 2024-11-29 15:39 | disposition short-term general hospital (02) ==
PROVIDERS: Emergency Medicine Emergency Medical Services; Emergency Provider Family Medicine; PCP Emergency Medicine
DX: R10.11 Right upper quadrant pain (principal); R79.89 Other specified abnormal findings of blood chemistry; I31.39 Other pericardial effusion (noninflammatory)
CPT/HCPCS: 36415; 71275; 74177; 76705; 80053; 81001; 82565; 83605; 83690; 83735; 83880; 84484; 85025; 85730; 86140; 87086; 93005; 96374; 99284; 99285; A9270; J1644; J1938; J7030; Q9967

== ENCOUNTER 2024-11-29 15:29 | Outpatient (CLI) | payer MEDICARE, SELFPAY | END 2024-11-29 15:30 | disposition home or self-care (01) | PROVIDERS: PCP Emergency Medicine; Visit Provider Student in an Organized Health Care Education/Training Program | DX: R79.89 Other specified abnormal findings of blood chemistry (principal); I31.39 Other pericardial effusion (noninflammatory); K74.60 Unspecified cirrhosis of liver | CPT/HCPCS: A0425; A0427 ==

== ENCOUNTER 2025-02-02 23:08 | Outpatient (CLI) | payer MEDICARE, SELFPAY | END 2025-02-02 23:09 | disposition home or self-care (01) | LOC: AMB 02-03 11:59 | PROVIDERS: PCP Emergency Medicine; Visit Provider Student in an Organized Health Care Education/Training Program | DX: R07.89 Other chest pain (principal) | CPT/HCPCS: A0425; A0427 ==